=== PATIENT | male | born 1950 | race Caucasian/White ===

== ENCOUNTER 2023-01-07 09:55 | Inpatient (IN) | payer OTHER ==
--- OUTSIDE RECORDS SUMMARY | 2023-01-07 10:26 | XMS REPORT | Continuity of Care Document ---
:1950 Author Organization [facility] t Address [address] [place] [address] [place] [id number] Care Team Providers Name Role Phone JATINDER FARRIS Attending Clinician Unavailable Doctor Unassigned, [place] Attending Clinician Unavailable Only, Adc Test Attending Clinician Unavailable Jatinder Farris MD Attending Clinician Pob, Adc Lab Main Attending Clinician Unavailable JATINDER FARRIS Admitting Clinician Unavailable Payers Payer Name Policy Type Policy Number Effective Date Expiration Date S marcelo MEDICARE PART A [id number] 2002 \\T\\ B 00:00:00 [employer] INDEMNITY [id number] 2013 00:00:00 Problems This patient has no known problems. Allergies, Adverse Reactions, Alerts Allergy Allergy Status Severity Reaction(s) Onset Inactive Treating Comm ents Source Name Type Date Date Clinician Hydromor Drug Active Hallucinatio Patient U nivers phone Allergy ns 05-20 states ity of 00:00: that it [place] 00 makes him Medical "nuts" Branch HYDROMOR DRUG Active Med Anxiety Univers PHONE INGREDI 05-20 ity of 00:00: [place] 00 Medical Branch NO KNOWN Drug Active Univers ALLERGIE Class ity of S [facility] Social History Social Habit Start Date Stop Date Quantity Comments Source Sex Assigned At [facility] Medical Branch Exposure to Not sure [facility] SARS-CoV-2 (event) Medica l Branch Tobacco use and 2020-05-20 2020-05-20 Never used [facility] exposure 00:00:00 00:00:00 Medical [place] Smoking Status Start Date Stop Date Source Unknown if ever smoked [facility] Never smoker [facility] Medications Ordered Filled Start Stop Current Ordering Indication Dosage Frequency Signature Comments Components Source Medication Medication Date Date Medication? Clinician (SIG) Name Name morphine ER 2020-0 Yes 30mg Take 30 mg Univers 30 mg 12 hr 9-21 by mouth ity of tablet 13:48: every 12 [place] 37 (twelve) Medical hours. Branch methocarbam 2020-0 Yes 750mg Take 750 U nivers oL 9-21 mg by ity of (ROBAXIN-75 13:48: mouth 2 Bill as 0) 750 mg 37 (two) Medical tablet times Branch daily. amitriptyli 2020-0 Yes 150mg Take 150 U nivers ne 150 mg 9-21 mg by ity of tablet 13:48: mouth at [place] 37 bedtime. Medical Branch morphine ER 2020-0 Yes 30mg Take 30 mg Univers 30 mg 12 hr 9-18 by mouth ity of tablet 20:52: every 12 [place] 05 (twelve) Medical hours. Branch methocarbam 2020-0 Yes 750mg Take 750 U nivers oL 9-18 mg by ity of (ROBAXIN-75 20:52: mouth 2 Bill as 0) 750 mg 05 (two) Medical tablet times Branch daily. amitriptyli 2020-0 Yes 150mg Take 150 U nivers ne 150 mg 9-18 mg by ity of tablet 20:52: mouth at [place] 05 bedtime. Medical Branch Procedures Procedure Date / Time Performing Clinician Source Performed DAY SURGERY - ADC 2020-05-23 05:01:00 Doctor Unassigned, No [facility] CBC WITH DIFF 2020-05-19 15:02:00 Jatinder Farris [facility] PROTHROMBIN TIME / INR 2020-05-19 15:02:00 [facility] 2020-05-19 15:02:00 Jatinder Farris [facility] THRMPLAS TONY [facility] ADC OR CLC ONLY - 2020-05-19 15:02:00 Jatinder Farris [facility] PLATELET FUNCTION TEST Medical B ranch ASSIGNMENT OF BENEFITS 2020-05-19 14:45:32 Doctor Unassigned, No [facility] Encounters Start End Encounter Admission Attending Care Care Encounter Source Date/Time Date/Time Type Type Clinicians Facility Department ID 2021-06-30 Outpatient R ANA FARRIS ISAEL [id number] Univers 18:21:58 JATINDER ity [facility] 2020-05-23 2020-05-23 Orders Doctor WILMER [id number] Univers 00:00:00 00:00:00 Only Unassigned, BECKY 350.1.13.10 ity of [facility] 4.2.7.2.686 Bill as [id number] [address] 2020-05-20 2020-05-20 Laboratory Only, Adc Test [facility] 1.2.840. 114 [id number] Univers 15:56:50 16:11:50 Only Jatinder Farris 350.1.13.1 0 ity of [place]2.686 [place] [id number] [address] 2020-05-20 2020-05-20 Outpatient R KUNAL [facility] [id number] Univers 12:45:00 12:45:00 JATINDER ity [facility] 2020-05-19 2020-05-19 Irrigation System Operator Sheri, Adc Lab Main [facility] 1.2.8 40.114 [id number] Univers 09:40:22 09:55:22 Visit Wendi Farrist Adriel Kyle 350.1.13.1 0 ity of Telephone 4.2.7.2.686 [facility] [id number] [address] 2020-05-19 2020-05-19 [facility] [id number] Univers 09:30:00 09:30:00 JATINDER ity [facility] 2020-05-19 2020-05-19 Orders Doctor WILMER [id number] Univers 00:00:00 00:00:00 Only Unassigned, BECKY 350.1.13.10 ity of [facility] 4.2.7.2.686 Bill as [id number] [address] Results Test Description Test Time Test Comments Results Result Comments Source aPTT 2020-05-19 17:49:00 Test Item Value Reference Range Interpretation Comme nts APTT Patient (test code = See_Comment [ Automated message] The 3173-2) system which ge nerated this result tra nsmitted reference range : 23 - 38 Seconds. The re ference range was not u sed to interpret this result as normal/abnormal . NILAM (test code = NILAM) The [facility] patient population mean normal value for aPTT is 30 seconds. Lab Interpretation (test Normal code = 45541-6) [facility] [id number] 17:47:00 Test Item Value Reference Range Interpretation Comments PROTIME PATIENT (test See_Comment [Auto mated message] code = 5964-2) The system ich generated this result transmitted ref erence range: 12.0 - 1 4.7 Seconds. The re ference range was not u sed to interpret this result as normal/abnor mal. INR (test code = 6301-6) Nor mal INR <1.1; Warfarin Therap eutic range 2.0 to 3. 0 or 2.5 to 3.5, dep ending upon the indica tions. Lab Interpretation (test Normal code = 19963-2) [facility] - PLATELET FUNCTION TEST 2020-05-19 17:45:00 Test Item Value Reference Range Interpretation Comments COL/ADP ADP test not (test code performed due t o = EPI result with in [id number]) normal range. Tommy Adriel Nhung 05/19/2020 12:42 COL/EPI See_Comment [Automated (test code message] The = system which [id number]) generated this result transmitted reference range : 80 - 184 Second s. The reference range was not used to interpr et this result as normal/abnormal . NILAM (test ? code = NILAM) INTERPRETATION/ASSESSMENT OF PLATELET FUNCTION PFA ? Normal ?ASA(Aspirin) ? vWD, Thrombasthenia or Result ? review platelet count and H&H ? COL/EPI ? Normal ?Abnormal ? Abnormal ? COL/ADP ? Not Done ?Normal ? Abnormal If platelets are below 100,000 and both PFA results are abnormal, this indicatesquantitative and/or qualitative platelet abnormality with potential failure toform primary hemostatic plug. ?Platelet supplements should be considered if clinicallyindicated. If platelets are above 100,000 but hematocrit is below 25 and both PFA results areabnormal, this indicates platelet dysfunction due to a disturbance in normal laminarblood flow with a potential to bleed. ?Consider red cell transfusion prior to consideringplatelet supplements. [facility] WITH [id number] 15:09:00 Test Item Value Reference Range Interpretation Comments WBC (test code = See_Comment [Automated 9690-2) message] The sy stem which generated this result transmitted reference range : 4.20 - 10.70 10*3/?L. The reference range was not used to interpret this result as normal/abnormal . RBC (test code = See_Comment [Automated 499-8) message] The sy stem which generated this result transmitted reference range : 4.26 - 5.52 10*6/?L. The reference range was not used to interpret this result as normal/abnormal . HGB (test code = 15.2 g/dL 12.2-16.4 718-7) HCT (test code = 46.5 % 38.4-49.3 4544-3) MCV (test code = 93.2 fL 81.7-95.6 787-2) MCH (test code = 30.5 pg 26.1-32.7 785-6) MCHC (test code = 32.7 g/dL 31.2-35 786-4) RDW-SD (test code = 45.2 fL 38.5-51.6 70954-6) RDW-CV (test code = 13.2 % 12.1-15.4 788-0) PLT (test code = See_Comment [Automated 777-3) message] The sy stem which generated this result transmitted reference range : 150 - 328 10*3/ ?L. The reference r carina was not used to interpret this result as normal/abnormal . MPV (test code = 9.7 fL 9.8-13 L 31471-9) NRBC/100 WBC (test See_Comment [Automat ed code = [id number]) message] The system which generated this result transmitted reference range : 0.0 - 10.0 /100 WBCs. The refer ence range was not u sed to interpret th is result as normal/abnormal . NRBC x10^3 (test code <0.01 See_Comment [Auto mated = [id number]) message] The s ystem which generated this result transmitted reference range : 10*3/?L. The reference range was not used to interpret this result as normal/abnormal . GRAN MAT (NEUT) % 60.9 % (test code = 770-8) IMM GRAN % (test code 0.30 % = 2303270520) LYMPH % (test code = 29.4 % 736-9) MONO % (test code = 6.0 % 5905-5) EOS % (test code = 2.8 % 713-8) BASO % (test code = 0.6 % 706-2) GRAN MAT x10^3(ANC) 3.85 10*3/uL 1.99-6.95 (test code = 3594568214) IMM GRAN x10^3 (test <0.03 0-0.06 code = 5244056604) LYMPH x10^3 (test code 1.86 10*3/uL 1.09-3.23 = 731-0) MONO x10^3 (test code 0.38 10*3/uL 0.36-1.02 = 742-7) EOS x10^3 (test code = 0.18 10*3/uL 0.06-0.53 711-2) BASO x10^3 (test code 0.04 10*3/uL 0.01-0.09 = 704-7) Lab Interpretation Abnormal (test code = 45117-6) [facility]
[2023-01-07 10:59] LABS: Absolute Lymphocytes (CBC) 0.6 K/uL (0.7-4.9); Hematocrit 22.1 % (39.6-49.0); Lymphocytes % 8.7 % (15.3-44.8); MCV 68.6 fL (80-100); MPV 6.5 fL (7.6-11.3); RBC Red Blood Cell Count 3.23 M/uL (4.33-5.43)
[2023-01-07 11:06] LABS: ALT/SGPT 11 U/L (16-61); AST/SGOT 9 U/L (15-37); Albumin 2.5 g/dL (3.4-5.0); Alkaline Phosphatase 89 U/L (45-117); BUN Blood Urea Nitrogen 12 mg/dL (7-18); Bicarbonate 26 mEq/L (21-32); Bilirubin Total 0.3 mg/dL (0.2-1.0); Glomerular Filtration Rate 82 ml/min (=/>90); Glucose Level 119 mg/dL (74-106); Magnesium 2.1 mg/dL (1.6-2.4); NT PRO-BNP 344 pg/mL (<125); Potassium 4.3 mEq/L (3.5-5.1); Protein, Total 6.1 g/dL (6.4-8.2); Sodium Level 133 mEq/L (136-145); Troponin High Sensitivity 13.6 pg/mL (<58.9)
--- NOTE | 2023-01-07 11:14 | RAD REPORT ---
EXAM DESCRIPTION: RAD - Chest Single View - 01/07/2023 10:41 am CLINICAL HISTORY: Dizzy Chest pain. COMPARISON: Abdomen 1 View (KUB) dated 07/29/2017; Abdomen 1 View (KUB) dated 07/16/2017; Abdomen 1 View (KUB) dated 07/08/2017; Abdomen 1 View (KUB) dated 06/25/2017; Outpt Chest Pa/Lat (2 Views) dated 06/25/2017 FINDINGS: Portable technique limits examination quality. Postoperative changes are noted involving the left lung, unchanged. Diffuse COPD. Left lung volume lo ss is noted. The heart is normal in size. No displaced fractures. IMPRESSION: No acute intrathoracic process suspected.
[2023-01-07 11:29] LABS: Bilirubin Direct < 0.1 mg/dL (0-0.2)
[2023-01-07 12:05] LABS: Anisocytosis 2+; Blood Morphology Comment NOTED (NOT SEEN); Platelet Estimate ADEQ; White Blood Cell Scan OK (OK)
--- NOTE | 2023-01-07 12:35 | ER ---
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 nj1 Positive orthostatic vital signs per office staff. No complaints at this moment. 10:06 Method Of Arrival: EMS: [facility] or1 10:06 Coronavirus screen: Vaccine status: Patient reports being unvaccinated. Ebola Screen: [facility] No symptoms or risks identified at this time. Initial Sepsis Screen: Does the patient meet any 2 criteria? HR > 90 bpm. No. Patient's initial sepsis screen is negative. Does the patient have a suspected source of infection? No. Patient's initial sepsis screen is negative. Risk Assessment: Do you want to hurt yourself or someone else? Patient reports no desire to harm self or others. Onset of symptoms was January 07, 2023. 10:06 Acuity: VANITA 3 nj1 10:30 Care prior to arrival: Medication(s) given: Normal saline infusion, 800ml. [facility] Triage Assessment: 10:26 General: Appears in no apparent distress. comfortable, Behavior is calm, cooperative, nj1 appropriate for age. Pain: Denies pain. Neuro: No deficits noted. Level of Consciousness is awake, alert, obeys commands, Oriented to person, place, time, situation. Cardiovascular: Patient's skin is warm and dry. Respiratory: No deficits noted. Airway is patent Respiratory effort is even, unlabored. Historical: - Allergies: 10:06 No Known Allergies; nj1 - Home Meds: 10:06 MS Contin 30 mg Oral tablet, extended release 1 tab every 12 hours for severe chronic nj1 pain requiring long-term opioid treatment [Active]; methocarbamol 750 mg Oral tablet 1 tab twice a day [Active]; amitriptyline 150 mg Oral tablet 1 tab every day at bedtime [Active]; - PMHx: 10:06 Lymphoma (remission); Chronic back pain; nj1 - PSHx: 10:06 Pain pump; nj1 - Immunization history:: Client reports having NOT received the Covid vaccine. - Social history:: Smoking status: Patient denies any tobacco usage or history of. Screenin:27 [facility] ED Fall Risk Assessment (Adult) History of falling in the last 3 months, njDelio including since admission Yes- single mechanical fall (1 pt) Confusion or Disorientation No (0 pts) Intoxicated or Sedated No (0 pts) Impaired Gait Yes (1 pt) Mobility Assist Device Used Yes (1 pt) Altered Elimination No (0 pt) Score/Fall Risk Level 3 or more points = High Risk Oriented to surroundings, Maintained a safe environment, Assessed \T\ reinforced patient's understanding of fall precautions, Hourly rounding (assess needs \T\ fall precautionary measures) done, Used ambulatory aids as needed (educated on \T\ assisted with), Offered frequent toileting (1:1 observation), Remained with patient while ambulating. Abuse screen: Denies threats or abuse. Denies injuries from another. Nutritional screening: No deficits noted. Tuberculosis screening: No symptoms or risk factors identified. Assessment: 10:30 Reassessment: Patient appears in no apparent distress at this time. Patient and/or nj1 family updated on plan of care and expected duration. Pain level reassessed. Patient is alert, oriented x 3, equal unlabored respirations, skin warm/dry/pink. See triage assessment. 11:44 Reassessment: Patient appears in no apparent distress at this time. Patient and/or nj1 family updated on plan of care and expected duration. Pain level reassessed. Patient is alert, oriented x 3, equal unlabored respirations, skin warm/dry/pink. Patient denies pain at this time. Patient states feeling better. Patient states symptoms have improved. 12:30 Reassessment: Patient appears in no apparent distress at this time. Patient and/or nj1 family updated on plan of care and expected duration. Pain level reassessed. Patient is alert, oriented x 3, equal unlabored respirations, skin warm/dry/pink. Patient state he is cannot stay in the hospital, requesting for someone to take him to information services assistant office where his truck is at. 12:50 Reassessment: Upon entering patients room with discharge paperwork and wheelchair, njDelio patient has voiced willingness to stay in hospital and be admitted as advised by ED physician Dr Carpio. This RN notifies charge nurse and ED provider. 14:00 Reassessment: Patient appears in no apparent distress at this time. Patient and/or nj1 family updated on plan of care and expected duration. Pain level reassessed. Patient is alert, oriented x 3, equal unlabored respirations, skin warm/dry/pink. 15:00 Reassessment: Patient appears in no apparent distress at this time. Patient and/or nj1 family updated on plan of care and expected duration. Pain level reassessed. Patient is alert, oriented x 3, equal unlabored respirations, skin warm/dry/pink. 16:00 Reassessment: Patient appears in no apparent distress at this time. Patient and/or nj1 family updated on plan of care and expected duration. Pain level reassessed. Patient is alert, oriented x 3, equal unlabored respirations, skin warm/dry/pink. Blood consent signed. Patient denies pain at this time. 16:22 Reassessment: Unsuccessful attempt to call report at this time, nurse unavailable. [facility] Vital Signs: 10:06 BP 123 / 81; Pulse 106; Resp 18; Temp 98.9(O); Pulse Ox 97% on R/A; Weight 81.65 kg; or1 Height 6 ft. 3 in. ; 11:44 BP 127 / 81; Pulse 94; Resp 18; Pulse Ox 100% on R/A; nj1 13:00 BP 143 / 89; Pulse 90; Resp 18; Pulse Ox 99% on R/A; nj1 14:00 BP 139 / 77; Pulse 88; Resp 18; Pulse Ox 95% ; or1 15:00 BP 129 / 73; Pulse 88; Resp 18; Pulse Ox 99% on R/A; nj1 16:00 BP 137 / 74; Pulse 89; Resp 19; Pulse Ox 100% on R/A; nj1 10:06 Body Mass Index 22.50 (81.65 kg, 190.5 cm) [facility] ED Course: 10:06 Patient has correct armband on for positive identification. Bed in low position. Call [facility] light in reach. Side rails up X 1. 10:10 Patient arrived in ED. aa5 10:12 Jared Carpio MD is Attending Physician. kdr 10:19 Kiana Reeder, CHAN is Primary Nurse. nj1 10:23 Triage completed. nj1 10:26 Arm band placed on. nj1 10:30 Maintain EMS IV. Dressing intact. Good blood return noted. Site clean \T\ dry. Gauge \T\ nj 1 site: 20 R FA. 10:42 XRAY Chest (1 view) In Process Unspecified. EDMS 10:46 EKG done, by ED staff, reviewed by Jared Carpio MD. em1 12:49 Primary Nurse role handed off by Kiana Reeder, RN nj1 13:15 Gonzalo Ram MD is Hospitalizing Provider. kdr 14:01 Kiana Reeder, RN is Primary Nurse. nj1 16:17 No provider procedures requiring assistance completed. nj1 16:17 Patient admitted, IV remains in place. nj1 Administered Medications: No medications were administered Medication: 16:17 VIS not applicable for this client. nj1 Outcome: 12:34 Discharge ordered by . kdr 13:16 Decision to Hospitalize by Provider. kdr 16:10 Admitted to Tele accompanied by tech, via wheelchair, room 407, Report called to Nurse naya Siria, called by Merlin Goodson RN. 16:10 Condition: stable nj1 16:10 Instructed on the need for admit. 16:20 Patient left the ED. nj1 Signatures: Dispatcher [employer] EDMS annePhilly bd Jared Carpio MD MD [facility] Zach Perales em1 Liz Simon, RN RN aa5 Kiana Reeder, RN RN nj1 Corrections: (The following items were deleted from the chart) 12:49 12:43 Patient left the ED. bd nj1 14:34 14:33 BP 143 / 89; Pulse 90bpm; Resp 18bpm; Pulse Ox 99% RA; nj1 nj1 16:18 16:00 Reassessment: Patient appears in no apparent distress at this time. Patient nj1 and/or family updated on plan of care and expected duration. Pain level reassessed. Patient is alert, oriented x 3, equal unlabored respirations, skin warm/dry/pink. Patient denies pain at this time. nj1
--- NOTE | 2023-01-07 12:35 | EDPHYS ---
Physician Documentation [facility] Name: Carlo Neri Age: 72 yrs Sex: Male : 1950 Arrival Date: 01/07/2023 Time: 09:55 Bed 8 Private MD: ED Physician Jared Carpio HPI: 01/07 13:56 This 72 yrs old Male presents to ER via EMS with complaints of Dizziness - Resolved. 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 The office kdr staff performed orthostatics and noted that he was positive. Patient otherwise has no complaints other than feeling generally weak for the past year.. The patient presents with dizziness, generalized weakness, lightheadedness. Onset: The symptoms/episode began/occurred suddenly, just prior to arrival, today. Context: occurred at an office. Modifying factors: The symptoms are alleviated by nothing, the symptoms are aggravated by standing up, changing position. Associated signs and symptoms: The patient has no apparent associated signs or symptoms. Severity of symptoms: At their worst the symptoms were mild moderate just prior to arrival, in the emergency department the symptoms are unchanged. Historical: - Allergies: 10:06 No Known Allergies; nj1 - Home Meds: 10:06 MS Contin 30 mg Oral tablet, extended release 1 tab every 12 hours for severe chronic nj1 pain requiring long-term opioid treatment [Active]; methocarbamol 750 mg Oral tablet 1 tab twice a day [Active]; amitriptyline 150 mg Oral tablet 1 tab every day at bedtime [Active]; - PMHx: 10:06 Lymphoma (remission); Chronic back pain; nj1 - PSHx: 10:06 Pain pump; nj1 - Immunization history:: Client reports having NOT received the Covid vaccine. - Social history:: Smoking status: Patient denies any tobacco usage or history of. ROS: 14:09 Constitutional: Negative for fever, chills, and weight loss, Eyes: Negative for injury, kdr pain, redness, and discharge, Neck: Negative for injury, pain, and swelling, Cardiovascular: Negative for chest pain, palpitations, and edema, Respiratory: Negative for shortness of breath, cough, wheezing, and pleuritic chest pain, Abdomen/GI: Negative for abdominal pain, nausea, vomiting, diarrhea, and constipation, Back: Negative for injury and pain, : Negative for injury, bleeding, discharge, and swelling, MS/Extremity: Negative for injury and deformity, Skin: Negative for injury, rash, and discoloration, Psych: Negative for depression, anxiety, suicide ideation, homicidal ideation, and hallucinations, Allergy/Immunology: Negative for hives, rash, and allergies, Endocrine: Negative for neck swelling, polydipsia, polyuria, polyphagia, and marked weight changes, Hematologic/Lymphatic: Negative for swollen nodes, abnormal bleeding, and unusual bruising. 14:09 Neuro: Positive for dizziness, weakness. Exam: 14:09 Constitutional: This is a well developed, well nourished patient who is awake, alert, kdr and in no acute distress. Head/Face: Normocephalic, atraumatic. Eyes: Pupils equal round and reactive to light, extra-ocular motions intact. Lids and lashes normal. Conjunctiva and sclera are non-icteric and not injected. Cornea within normal limits. Periorbital areas with no swelling, redness, or edema. Neck: Trachea midline, no thyromegaly or masses palpated, and no cervical lymphadenopathy. Supple, full range of motion without nuchal rigidity, or vertebral point tenderness. No Meningismus. Chest/axilla: Normal chest wall appearance and motion. Nontender with no deformity. No lesions are appreciated. Cardiovascular: Regular rate and rhythm with a normal S1 and S2. No gallops, murmurs, or rubs. Normal PMI, no JVD. No pulse deficits. Respiratory: Lungs have equal breath sounds bilaterally, clear to auscultation and percussion. No rales, rhonchi or wheezes noted. No increased work of breathing, no retractions or nasal flaring. Abdomen/GI: Soft, non-tender, with normal bowel sounds. No distension or tympany. No guarding or rebound. No evidence of tenderness throughout. Back: No spinal tenderness. No costovertebral tenderness. Full range of motion. Skin: Warm, dry with normal turgor. Normal color with no rashes, no lesions, and no evidence of cellulitis. MS/ Extremity: Pulses equal, no cyanosis. Neurovascular intact. Full, normal range of motion. Neuro: Awake and alert, GCS 15, oriented to person, place, time, and situation. Cranial nerves II-XII grossly intact. Motor strength 5/5 in all extremities. Sensory grossly intact. Cerebellar exam normal. Normal gait. Psych: Awake, alert, with orientation to person, place and time. Behavior, mood, and affect are within normal limits. Vital Signs: 10:06 BP 123 / 81; Pulse 106; Resp 18; Temp 98.9(O); Pulse Ox 97% on R/A; Weight 81.65 kg; nj1 Height 6 ft. 3 in. ; 11:44 BP 127 / 81; Pulse 94; Resp 18; Pulse Ox 100% on R/A; nj1 13:00 BP 143 / 89; Pulse 90; Resp 18; Pulse Ox 99% on R/A; [facility] 14:00 BP 139 / 77; Pulse 88; Resp 18; Pulse Ox 95% ; [facility] 15:00 BP 129 / 73; Pulse 88; Resp 18; Pulse Ox 99% on R/A; [facility] 16:00 BP 137 / 74; Pulse 89; Resp 19; Pulse Ox 100% on R/A; [facility] 10:06 Body Mass Index 22.50 (81.65 kg, 190.5 cm) [facility] MDM: 10:22 Patient medically screened. [facility] 14:09 Data reviewed: vital signs, nurses notes, lab test result(s), radiologic studies. [facility] 01/07 10:24 Order name: Basic Metabolic Panel; Complete Time: 12:21 [facility] 01/07 10:24 Order name: CBC with Diff; Complete Time: 12:21 [facility] 01/07 10:24 Order name: LFT's; Complete Time: 12:21 [facility] 01/07 10:24 Order name: Magnesium; Complete Time: 12:21 [facility] 01/07 10:24 Order name: NT PRO-BNP; Complete Time: 12:21 [facility] 01/07 10:24 Order name: Troponin HS; Complete Time: 12:21 [facility] 01/07 11:06 Order name: CBC Smear Scan; Complete Time: 12:21 [facility] 01/07 13:19 Order name: Bb Add On bd 01/07 13:57 Order name: Type And Screen bd 01/07 14:05 Order name: Packed RBC Leukored EDAZ 01/07 10:24 Order name: XRAY Chest (1 view); Complete Time: 12:21 [facility] 01/07 10:24 Order name: EKG; Complete Time: 10:24 [facility] 01/07 10:24 Order name: Cardiac monitoring; Complete Time: 10:37 kdr 01/07 10:24 Order name: EKG - Nurse/Tech; Complete Time: 10:46 kdr 01/07 10:24 Order name: IV Saline Lock; Complete Time: 10:37 kdr 01/07 10:24 Order name: Labs collected and sent; Complete Time: 10:37 kdr 01/07 10:24 Order name: O2 Per Protocol; Complete Time: 10:28 kdr 01/07 10:24 Order name: O2 Sat Monitoring; Complete Time: 10:28 kdr Administered Medications: No medications were administered Disposition Summary: 01/07/23 13:16 Hospitalization Ordered Hospitalization Status: Observation kdr Provider: Gonzalo Ram Location: Telemetry/MedSurg (observation)(01/07/23 13:16) kdr Condition: Fair(01/07/23 13:16) kdr Problem: new(01/07/23 13:16) kdr Symptoms: have improved(01/07/23 13:16) kdr Bed/Room Type: Standard kdr Room Assignment: 407(01/07/23 15:44) dw Diagnosis - Anemia, unspecified(01/07/23 13:16) kdr - Weakness(01/07/23 13:16) kdr - Dizziness kdr Forms: - Medication Reconciliation Form kdr - SBAR form kdr Signatures: Dispatcher [employer] Daphne Reich RN RN dw Abdulkadir Mcgowan MD MD cha Rittger, Kevin, MD MD kdr Jaco, Norma, RN RN nj1 Corrections: (The following items were deleted from the chart) 13:14 12:34 Home kdr kdr 13:14 12:34 new kdr kdr 13:14 12:34 are unchanged kdr kdr 13:14 12:34 Stable kdr kdr 13:14 12:34 Weakness kdr kdr 13:14 12:34 Anemia, unspecified kdr kdr 13:14 12:34 Dizziness kdr kdr 15:44 13:16 kdr dw
[2023-01-07] MEDS ORDERED: HYDROCODONE/APAP 5/325 MG TAB PO PRN (14:39)
[2023-01-07] MEDS ORDERED: ACETAMINOPHEN 325 MG TABLET PO PRN (14:39)
[2023-01-07] MEDS ORDERED: SODIUM CHLORIDE 0.9% 10ML INJ IV PRN (14:45)
[2023-01-07 16:35] VITALS: BMI 22.5
[2023-01-07] MEDS ORDERED: NA CHLORIDE 0.9% 250 ML ONE (17:00)
[2023-01-07] MEDS ORDERED: NALOXONE 0.4 MG/ML VIAL IV PRN (17:29)
[2023-01-07] MEDS ORDERED: [UNRECOGNIZED DRUG - OTHER] IV SCH (17:30)
[2023-01-07] MEDS: PANTOPRAZOLE 40 MG INJ IVP SCH ×2 (18:03→21:00)
[2023-01-07] MEDS: MORPHINE *EXTENDED RELEASE* 15 MG TAB PO SCH (18:56)
[2023-01-07] MEDS: methocarbamoL 750 MG TAB PO SCH (19:00)
[2023-01-07] MEDS: AMITRIPTYLINE 50 MG TAB PO SCH (21:00)
[2023-01-07] MEDS ORDERED: MORPHINE SULFATE 30 MG PO SCH (21:00)
[2023-01-07] MEDS ORDERED: AMITRIPTYLINE HCL 150 MG PO SCH (21:00)
--- NOTE | 2023-01-08 04:38 | P.HP ---
Certification for Inpatient Patient admitted to: Observation With expected LOS: <2 Midnights Patient will require the following post-hospital care: None Practitioner: I am a practitioner with admitting privileges, knowledge of patient current condition, hospital course, and medical plan of care. Services: Services provided to patient in accordance with Admission requirements found in Title 42 Section 412.3 of the Code of Federal Regulations Patient History Date of Service: 01/07/23 Reason for admission: Dizziness and Lightheadedness History of Present Illness: Patient is a 72-year-old male with a past medical history significant for chronic back pain, lymphoma who presents with complaint of dizziness and lightheadedness onset today. 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 Patient reported that his BP was noted to be low. Patient was referred to the ER. Patient reported associated signs and symptoms of bilateral lower extremity edema, fatigue, weakness and shortness of breath with exertion. Patient denies any other signs and symptoms. Symptoms are aggravated or relieved by nothing. Patient decided to present to the hospital as directed. Allergies hydromorphone [From Dilaudid] Adverse Reaction (Verified 07/16/17 09:53) hallucinations Home Medications: Amitriptyline HCl 150 mg PO BEDTIME 06/25/17 Morphine Sulfate [Ms Contin] 30 mg PO BID 06/25/17 Pain Pump 1 appl IV CONT 06/25/17 methocarbamoL [Robaxin] 750 mg PO BID 06/25/17 - Past Medical/Surgical History Has patient received pneumonia vaccine in the past: Yes -: lymphoma -: chronic back pain -: pain pump -: back sx -: skin ca removals -: lens implants bilateral -: appy -: lung sx -: bilateral knee sx -: rectal fistula -: bilateral bunyun removal - Social History Smoking Status: Former smoker Alcohol use: No CD- Drugs: No Caffeine use: Yes Place of Residence: Home Review of Systems General: Weakness, Other (Fatigue) Eyes: Unremarkable ENT: Unremarkable Respiratory: SOB with Excertion Cardiovascular: Light Headedness Gastrointestinal: Unremarkable Genitourinary: Unremarkable Musculoskeletal: Back Pain, Pedal edema Integumentary: Unremarkable Neurological: Other (Dizziness ) Physical Examination - Vital Signs Temperature: 98.3 F Blood Pressure: 119/68 Pulse: 91 Respirations: 16 Pulse Ox (%): 99 - Physical Exam General: Alert, In no apparent distress, Cooperative HEENT: Atraumatic, PERRLA, Mucous membr. moist/pink, EOMI, Sclerae nonicteric Neck: Supple, 2+ carotid pulse no bruit, No LAD, Without JVD or thyroid abnormality Respiratory: Clear to auscultation bilaterally, Normal air movement Cardiovascular: Regular rate/rhythm, Normal S1 S2, Edema Capillary refill: <2 Seconds Gastrointestinal: Normal bowel sounds, No tenderness Musculoskeletal: No clubbing, No tenderness Integumentary: No rashes Neurological: Normal gait, Normal speech, Normal strength at 5/5 x4 extr, Normal tone, Normal affect Lymphatics: No axilla or inguinal lymphadenopathy - Studies Laboratory Data (last 24 hrs) 01/07/23 10:34: WBC 6.80, Hgb 6.9 L, Hct 22.1 L, Plt Count 401 01/07/23 10:34: Sodium 133 L, Potassium 4.3, BUN 12, Creatinine 0.98, Glucose 119 H, Magnesium 2.1, Total Bilirubin 0.3, AST 9 L, ALT 11 L, Alkaline Phosphatase 89 Assessment and Plan - Plan ---Symptomatic anemia. Patient denies any GI bleed. Pending PRBC transfusion. Gastroenterology consulted. Patient placed on Protonix. Will await further recommendations. --Chronic back pain. We will manage pain with current pain medication regimen. --History of lymphoma. Status post chemotherapy. Patient reported remission. --CKD 2. Stable. We will continue to monitor renal function. --BLE edema. BNP elevated. Echo pending to assess cardiac structures and functions. Continue supportive care -- DVT prophylaxis with SCDs. Discharge Plan: Home Plan to discharge in: 48 Hours - Advance Directives Does patient have a Living Will: No Does patient have a Durable POA for Healthcare: No - Code Status/Comfort Care Code Status Assessed: Yes Physician Review: Patient Assessed, Agree with Above Assessment and Plan Critical Care: No
[2023-01-08] MEDS ORDERED: ONDANSETRON 4 MG/2 ML VIAL IV PRN (04:43)
[2023-01-08 06:43] LABS: Absolute Lymphocytes (CBC) 1.1 K/uL (0.7-4.9); Lymphocytes % 15.5 % (15.3-44.8); MPV 6.6 fL (7.6-11.3)
[2023-01-08 06:54] LABS: AST/SGOT 10 U/L (15-37); Albumin 2.3 g/dL (3.4-5.0); Alkaline Phosphatase 91 U/L (45-117); BUN Blood Urea Nitrogen 10 mg/dL (7-18); Bicarbonate 28 mEq/L (21-32); Bilirubin Total 0.7 mg/dL (0.2-1.0); Glomerular Filtration Rate 92 ml/min (=/>90); Glucose Level 92 mg/dL (74-106); Phosphorus 2.8 mg/dL (2.5-4.9); Potassium 4.4 mEq/L (3.5-5.1); Protein, Total 6.6 g/dL (6.4-8.2); Sodium Level 135 mEq/L (136-145)
[2023-01-08] MEDS: methocarbamoL 750 MG TAB PO SCH ×2 (06:54→18:47)
[2023-01-08] MEDS: MORPHINE *EXTENDED RELEASE* 15 MG TAB PO SCH ×2 (06:54→18:47)
[2023-01-08 06:55] LABS: Magnesium 2.2 mg/dL (1.6-2.4)
[2023-01-08 06:59] LABS: ALT/SGPT < 10 U/L (16-61)
--- NOTE | 2023-01-08 07:53 | EKG ---
Test Date: 2023-01-07 Test Time: 10:41:57 Hotel Houseman: HIMANSHU MEASUREMENT RESULTS: Intervals: Rate: 103 CT: 154 QRSD: 108 QT: 360 QTc: 471 Liberal: P: 77 CT: 154 QRS: 68 T: 76 INTERPRETIVE STATEMENTS: Sinus tachycardia Otherwise normal ECG Compared to ECG 06/25/2017 11:19:40 Sinus rhythm no longer present Electronically Signed On 01-08-23 07:52:29 CDT by Abraham Smith
[2023-01-08] MEDS ORDERED: ASPIRIN 81 MG CHEWABLE TABLET PO SCH (09:00)
[2023-01-08] MEDS: PANTOPRAZOLE 40 MG INJ IVP SCH ×2 (09:36→21:02)
--- NOTE | 2023-01-08 16:16 | P.PN ---
Subjective Date of Service: 01/08/23 Chief Complaint: Dizziness and Lightheadedness No acute events overnight. He has received 1 unit pRBCs, without any issues. He denies any bleeding, particularly any hematemesis, hematochezia, melena, hemoptysis, or hematuria. He denies any chest pain, palpitations, or shortness of breath. Review of Systems 10-point ROS is otherwise unremarkable General: Weakness (generalized) Physical Examination - Vital Signs Temperature: 98.3 F Blood Pressure: 118/71 Pulse: 86 Respirations: 18 Pulse Ox (%): 97 - Physical Exam General: Alert, In no apparent distress, Oriented x3 HEENT: Atraumatic, Mucous membr. moist/pink, Sclerae nonicteric Neck: JVD not distended Respiratory: Clear to auscultation bilaterally, Normal air movement Cardiovascular: Regular rate/rhythm, Normal S1 S2, No gallops, No rubs, No murmurs, Edema (trace BLE) Gastrointestinal: Normal bowel sounds, Soft and benign, Non-distended, No tenderness, No rebound, No guarding Musculoskeletal: No clubbing Integumentary: No rashes Neurological: Normal speech, Normal affect Assessment And Plan - Plan # Symptomatic Anemia - Consulted Gastroenterology - recommendations appreciated - Serial H&H - Hgb: 6.9 -> 8.7 (was 14.0 in June 2017) - S/P 1 unit pRBCs this admission - Transfuse for Hgb < 7.0 - 2 large bore IVs - Pantoprazole 40 mg IV BID - NPO pending GI recs # Chronic Back Pain s/p Pain Pump # History of Lymphoma Continue home pain pump, acetaminophen, amitriptyline, methocarbamol, and morphine Gonzalo Ram M.D.
[2023-01-08 18:36] LABS: Hematocrit 29.5 % (39.6-49.0)
[2023-01-08] MEDS: AMITRIPTYLINE 50 MG TAB PO SCH (21:00)
[2023-01-09 06:44] LABS: Absolute Lymphocytes (CBC) 1.4 K/uL (0.7-4.9); Hematocrit 30.8 % (39.6-49.0); Lymphocytes % 21.1 % (15.3-44.8); MCV 72.9 fL (80-100); MPV 6.6 fL (7.6-11.3); RBC Red Blood Cell Count 4.23 M/uL (4.33-5.43)
[2023-01-09] MEDS: methocarbamoL 750 MG TAB PO SCH ×2 (06:48→18:22)
[2023-01-09] MEDS: MORPHINE *EXTENDED RELEASE* 15 MG TAB PO SCH ×2 (06:48→18:23)
[2023-01-09 06:57] LABS: Potassium 3.7 mEq/L (3.5-5.1)
[2023-01-09] MEDS: PANTOPRAZOLE 40 MG INJ IVP SCH ×2 (07:50→20:43)
[2023-01-09] MEDS ORDERED: POTASSIUM 25 MEQ EFFERV TAB PO ONE (09:00)
--- NOTE | 2023-01-09 10:26 | ECHO ---
HEIGHT: 6 ft 3 in WEIGHT: 180 lb 0 oz DATE OF STUDY: 01/08/[address]: Peter Feldman 2-DIMENSIONAL: YES M.MODE: YES DOPPLER: YES COLOR FLOW: YES TDS: NO PORTABLE: YES DEFINITY: NO BUBBLE STUDY: NO DIAGNOSIS: BILATERAL LOWER EXTREMITY EDEMA, ELEVATED BNP CARDIAC HISTORY: CATHERIZATION: SURGERY: PROSTHETIC VALVE: PACEMAKER: MEASUREMENTS (cm) DIASTOLIC (NORMALS) SYSTOLIC (NORMALS) IVSd 1.0 (0.6-1.2) LA Diam 3.4 (1.9-4.0) LVEF 58% LVIDd 5.0 (3.5-5.7) LVIDs 3.5 (2.0-3.5) %FS 30% LVPWd 1.0 (0.6-1.2) Ao Diam 3.0 (2.0-3.7) 2 DIMENSIONAL ASSESSMENT: RIGHT ATRIUM: NORMAL LEFT ATRIUM: NORMAL RIGHT VENTRICLE: NORMAL LEFT VENTRICLE: NORMAL TRICUSPID VALVE: NORMAL MITRAL VALVE: MITRAL ANNULAR CALCIFICATION PULMONIC VALVE: NORMAL AORTIC VALVE: SCLEROSIS PERICARDIAL EFFUSION: NONE AORTIC ROOT: NORMAL LEFT VENTRICULAR WALL MOTION: DECREASED LEFT VENTRICULAR COMPLIANCE. DOPPLER/COLOR FLOW: MILD TRICUSPID AND MITRAL REGURGITATION. NORMAL RIGHT VENTRICULAR SYSTOLIC PRESSURE. COMMENTS: 1. GRADE I DIASTOLIC DYSFUNCTION. 2. MILD TRICUSPID AND MITRAL REGURGITATION. 3. MITRAL ANNULAR CALCIFICATION. 4. AORTIC SCLEROSIS. TECHNOLOGIST: Marie WADDELL
[2023-01-09] MEDS ORDERED: Ringers Lactate 1,000 ML IV ONE (11:17)
[2023-01-09] MEDS ORDERED: BISACODYL E.C. 5 MG TAB PO ONE (12:43)
[2023-01-09] MEDS ORDERED: MAGNESIUM CITRATE 300 ML BOT PO ONE (13:00)
[2023-01-09] MEDS ORDERED: LIDOCAINE 1% MPF 5 ML VIAL ONE (13:07)
[2023-01-09] MEDS ORDERED: propofoL 200 MG/20 ML VIAL IV ONE ×2 (13:07)
[2023-01-09] MEDS ORDERED: GOLYTELY 4000 ML PO ONE (14:00)
[2023-01-09] MEDS: METOCLOPRAMIDE 10 MG/2mL INJ IV SCH ×2 (14:17→18:24)
--- NOTE | 2023-01-09 17:09 | P.PN ---
Subjective Date of Service: 01/09/23 Chief Complaint: Dizziness and Lightheadedness No acute events overnight. His hemoglobin has stabilized. He reports no evidence of bleeding. Per Dr. Lloyd, plan for EGD today. He denies any chest pain, palpitations, or shortness of breath. Review of Systems 10-point ROS is otherwise unremarkable Physical Examination - Vital Signs Temperature: 97.6 F Blood Pressure: 124/69 Pulse: 95 Respirations: 16 Pulse Ox (%): 98 Assessment And Plan - Plan - Physical Exam General: Alert, In no apparent distress, Oriented x3 HEENT: Atraumatic, Mucous membr. moist/pink, Sclerae nonicteric Neck: JVD not distended Respiratory: Clear to auscultation bilaterally, Normal air movement Cardiovascular: Regular rate/rhythm, No murmurs, No edema Gastrointestinal: Normal bowel sounds, Soft, Non-distended, No tenderness Musculoskeletal: No clubbing Integumentary: No rashes Neurological: Normal speech, Normal affect # Symptomatic Anemia - Consulted Gastroenterology and spoke with Dr. Del Rosario- recommendations appr eciated - Plan for EGD today - Serial H&H - Hgb: 6.9 -> 8.7 -> 9.6 (was 14.0 in June 2017) - S/P 1 unit pRBCs this admission - Transfuse for Hgb < 7.0 - 2 large bore IVs - Pantoprazole 40 mg IV BID - NPO pending GI recs # Chronic Back Pain s/p Pain Pump # History of Lymphoma Continue home pain pump, acetaminophen, amitriptyline, methocarbamol, and morphine Gonzalo Ram M.D.
[2023-01-09] MEDS: AMITRIPTYLINE 50 MG TAB PO SCH (20:43)
[2023-01-10] MEDS: METOCLOPRAMIDE 10 MG/2mL INJ IV SCH (00:53)
[2023-01-10] MEDS: methocarbamoL 750 MG TAB PO SCH ×2 (06:30→18:26)
[2023-01-10] MEDS: MORPHINE *EXTENDED RELEASE* 15 MG TAB PO SCH ×2 (06:30→18:26)
[2023-01-10 06:48] LABS: Hematocrit 29.9 % (39.6-49.0)
[2023-01-10 07:04] LABS: Potassium 4.1 mEq/L (3.5-5.1)
[2023-01-10] MEDS: PANTOPRAZOLE 40 MG INJ IVP SCH (07:51)
[2023-01-10] MEDS ORDERED: Ringers Lactate 1,000 ML IV ONE (14:07)
--- NOTE | 2023-01-10 14:08 | P.PN ---
Subjective Date of Service: 01/10/23 Chief Complaint: Dizziness and Lightheadedness No acute events overnight. EGD yesterday revealed gastritis and duodenitis. Pathology report returned positive for Helicobacter Pylori. He reports that he feels that his symptoms have improved significantly since admission. He denies any abdominal pain, nausea, vomiting, diarrhea, or evidence of bleeding. Per Dr. Del Rosario, plan is for colonoscopy for today. Review of Systems 10-point ROS is otherwise unremarkable Physical Examination - Vital Signs Temperature: 97.7 F Blood Pressure: 121/61 Pulse: 103 Respirations: 16 Pulse Ox (%): 92 Assessment And Plan - Plan - Physical Exam General: Alert, In no apparent distress, Oriented x3 HEENT: Atraumatic, Mucous membr. moist/pink, Sclerae nonicteric Neck: JVD not distended Respiratory: Clear to auscultation bilaterally, Normal air movement Cardiovascular: Regular rate/rhythm, No murmurs, No edema Gastrointestinal: Normal bowel sounds, Soft, Non-distended, No tenderness Musculoskeletal: No clubbing Integumentary: No rashes Neurological: Normal speech, Normal affect # Symptomatic Anemia likely secondary to Helicobacter Pylori Gastritis/Duodenitis - Consulted Gastroenterology and spoke with Dr. Del Rosario- recommendations appreciated - EGD (01/09) = "A Small bowel, biopsy: - Duodenal mucosa with features consistent with peptic duodenitis B Stomach, biopsy: - Antral and oxyntic mucosa with focally active, chronic gastritis, Helicobacter related - Rare helicobacter organisms are identified on Diff Quick special stain - Negative for intestinal metaplasia and dysplasia" - Plan for colonoscopy today - Serial H&H - Hgb: 6.9 -> 8.7 -> 9.6 -> 9.5 (was 14.0 in June 2017) - S/P 1 unit pRBCs this admission - Transfuse for Hgb < 7.0 - 2 large bore IVs - Pantoprazole 40 mg IV BID - NPO pending GI recs # Chronic Back Pain s/p Pain Pump # History of Lymphoma Continue home pain pump, acetaminophen, amitriptyline, methocarbamol, and morphine Gonzalo Ram M.D.
[2023-01-10] MEDS ORDERED: propofoL 200 MG/20 ML VIAL IV ONE (14:54)
[2023-01-10] MEDS: AMOX/K CLAV 875 MG TAB PO SCH ×2 (16:59→20:58)
[2023-01-10] MEDS: PANTOPRAZOLE 40MG TABLET PO SCH (16:59)
--- NOTE | 2023-01-10 17:14 | RAD REPORT ---
EXAM DESCRIPTION: CTChest Abdomen Pelvis W Cont - 01/10/2023 4:36 pm CLINICAL HISTORY: Anal / rectal mass COMPARISON: No comparisons TECHNIQUE: CT of the chest, abdomen, and pelvis was performed. All CT scans are performed using dose optimization technique as appropriate and may include automated exposure control or mA/KV adjustment according to patient size. FINDINGS: Thorax: Chest Wall: No abnormal mass Lungs: Round atelectasis at the left lung base . Pleura: Chronic appearing small left pleural effusion. Cher/Mediastinum: No lymphadenopathy. Small hiatal hernia. Circumferentially thickened distal esophag us. Aorta/Pulmonary Arteries: Incidentally noted pulmonary emboli in the right lung with overall small cl ot burden. The emboli are segmental. Heart: Normal size. Abdomen/Pelvis: Liver: No acute abnormality or suspicious lesions. Biliary: Distended gallbladder. Nonspecific mild extrahepatic biliary duct dilatation. Stomach: No significant focal abnormality. Duodenum: No significant focal abnormality. Pancreas: Atrophic pancreas. There is some calcifications in the region of the pancreatic head. This could be from sequela of chronic pancreatitis. Spleen: No significant abnormality. Adrenal: No suspicious lesions. Kidney/ureter: No hydronephrosis. Right lower pole renal cyst. Other too small to characterize renal lesions are likely benign. Retroperitoneum: No retroperitoneal adenopathy. Vascular: No aneurysm. Bowel: Locally aggressive rectal adenocarcinoma with at least partial obstruction resulting in a dist al bowel obstruction. The mass extends into the sacrum and coccyx. It measures approximately 9.1 x 8. 1 cm.. Markedly dilated colon with a large volume of both formed and liquid stool. Peritoneum: Single enlarged perirectal lymph node measuring 6 millimeters . Mild inguinal lymphadenop athy . Bladder: Grossly unremarkable. Reproductive: No adnexal masses. Bones: No acute fracture. The right L2 compression fracture . Other: n/a IMPRESSION: 1. Locally aggressive rectal neoplasm with at least partial distal colonic obstruction a nd osseous invasion of the lower sacrum/coccyx. Single prominent perirectal lymph node . No evidence of distant metastatic disease. 2. Incidentally noted right-sided pulmonary emboli with small clot burden. Discussed with Dr. Ram by Dr. Lopez at 1705 on 01/10/23
[2023-01-10] MEDS: CLARITHROMYCIN 500 MG TABLET PO SCH ×2 (17:24→20:58)
[2023-01-10] MEDS: ENOXAPARIN 80 MG/0.8 ML SQ SCH (20:59)
[2023-01-10] MEDS: AMITRIPTYLINE 50 MG TAB PO SCH (21:00)
[2023-01-11 05:14] LABS: Absolute Lymphocytes (CBC) 1.6 K/uL (0.7-4.9); Hematocrit 26.4 % (39.6-49.0); Lymphocytes % 20.5 % (15.3-44.8); MCV 71.9 fL (80-100); MPV 6.7 fL (7.6-11.3); RBC Red Blood Cell Count 3.68 M/uL (4.33-5.43)
[2023-01-11 05:37] LABS: AST/SGOT 8 U/L (15-37); Albumin 2.2 g/dL (3.4-5.0); Alkaline Phosphatase 86 U/L (45-117); BUN Blood Urea Nitrogen 11 mg/dL (7-18); Bicarbonate 33 mEq/L (21-32); Bilirubin Total 0.4 mg/dL (0.2-1.0); Carcinoembryonic Antigen 109.2 ng/mL (0-5.0); Glomerular Filtration Rate 93 ml/min (=/>90); Glucose Level 85 mg/dL (74-106); Potassium 4.3 mEq/L (3.5-5.1); Protein, Total 5.4 g/dL (6.4-8.2); Sodium Level 137 mEq/L (136-145)
[2023-01-11 05:43] LABS: ALT/SGPT < 10 U/L (16-61)
[2023-01-11] MEDS: MORPHINE *EXTENDED RELEASE* 15 MG TAB PO SCH (06:44)
[2023-01-11] MEDS: methocarbamoL 750 MG TAB PO SCH (06:45)
[2023-01-11] MEDS: PANTOPRAZOLE 40MG TABLET PO SCH (07:44)
[2023-01-11] MEDS: AMOX/K CLAV 875 MG TAB PO SCH (07:44)
[2023-01-11] MEDS: CLARITHROMYCIN 500 MG TABLET PO SCH (07:45)
[2023-01-11] MEDS: ENOXAPARIN 80 MG/0.8 ML SQ SCH (07:45)
[2023-01-11 11:57] VITALS: O2SAT 94
[2023-01-11 12:13] VITALS: BP 116/56; TEMP 98
[2023-01-11 13:44] LABS: Hematocrit 25.9 % (39.6-49.0)
--- NOTE | 2023-01-11 13:57 | P.DS ---
Admission Date: 01/07/23 Discharge Date: 01/11/23 Disposition: TRANSFER TO [facility] Comment: [facility] Discharge Condition: GOOD Reason for Admission: Dizziness and Lightheadedness Consultations: 1. Gastroenterology Procedures: - 01/09/2023 - Esophagogastroduodenoscopy - 01/10/2023 - Colonoscopy Hospital Course: DIAGNOSES: # Partial Distal Bowel Obstruction secondary to Rectal Mass # Chronic Blood Loss Anemia suspect secondary to Rectal Cancer # Right-Sided Segmental Pulmonary Embolism with Small Clot [place] # Helicobacter Pylori Gastritis/Duodenitis # Chronic Back Pain s/p Pain Pump # History of Lymphoma HOSPITAL COURSE: Mr. Carlo Neri is a pleasant 72-year-old male with a past medical history significant for chronic back pain s/p pain pump, and history of lymphoma in remission who was admitted to the [facility] on 01/07/2023 for lightheadedness and dizziness. He was admitted to the Medicine service. Upon further evaluation, he was found to have a hemoglobin of 6.9. He was given 1 unit of PRBCs and gastroenterology was consulted. He was evaluated by Dr. Del Rosario, and underwent an esophagogastroduodenoscopy on 01/09/2023. This study revealed, "a Small bowel, biopsy: - Duodenal mucosa with features consistent with peptic duodenitis B Stomach, biopsy: - Antral and oxyntic mucosa with focally active, chronic gastritis, Helicobacter related - Rare helicobacter organisms are identified on Diff Quick special stain - Negative for intestinal metaplasia and dysplasia." A colonoscopy was attempted yesterday, and upon insertion of the colonoscope, a large rectal mass was observed. A CT chest/abdomen/pelvis was obtained which revealed, "1. Locally aggressive rectal neoplasm with at least partial distal colonic obstruction and osseous invasion of the lower sacrum/coccyx. Single prominent perirectal lymph node. No evidence of distant metastatic disease. 2. Incidentally noted right-sided pulmonary emboli with small clot burden." He was started on triple therapy for the Helicobacter Pylori and on enoxaparin for the incidentally noted pulmonary embolism. It was recommended that he be transferred to the [facility] for colorectal surgery evaluation. A doc-to-doc was completed with Dr. Shepherd ([facility] Colorectal Surgery), who has generously accepted to consult on his case. A doc-to-doc was completed with Dr. Evans ([facility] Hospitalist), who has generously accepted him for transfer. On 01/11/2023, he was seen on rounds and deemed medically stable for transfer. He was given the opportunity to ask questions and reported no further questions. Furthermore, all questions were answered to the best of my ability. A copy of this discharge summary will be sent to the above providers to facilitate continuity of care. Today, I personally spent 35 minutes on his case, of which greater than 50% of the time was spent in patient education, counseling, and coordination of care as described above. - Physical Exam General: Alert, In no apparent distress, Oriented x3 HEENT: Atraumatic, Mucous membr. moist/pink, Sclerae nonicteric Neck: JVD not distended Respiratory: Clear to auscultation bilaterally, Normal air movement Cardiovascular: Regular rate/rhythm, No murmurs, No edema Gastrointestinal: Normal bowel sounds, Soft, Non-distended, No tenderness Musculoskeletal: No clubbing Integumentary: No rashes Neurological: Normal speech, Normal affect Vital Signs/Physical Exam: Temp Pulse Resp BP Pulse Ox 98.0 F 86 16 116/56 L 93 01/11/23 12:00 01/11/23 12:00 01/11/23 12:00 01/11/23 12:00 01/11/23 12:00 Laboratory Data at Discharge: WBC 8.00 thou/uL (4.3-10.9) 01/11/23 04:03 Hgb 8.4 g/dL (13.6-17.9) L D 01/11/23 04:03 Hct 26.4 % (39.6-49.0) L 01/11/23 04:03 Plt Count 348 thou/uL (152-406) 01/11/23 04:03 Sodium 137 mEq/L (136-145) 01/11/23 04:03 Potassium 4.3 mEq/L (3.5-5.1) 01/11/23 04:03 BUN 11 mg/dL (7-18) 01/11/23 04:03 Creatinine 0.86 mg/dL (0.70-1.30) 01/11/23 04:03 Glucose 85 mg/dL (74-106) 01/11/23 04:03 Phosphorus 2.8 mg/dL (2.5-4.9) 01/08/23 05:59 Magnesium 2.2 mg/dL (1.6-2.4) 01/08/23 05:59 Total Bilirubin 0.4 mg/dL (0.2-1.0) 01/11/23 04:03 AST 8 U/L (15-37) L 01/11/23 04:03 ALT < 10 U/L (16-61) L 01/11/23 04:03 Alkaline Phosphatase 86 U/L (45-117) 01/11/23 04:03 Home Medications: Amitriptyline HCl 150 mg PO BEDTIME 06/25/17 Morphine Sulfate [Ms Contin] 30 mg PO BID 06/25/17 Pain Pump 1 appl IV CONT 06/25/17 methocarbamoL [Robaxin*] 750 mg PO BID 06/25/17 Amox/Clavulanate [Augmentin 875-125 Tab*] 875 mg PO BID tab 01/11/23 Clarithromycin [Biaxin] 500 mg PO BID 01/11/23 Enoxaparin Sodium [Lovenox 80 MG INJ*] 80 mg SQ Q12HR syr 01/11/23 Ondansetron [Zofran*] 4 mg IV Q6HP PRN vial 01/11/23 Pantoprazole [Protonix Tab*] 40 mg PO BIDAC tab 01/11/23 Physician Discharge Instructions: - Continue care at [facility] Diet: NPO Activity: Fall precautions Followup: Alberto Del Rosario MD [ASSOCIATE-ACTIVE - CAN ADMIT] - GINA ROSENBERG [OUTSIDE PHYSICIAN] - Time spent managing pt's care (in minutes): 35
== END 2023-01-11 15:25 | disposition short-term general hospital (02) | DRG 374 ==
LOC: ER 09:55 → ERHOLD 14:39 → 4TH 16:14
PROVIDERS: ADMIT Internal Medicine; ATTEND Internal Medicine
PROC: 30233N1 Transfusion of Nonautologous Red Blood Cells into Peripheral Vein, Percutaneous Approach (ICD-10-PCS; 2023-01-08)
PROC: 0DB68ZX Excision of Stomach, Via Natural or Artificial Opening Endoscopic, Diagnostic (ICD-10-PCS; 2023-01-10)
PROC: 0DB78ZX Excision of Stomach, Pylorus, Via Natural or Artificial Opening Endoscopic, Diagnostic (ICD-10-PCS; 2023-01-10)
PROC: 0DBQ8ZX Excision of Anus, Via Natural or Artificial Opening Endoscopic, Diagnostic (ICD-10-PCS; principal; 2023-01-10 13:45)
DX: C20 Malignant neoplasm of rectum (principal); I26.99 Other pulmonary embolism without acute cor pulmonale; K40.30 Unilateral inguinal hernia, with obstruction, without gangrene, not specified as recurrent; G89.29 Other chronic pain; M54.9 Dorsalgia, unspecified; N18.2 Chronic kidney disease, stage 2 (mild); D63.1 Anemia in chronic kidney disease; K29.40 Chronic atrophic gastritis without bleeding; K29.80 Duodenitis without bleeding; B96.81 Helicobacter pylori [H. pylori] as the cause of diseases classified elsewhere; R60.9 Edema, unspecified; Z96.1 Presence of intraocular lens; Z88.5 Allergy status to narcotic agent; Z90.49 Acquired absence of other specified parts of digestive tract; Z85.72 Personal history of non-Hodgkin lymphomas; Z28.310 Unvaccinated for COVID-19; Z79.899 Other long term (current) drug therapy; Z87.891 Personal history of nicotine dependence
CPT/HCPCS: 36415; 71045; 71260; 74177; 80048; 80053; 80076; 82378; 83735; 83880; 84100; 84484; 85014; 85018; 85025; 86850; 86900; 86901; 86920; 88305; 88312; 93005; 93306; 99285; C9113; J2001; J2704; J2765; J7050; J7120; P9016; Q9967

== ENCOUNTER 2023-02-26 11:00 | Inpatient (IN) | payer OTHER ==
--- OUTSIDE RECORDS SUMMARY | 2023-02-26 11:14 | XMS REPORT | Continuity of Care Document ---
:1950 Author Organization [facility] t Address [address] [place] [address] [place] [id number] Care Team Providers Name Role Phone JATINDER SYED Attending Clinician Unavailable ABRAHAM CONDE Attending Clinician Unavailable VLADIMIR TOLENTINO Attending Clinician Unavailable Victor Manuel PEREA, Ehsan Attending Clinician Abraham Conde MD Attending Clinician [phone] Daphne Florentino CRNA Attending Clinician Doctor Unassigned, [place] Attending Clinician Unavailable Only, Adc Test Attending Clinician Unavailable Jatinder Syed MD Attending Clinician Pob, Adc Lab Main Attending Clinician Unavailable JATINDER SYED Admitting Clinician Unavailable HAWA RUGGIERO Admitting Clinician Unavailable Payers Payer Name Policy Type Policy Number Effective Date Expiration Date Adriel robertson MEDICARE PART A [id number] 2002 \\T\\ B 00:00:00 [employer] INDEMNITY [id number] 2013 00:00:00 MEDICARE PLAN HMO [id number] 2022 2023 OPEN ACCESS - 00:00:00 00:00:00 [employer] Problems Condition Condition Condition Status Onset Resolution Last Treating Co mments Source Name Details Category Date Date Treatment Clinician Date Rectal Rectal Disease [facility] Allergies, Adverse Reactions, Alerts Allergy Allergy Status Severity Reaction(s) Onset Inactive Treating Comm ents Source Name Type Date Date Clinician HYDROMOR Allergy Active Other [facility] Hydromor Propensi Active Other (See psychosis [facility] phone ty to Comments) 01-11 [facility] adverse 00:00: Medical reaction 00 [facility] Hydromor Drug Active Hallucinatio Patient U nivers phone Allergy ns 05-20 states ity of 00:00: that it 00 makes him Medical "nuts" Branch HYDROMOR DRUG Active Med Anxiety Univers PHONE INGREDI 05-20 ity of 00:00: [place] 00 Medical Branch NO KNOWN Allergy Active [facility] ALLERGIE S NO KNOWN Drug Active Univers ALLERGIE Class ity of S [facility] Family History Family Member Diagnosis Comments Start Date Stop Date Source Natural mother Dementia [facility] Social History Social Habit Start Date Stop Date Quantity Comments Source History of tobacco Cigarette Smoker [facility] use [facility] Exposure to 2023-01-06 2023-01-[address] [facility] SARS-CoV-2 (event) 00:00:00 10:33:00 [facility] Alcohol intake 2023-01-16 2023-01-16 Ex-drinker [facility] 00:00:00 00:00:00 (finding) [facility] Cigarettes smoked 2023-01-11 2023-01-[address] [facility] current (pack per 00:00:00 00:00:00 Medical Center day) - Reported Cigarette 2023-01-11 2023-01-[address] [facility] pack-years 00:00:00 00:00:00 [facility] Tobacco use and 2023-01-11 2023-01-11 [address]ok[address] [facility] exposure 00:00:00 00:00:00 non-user [facility] Alcohol Comment 2023-01-11 2023-01-11 has a sip of [facility] 00:00:00 00:00:[address] month Sex Assigned At [address] [facility] 00:00:00 00:00:00 [facility] Center Smoking Status Start Date Stop Date Source Unknown if ever smoked [facility] Ex-smoker 2023-01-11 00:00:00 2023-01-11 00:00:00 [facility] Never smoker [facility] Medications Ordered Filled Start Stop Current Ordering Indication Dosage Frequency Signature Comments Components Source Medication Medication Date Date Medication? Clinician (SIG) Name Name morphine 0 Yes 30mg Q.5D Take [address] (MS CONTIN) 4-14 tablet (30 Corrina kes 30 MG 12 hr 00:00: mg total) M edical tablet 00 by mouth Center in the morning and 1 tablet (30 mg total) before bedtime. Max Daily Amount: 60 mg. amitriptyli 2022-0 Yes 150mg QD Take [address] (ELAVIL) 3-27 tablet [facility] 150 MG 00:00: (150 mg Medical tablet 00 total) by Center mouth nightly. methocarbam 2022-0 Yes 750mg Q.5D Take [address] oL 3-27 tablet [facility] (ROBAXIN) 00:00: (750 mg Medic al 750 MG 00 total) by Center tablet mouth in the morning and 1 tablet (750 mg total) before bedtime. morphine ER 2019-0 Yes 30mg Take 30 mg Univers 30 mg 12 hr 9-21 by mouth ity of tablet 13:48: every 12 [place] 37 (twelve) Medical hours. Branch methocarbam 2020-0 Yes 750mg Take 750 U nivers oL 9-21 mg by ity of (ROBAXIN-75 13:48: mouth 2 Bill as 0) 750 mg 37 (two) Medical tablet times [place] daily. amitriptyli 2020-0 Yes 150mg Take 150 U nivers ne 150 mg 9-21 mg by ity of tablet 13:48: mouth at [place] 37 bedtime. Medical Branch morphine ER 2020-0 Yes 30mg Take 30 mg Univers 30 mg 12 hr 9-18 by mouth ity of tablet 20:52: every 12 [place] 05 (twelve) Medical hours. Branch methocarbam 2020-0 Yes 750mg Take 750 U nivers oL 9-18 mg by ity of (ROBAXIN-75 20:52: mouth 2 Bill as 0) 750 mg 05 (two) Medical tablet times [place] daily. amitriptyli 2020-0 Yes 150mg Take 150 U nivers ne 150 mg 9-18 mg by ity of tablet 20:52: mouth at [place] 05 bedtime. Medical Branch Vital Signs Vital Name Observation Time Observation Value Comments Source HEIGHT 2023-01-11 19:10:00 190.5 cm WEIGHT 2023-01-11 19:10:00 76.204 kg HEIGHT 2023-01-11 19:10:00 190.5 cm WEIGHT 2023-01-11 19:10:00 76.204 kg Systolic blood 2023-01-17 07:50:00 136 mm[Hg] [facility] Diastolic blood 2023-01-17 07:50:00 59 mm[Hg] [facility] Body temperature 2023-01-17 07:50:00 37 Marlena [facility] Heart rate 2023-01-17 07:41:00 92 /min [facility] Respiratory rate 2023-01-17 07:41:00 21 /min [facility] Oxygen saturation in 2023-01-17 07:41:00 95 /min [facility] Arterial blood by Medical Ce nter Pulse oximetry Body height 2023-01-11 19:10:00 190.5 cm [facility] Body weight 2023-01-11 19:10:00 76.204 kg [facility] BMI 2023-01-11 19:10:00 21.00 kg/m2 [facility] Procedures Procedure Date / Time Performing Clinician Source Performed PREPARE LEUKO-REDUCED RBC 2023-01-17 06:46:00 Elmer López CH, I [facility] CBC (HEMOGRAM ONLY) 2023-01-17 05:37:00 Elmer López [facility] PROTHROMBIN TIME/INR 2023-01-17 05:37:00 Elmer López [facility] FIBRINOGEN 2023-01-17 05:37:00 Elmer López [facility] APTT 2023-01-17 05:37:00 Ravi Silva [facility] CBC (HEMOGRAM ONLY) 2023-01-17 03:50:00 [facility] BASIC METABOLIC PANEL 2023-01-17 03:50:00 [facility] HEPATIC FUNCTION PANEL 2023-01-17 03:50:00 [facility] MAGNESIUM 2023-01-17 03:50:00 [facility] APTT 2023-01-16 23:34:00 Ravi Sliva [facility] LACTIC ACID, VENOUS 2023-01-16 21:39:00 [facility] CALCIUM, IONIZED 2023-01-16 21:39:00 [facility] SARS-COV2/RT-PCR (HS & 2023-01-16 21:39:00 Patsy Hurtado [facility] CHEST FOR PULMONARY 2023-01-16 19:00:00 Ravi Silva [facility] EMBOLUS [facility] B-TYPE NATRIURETIC FACTOR 2023-01-16 18:05:00 Betito Zepeda [facility] (BNP) [facility] HIGH SENSITIVITY TROPONIN 2023-01-16 18:05:00 Betito Zepeda [facility] XR CHEST 1 VIEW PORTABLE / 2023-01-16 17:31:00 Ravi Silva [facility] BEDSIDE [facility] BLOOD GAS, ARTERIAL 2023-01-16 17:08:00 Ravi Silva [facility] APTT 2023-01-16 16:54:00 Ravi Silva [facility] REPORT OF PROCEDURE - 2023-01-16 12:10:02 Abraham Conde [facility] ENDOSCOPY URL [facility] COLONOSCOPY, WITH 2023-01-16 11:17:00 [facility] COLONOSCOPY, WITH BIOPSY 2023-01-16 11:17:00 [facility] BASIC METABOLIC PANEL 2023-01-16 03:23:00 [facility] HEPATIC FUNCTION PANEL 2023-01-16 03:23:00 [facility] MAGNESIUM 2023-01-16 03:23:00 [facility] CBC (HEMOGRAM ONLY) 2023-01-16 03:22:00 [facility] TYPE AND SCREEN, AUTOMATED 2023-01-16 03:22:00 [facility] XR ABDOMEN/KUB 1 VIEW 2023-01-15 22:13:00 [facility] XR ABDOMEN/KUB 1 VIEW 2023-01-15 20:56:00 [facility] XR ABDOMEN/KUB 1 VIEW 2023-01-15 14:26:00 [facility] CBC (HEMOGRAM ONLY) 2023-01-15 04:43:00 [facility] BASIC METABOLIC PANEL 2023-01-15 04:43:00 [facility] HEPATIC FUNCTION PANEL 2023-01-15 04:43:00 [facility] MAGNESIUM 2023-01-15 04:43:00 [facility] PHOSPHORUS 2023-01-15 04:43:00 [facility] PT/APTT 2023-01-15 04:43:00 [facility] CBC (HEMOGRAM ONLY) 2023-01-14 05:11:00 [facility] BASIC METABOLIC PANEL 2023-01-14 05:11:00 [facility] CBC (HEMOGRAM ONLY) 2023-01-13 04:11:00 [facility] BASIC METABOLIC PANEL 2023-01-13 04:11:00 [facility] IRON, TIBC, % SAT. 2023-01-12 06:01:[address] [facility] (WITHOUT FERRITIN) [facility] CARCINOEMBRYONIC ANTIGEN 2023-01-12 06:01:00 Marcela [facility] (CEA) [facility] PREALBUMIN 2023-01-12 06:01:00 Nhung Marcela [facility] BASIC METABOLIC PANEL 2023-01-12 06:01:00 [facility] S t [facility] MAGNESIUM 2023-01-12 06:01:00 [facility] CBC (HEMOGRAM ONLY) 2023-01-12 06:01:00 [facility] FERRITIN 2023-01-12 06:01:00 [facility] CHEST 1 VIEW PORTABLE / 2023-01-11 20:36:00 Matthew Antonio [facility] CBC W/PLT COUNT & AUTO 2023-01-11 17:21:00 [facility] DIFFERENTIAL [facility] CBC W/PLT COUNT & AUTO 2023-01-11 17:21:00 [facility] DIFFERENTIAL [facility] COMPREHENSIVE METABOLIC 2023-01-11 17:21:00 [facility] PANEL [facility] MAGNESIUM 2023-01-11 17:21:00 [facility] PROTHROMBIN TIME/INR 2023-01-11 17:21:00 [facility] DAY SURGERY - ADC 2020-05-23 05:01:00 Doctor Unassigned, No Univ [facility] CBC WITH DIFF 2020-05-19 15:02:00 Jatinder Syed [facility] PROTHROMBIN TIME / INR 2020-05-19 15:02:00 [facility]RMPL[facility] 2020-05-19 15:02:00 Jatinder Syed [facility] [place] [facility] ADC OR CLC ONLY - PLATELET 2020-05-19 15:02:00 Jatinder Seyd [facility] FUNCTION TEST Medical Branch ASSIGNMENT OF BENEFITS 2020-05-19 14:45:32 Doctor Unassigned, No [facility] Name [facility] Plan of Care Planned Activity Planned Date Details Comments Source Future Scheduled 2033-01-16 Screening for malignant [facility] Test 00:00:00 neoplasm of colon Medical Ce nter (procedure) [code = 011911200] Future Scheduled 2033-01-16 Screening for malignant [facility] Test 00:00:00 neoplasm of colon Medical Ce nter (procedure) [code = 901731890] Future Scheduled 2024-01-[address] [facility] Test 00:00:00 Counseling and Medical Cente r Screening (12+) [code = Tobacco Cessation Counseling and Screening (12+)] Future Scheduled 2023-05-[address] [facility] Test 00:00:00 (Season Ended) [code = Medic al Center INFLUENZA VACCINE (Season Ended)] Future Scheduled 2022-09-[address] [facility] Test 00:00:00 (12+) [code = Medical Center DEPRESSION SCREENING (12+)] Future Scheduled 2022-09-02 FALLS RISK SCREENING [facility] Test 00:00:00 [code = FALLS RISK Medical C enter SCREENING] Future Scheduled 2022-09-02 Medicare IPPE (WELCOME [facility] 00:00:00 TO MEDICARE) [code = Medical Center Medicare IPPE (WELCOME TO MEDICARE)] Future Scheduled 2016-02-[address] [facility] Test 00:00:00 aneurysm screening Medical C enter (procedure) [code = 005198967] Future Scheduled 2016-02-18 PNEUMOCOCCAL 65+ YRS ([address] [facility] Test 00:00:00 - PCV) [code = Medical Cente r PNEUMOCOCCAL 65+ YRS (1 - PCV)] Future Scheduled 2001 SHINGLES VACCINES ([address] [facility] Test 00:00:00 2) [code = SHINGLES Medical Center VACCINES (1 of 2)] Future Scheduled 1970 DTAP/TDAP/TD VACCINES [facility] Test 00:00:00 (1 - Tdap) [code = Medical C enter DTAP/TDAP/TD VACCINES (1 - Tdap)] Future Scheduled 1969 HEPATITIS C SCREENING [facility] Test 00:00:00 [code = HEPATITIS C Medical Center SCREENING] Future Scheduled 1950 COVID-19 VACCINE (#1) [facility] Test 00:00:00 [code = COVID-[address] VACCINE (#1)] Future Scheduled 1950 CT Colonography (combo) [facility] Test 00:00:00 [code = CT Colonography [facility] (combo)] Future Scheduled 1950 Screening for malignant [facility] Test 00:00:00 neoplasm of colon Medical Ce nter (procedure) [code = 895093727] Future Scheduled 1950 Screening for malignant [facility] Test 00:00:00 neoplasm of colon Medical Ce nter (procedure) [code = 806340146] Future Scheduled 1950 Sigmoidoscopy [code = [facility] Test 00:00:00 Sigmoidoscopy] Medical Luh saleem Encounters Start End Encounter Admission Attending Care Care Encounter Source Date/Time Date/Time Type Type Clinicians Facility Department ID 2021-06-30 Outpatient R KUNAL WAJEREMIAS KIRKLAND [id number] Univers 18:21:58 [facility] 2023-01-16 2023-01-23 Outpatient [facility] [id number] [facility] 07:54:36 09:48:08 ABRAHAM [place] of Medicin e 2023-01-11 2023-01-22 Inpatient UR RANDA VLADIMIR [facility] Surgery [id number] [facility] 16:19:00 18:31:00 2023-01-16 2023-01-16 Anesthesia Pathikonda [facility] [id number] [facility] 11:17:00 12:28:[address] [facility] 2023-01-16 2023-01-16 Surgery Elton [facility] [id number] 10:00:00 11:00:00 Abraham [facility] 2023-01-16 2023-01-16 Travel [facility] [id number] [facility]00 00[facility]00 [facility] 2023-01-15 2023-01-15 Anesthesia Daphne Florentino [facility] [id number] [facility] 12:27:39 12:27:39 Event [facility] 2020-05-23 2020-05-23 Orders Doctor GUILLEN [id number] Univers 00:00:00 00:00:00 Only Unassigned, BECKY [id number] ity of [place] [facility] 4.2.7.2.686 Bill as [id number] [address] 2020-05-20 2020-05-20 Laboratory Only, Adc Test [facility] 1.2.840. 114 [id number] Univers 15:56:50 16:11:50 Only Wendi Syedt Adriel Kyle 350.1.13.1 0 [place] 4[place]7.2.[place] [id number] [address] 2020-05-20 2020-05-20 Outpatient Anai SYED [facility] [id number] Univers 12:45:00 12:45:00 JATINDER ity [facility] 2020-05-19 2020-05-19 [employer] Sheri, Adc Lab Main [facility] 1.2.8 40.114 [id number] Univers 09:40:22 09:55:22 Visit Kunal, Jatinder Adriel Kyle [id number] 0 [place] 4[place]2.7.2.[place] [facility] [id number] [address] 2020-05-19 2020-05-19 Outpatient Anai SYED [facility] [id number] Univers 09:30:00 09:30:00 JATINDER ity [facility] 2020-05-19 2020-05-19 Orders Doctor GUILLEN [id number] Univers 00:00:00 00:00:00 Only Unassigned, BECKY 350.1.13.10 ity of [place] [facility] 4.2.7.2.686 Bill as [phone] [address] Results Test Description Test Time Test Comments Results Result Comments Source MISCELLANEOUS LAB ORDER 2023-02-05 14:44:33 Test Item Value Reference Range Interpretation Comme nts SCAN RESULT (test code = 8220488) See attachment BLOOD [id number] 01:00:55 Test Item Value Reference Range Interpretation Comments CULTURE (BEAKER) (test No growth in 5 days code = 1095) BLOOD [id number] 01:00:54 Test Item Value Reference Range Interpretation Comments CULTURE (BEAKER) (test No growth in 5 days code = 1095) BASIC METABOLIC [id number] 06:10:55 Test Item Value Reference Range Interpretation Comments SODIUM (BEAKER) 134 meq/L 136-145 L (test code = 381) POTASSIUM 4.1 meq/L 3.5-5.1 (BEAKER) (test code = 379) CHLORIDE (BEAKER) 102 meq/L 98-107 (test code = 382) CO2 (BEAKER) 24 meq/L 22-29 (test code = 355) BLOOD UREA 8 mg/dL 7-21 NITROGEN (BEAKER) (test code = 354) CREATININE 0.77 mg/dL 0.57-1.25 (BEAKER) (test code = 358) GLUCOSE RANDOM 92 mg/dL 70-105 (BEAKER) (test code = 652) CALCIUM (BEAKER) 8.0 mg/dL 8.4-10.2 L (test code = 697) EGFR (BEAKER) 96 Interpretatio n of eGFR (test code = mL/min/1.73 values Stage De scription 1092) sq m Result G1 Kiana l or high >=90 G2 Mildly decreased 60-89 G3a Mildl y to moderately 45-5 9 G3b Moderately to s everely 30-44 G4 Severl y decreased 15-29 G5 Kidney failure <15Reported eGF R is based on the CKD-EPI 2021 equation that d oes not use a race coefficientEsti mated GFR is not as accur ate as Creatinine Rosa rain in predicting glom erular filtration rate . Estimated GFR is not appl icable for dialysis patien ts Director Of Ancillary Services ID - [id number] 06:10:55 Test Item Value Reference Range Interpretation Comments MAGNESIUM (BEAKER) (test code = 1.8 mg/dL 1.6-2.6 627) Director Of Ancillary Services ID - ADMINHEPATIC FUNCTION [id number] 06:10:55 Test Item Value Reference Range Interpretation Comments TOTAL PROTEIN (BEAKER) (test code = 5.3 gm/dL 6.0-8.3 L 770) ALBUMIN (BEAKER) (test code = 1145) 2.3 g/dL 3.5-5.0 L BILIRUBIN TOTAL (BEAKER) (test code 0.4 mg/dL 0.2-1.2 = 377) BILIRUBIN DIRECT (BEAKER) (test 0.2 mg/dL 0.1-0.5 code = 706) ALKALINE PHOSPHATASE (BEAKER) (test 86 U/L 40-150 code = 346) AST (SGOT) (BEAKER) (test code = 20 U/L 5-34 353) ALT (SGPT) (BEAKER) (test code = 15 U/L 6-55 347) Director Of Ancillary Services ID - [id number] (HEMOGRAM ONLY)2023-01-22 05:34:34 Test Item Value Reference Range Interpretation Comments WHITE BLOOD CELL COUNT (BEAKER) 6.9 K/ L 3.5-10.5 (test code = 775) RED BLOOD CELL COUNT (BEAKER) 3.25 M/ L 4.63-6.08 L (test code = 761) HEMOGLOBIN (BEAKER) (test code = 7.7 GM/DL 13.7-17.5 L 410) HEMATOCRIT (BEAKER) (test code = 24.9 % 40.1-51.0 L 411) MEAN CORPUSCULAR VOLUME (BEAKER) 77 fL 79-92 L (test code = 753) MEAN CORPUSCULAR HEMOGLOBIN 23.7 pg 25.7-32.2 L (BEAKER) (test code = 751) MEAN CORPUSCULAR HEMOGLOBIN CONC 30.9 GM/DL 32.3-36.5 L (BEAKER) (test code = 752) RED CELL DISTRIBUTION WIDTH 21.2 % 11.6-14.4 H (BEAKER) (test code = 412) PLATELET COUNT (BEAKER) (test 309 K/CU MM 150-450 code = 756) MEAN PLATELET VOLUME (BEAKER) 8.7 fL 9.4-12.4 L (test code = 754) NUCLEATED RED BLOOD CELLS 0 /100 WBC 0-0 (BEAKER) (test code = 413) RAD, ABDOMEN/KUB, 1 VIEW [id number] 17:17:00Reason for exam:->r/o bowel obstructionShould this be performed at the bedside?->Yes [facility] 1950 Sex: MFINAL REPORT RAD, ABDOMEN/KUB, 1 VIEW AP TECHNIQUE: Supine radiograph(s) of the abdomen and pelvis. HISTORY: r/o bowel obstruction COMPARISON: 01/15/2023 abdominal radiograph IMPRESSION:Lines and tubes: None Bowel gas pattern: Gas- filled mildly dilated loops of large and small bowel, grossly similar to 01/15/2023, ileus versus distal large bowel obstruction. There is a moderate amount of stool in the right half the colon Other: Pain pump implanted in the right lower flank. Signed: Everett Darden [facility] Verified Date/Time: 01/21/2023 17:17:25 UE [id number] 14:36:56Surgical Pathology Report Case: [id number] Authorizing Provider: Abraham Conde MD Collected: 01/16/2023 11:43 AM Ordering Location: [address] Received: 01/16/2023 01:43 PM Service Pathologist: Mario Curtis MD Specimens: A) - Polyp, Colon - Cecum, via cold snare B) - Rectal, rectal mass biopsy Part B: Immunohistochemistry (IHC) Testing for Mismatch Repair (MMR) Proteins MLH1: Punctate nuclear expression (interpreted as loss of nuclear expression)PMS2: Loss of nuclear expressionMSH2: Intact nuclear expressionMSH6: Intact nuclear expression Background nonneoplastic tissue/internal control with intact nuclear expression IHC Interpretation: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 Reference: Punctate MLH1 mismatch repair immunostaining in colorectal cancer. Histopathology 2019, 74, [phone] Dr. Carrillo concurs with the above diagnosis.Addendum electronically signed by Mario Curtis MD on 01/21/2023 at 2:36 PMA. CECUM, POLYP, COLD SNARE - TUBULAR ADENOMA.B. RECTUM, MASS, BIOPSY - INVASIVE MODERATELY DIFFERENTIATED ADENOCARCINOMA. Signing Pathologist Direct Phone Line: [phone] signed by Mario Curtis MD on 01/17/2023 at 9:39 AMMismatch repair protein status will be reported in an addendum.Results communicated toDr. Conde via secure text message on 01/17/2023 at 9:37 AM.[id number] x 2, 74900, [phone] x 3AnemiaA. Polyp, Colon - CecumReceived in formalin labeled with the patient's name, medical record number and "cecum polyp" are multiple webb-yellow to webb-brown polypoid fragments ranging in size from 0.1-0 1.3 cm, wh ich are submitted in toto in A1.B. RectalReceived in formalin labeled with the patient's name, medical record number and "rectal" are multiple webb-white to webb-red soft tissue fragments ranging in sizefrom 0.1-0.5 cm, which are submitted in toto in B1.Alyx HernadezPerformed.The interpretation of this case included the use of immunohistochemistry or special stains.Control Slides Examined: In-house known positive controls were evaluated along with the test tissue. These control slides run alongside ofthe patients sample show appropriate staining. Internal positive and negative controls when available are evaluated Immunohistochemistry technical testing was performed at [facility] where it was developed and its performance characteristics were determined.It has not been cleared or approved by the U.S. Food and Drug Administration. The FDA has determinedthat such clearance or approval is not necessary. The test is used for clinical purposes. It should not be regarded as investigational or for research. This laboratory is certified under the Clinical Laboratory Improvement Amendments of 1988 (CLIA-88) as qualified to perform high complexity clinical laboratory testing.BASIC METABOLIC [id number] 06:51:26 Test Item Value Reference Range Interpretation Comments SODIUM (BEAKER) 135 meq/L 136-145 L (test code = 381) POTASSIUM 3.8 meq/L 3.5-5.1 (BEAKER) (test code = 379) CHLORIDE (BEAKER) 103 meq/L 98-107 (test code = 382) CO2 (BEAKER) 23 meq/L 22-29 (test code = 355) BLOOD UREA 7 mg/dL 7-21 NITROGEN (BEAKER) (test code = 354) CREATININE 0.73 mg/dL 0.57-1.25 (BEAKER) (test code = 358) GLUCOSE RANDOM 96 mg/dL 70-105 (BEAKER) (test code = 652) CALCIUM (BEAKER) 7.9 mg/dL 8.4-10.2 L (test code = 697) EGFR (BEAKER) 97 Interpretatio n of eGFR (test code = mL/min/1.73 values Stage De scription 1092) sq m Result G1 Kiana l or high >=90 G2 Mildly decreased 60-89 G3a Mildl y to moderately 45-5 9 G3b Moderately to s everely 30-44 G4 Sever ly decreased 15-29 G5 Kidney failure <15Repo rted eGFR is based on the CKD-EPI 2021 equation t hat does not use a race coefficientEsti mated GFR is not as accur ate as Creatinine Rosa rain in predicting glom erular filtration rate . Estimated GFR is not appl icable for dialysis patien ts Director Of Ancillary Services ID - [id number] 06:41:53 Test Item Value Reference Range Interpretation Comments MAGNESIUM (BEAKER) (test code = 1.8 mg/dL 1.6-2.6 627) Director Of Ancillary Services ID - MMHEPATIC FUNCTION [id number] 06:41:53 Test Item Value Reference Range Interpretation Comments TOTAL PROTEIN (BEAKER) (test code = 4.8 gm/dL 6.0-8.3 L 770) ALBUMIN (BEAKER) (test code = 1145) 2.2 g/dL 3.5-5.0 L BILIRUBIN TOTAL (BEAKER) (test code 0.3 mg/dL 0.2-1.2 = 377) BILIRUBIN DIRECT (BEAKER) (test 0.2 mg/dL 0.1-0.5 code = 706) ALKALINE PHOSPHATASE (BEAKER) (test 90 U/L 40-150 code = 346) AST (SGOT) (BEAKER) (test code = 33 U/L 5-34 353) ALT (SGPT) (BEAKER) (test code = 16 U/L 6-55 347) Director Of Ancillary Services ID - [id number] 05:49:09 Test Item Value Reference Range Interpretation Comments PARTIAL THROMBOPLASTIN TIME 78.4 seconds 22.5-36.0 H (BEAKER) (test code = 760) CBC (HEMOGRAM ONLY)2023-01-21 04:49:08 Test Item Value Reference Range Interpretation Comments WHITE BLOOD CELL COUNT (BEAKER) 7.1 K/ L 3.5-10.5 (test code = 775) RED BLOOD CELL COUNT (BEAKER) 3.09 M/ L 4.63-6.08 L (test code = 761) HEMOGLOBIN (BEAKER) (test code = 7.4 GM/DL 13.7-17.5 L 410) HEMATOCRIT (BEAKER) (test code = 24.0 % 40.1-51.0 L 411) MEAN CORPUSCULAR VOLUME (BEAKER) 78 fL 79-92 L (test code = 753) MEAN CORPUSCULAR HEMOGLOBIN 23.9 pg 25.7-32.2 L (BEAKER) (test code = 751) MEAN CORPUSCULAR HEMOGLOBIN CONC 30.8 GM/DL 32.3-36.5 L (BEAKER) (test code = 752) RED CELL DISTRIBUTION WIDTH 21.2 % 11.6-14.4 H (BEAKER) (test code = 412) PLATELET COUNT (BEAKER) (test 283 K/CU MM 150-450 code = 756) MEAN PLATELET VOLUME (BEAKER) 8.9 fL 9.4-12.4 L (test code = 754) NUCLEATED RED BLOOD CELLS 0 /100 WBC 0-0 (BEAKER) (test code = 413) BASIC METABOLIC [id number] 06:02:45 Test Item Value Reference Range Interpretation Comments SODIUM (BEAKER) 134 meq/L 136-145 L (test code = 381) POTASSIUM 3.6 meq/L 3.5-5.1 (BEAKER) (test code = 379) CHLORIDE (BEAKER) 102 meq/L 98-107 (test code = 382) CO2 (BEAKER) 25 meq/L 22-29 (test code = 355) BLOOD UREA 7 mg/dL 7-21 NITROGEN (BEAKER) (test code = 354) CREATININE 0.76 mg/dL 0.57-1.25 (BEAKER) (test code = 358) GLUCOSE RANDOM 89 mg/dL 70-105 (BEAKER) (test code = 652) CALCIUM (BEAKER) 7.5 mg/dL 8.4-10.2 L (test code = 697) EGFR (BEAKER) 96 Interpretatio n of eGFR (test code = mL/min/1.73 values Stage De scription 1092) sq m Result G1 Kiana l or high >=90 G2 Mildly decreased 60-89 G3a Mildl y to moderately 45-5 9 G3b Moderately to s everely 30-44 G4 Severl y decreased 15-29 G5 Kidney failure <15Reported eGF R is based on the CKD-EPI 2020 equation that d oes not use a race coefficientEsti mated GFR is not as accur ate as Creatinine Rosa briseyda in predicting glom erular filtration rate . Estimated GFR is not appl icable for dialysis patien ts Director Of Ancillary Services ID - ADMINHEPATIC FUNCTION [id number] 06:02:09 Test Item Value Reference Range Interpretation Comments TOTAL PROTEIN (BEAKER) (test code = 4.5 gm/dL 6.0-8.3 L 770) ALBUMIN (BEAKER) (test code = 1145) 2.1 g/dL 3.5-5.0 L BILIRUBIN TOTAL (BEAKER) (test code 0.4 mg/dL 0.2-1.2 = 377) BILIRUBIN DIRECT (BEAKER) (test 0.2 mg/dL 0.1-0.5 code = 706) ALKALINE PHOSPHATASE (BEAKER) (test 87 U/L 40-150 code = 346) AST (SGOT) (BEAKER) (test code = 12 U/L 5-34 353) ALT (SGPT) (BEAKER) (test code = 6 U/L 6-55 347) Director Of Ancillary Services ID - [id number] 06:02:08 Test Item Value Reference Range Interpretation Comments MAGNESIUM (BEAKER) (test code = 1.9 mg/dL 1.6-2.6 627) Director Of Ancillary Services ID - [id number] 05:51:20 Test Item Value Reference Range Interpretation Comments PARTIAL THROMBOPLASTIN TIME 86.1 seconds 22.5-36.0 H (BEAKER) (test code = 760) CBC (HEMOGRAM ONLY)2023-01-20 05:37:59 Test Item Value Reference Range Interpretation Comments WHITE BLOOD CELL COUNT (BEAKER) 9.2 K/ L 3.5-10.5 (test code = 775) RED BLOOD CELL COUNT (BEAKER) 3.08 M/ L 4.63-6.08 L (test code = 761) HEMOGLOBIN (BEAKER) (test code = 7.4 GM/DL 13.7-17.5 L 410) HEMATOCRIT (BEAKER) (test code = 23.8 % 40.1-51.0 L 411) MEAN CORPUSCULAR VOLUME (BEAKER) 77 fL 79-92 L (test code = 753) MEAN CORPUSCULAR HEMOGLOBIN 24.0 pg 25.7-32.2 L (BEAKER) (test code = 751) MEAN CORPUSCULAR HEMOGLOBIN CONC 31.1 GM/DL 32.3-36.5 L (BEAKER) (test code = 752) RED CELL DISTRIBUTION WIDTH 21.0 % 11.6-14.4 H (BEAKER) (test code = 412) PLATELET COUNT (BEAKER) (test 274 K/CU MM 150-450 code = 756) MEAN PLATELET VOLUME (BEAKER) 9.0 fL 9.4-12.4 L (test code = 754) NUCLEATED RED BLOOD CELLS 0 /100 WBC 0-0 (BEAKER) (test code = 413) [id number] 20:14:09 Test Item Value Reference Range Interpretation Comments PARTIAL THROMBOPLASTIN TIME 88.9 seconds 22.5-36.0 H (BEAKER) (test code = 760) [id number] 13:36:38 Test Item Value Reference Range Interpretation Comments PARTIAL THROMBOPLASTIN TIME 89.6 seconds 22.5-36.0 H (BEAKER) (test code = 760) BASIC METABOLIC [id number] 06:43:58 Test Item Value Reference Range Interpretation Comments SODIUM (BEAKER) 135 meq/L 136-145 L (test code = 381) POTASSIUM 3.7 meq/L 3.5-5.1 (BEAKER) (test code = 379) CHLORIDE (BEAKER) 104 meq/L 98-107 (test code = 382) CO2 (BEAKER) 26 meq/L 22-29 (test code = 355) BLOOD UREA 8 mg/dL 7-21 NITROGEN (BEAKER) (test code = 354) CREATININE 0.75 mg/dL 0.57-1.25 (BEAKER) (test code = 358) GLUCOSE RANDOM 92 mg/dL 70-105 (BEAKER) (test code = 652) CALCIUM (BEAKER) 7.5 mg/dL 8.4-10.2 L (test code = 697) EGFR (BEAKER) 97 Interpretatio n of eGFR (test code = mL/min/1.73 values Stage De scription 1092) sq m Result G1 Kiana l or high >=90 G2 Mildly decreased 60-89 G3a Mildl y to moderately 45-5 9 G3b Moderately to s everely 30-44 G4 Severl y decreased 15-29 G5 Kidney failure <15Reported eGF R is based on the CKD-EPI 2020 equation that d oes not use a race coefficientEsti mated GFR is not as accur ate as Creatinine Rosa rain in predicting glom erular filtration rate . Estimated GFR is not appl icable for dialysis patien ts Director Of Ancillary Services ID - [id number] 06:42:15 Test Item Value Reference Range Interpretation Comments MAGNESIUM (BEAKER) (test code = 1.7 mg/dL 1.6-2.6 627) Director Of Ancillary Services ID - MARCOHEPATIC FUNCTION [id number] 06:42:15 Test Item Value Reference Range Interpretation Comments TOTAL PROTEIN (BEAKER) (test code = 4.5 gm/dL 6.0-8.3 L 770) ALBUMIN (BEAKER) (test code = 1145) 2.2 g/dL 3.5-5.0 L BILIRUBIN TOTAL (BEAKER) (test code 0.3 mg/dL 0.2-1.2 = 377) BILIRUBIN DIRECT (BEAKER) (test 0.2 mg/dL 0.1-0.5 code = 706) ALKALINE PHOSPHATASE (BEAKER) (test 87 U/L 40-150 code = 346) AST (SGOT) (BEAKER) (test code = 10 U/L 5-34 353) ALT (SGPT) (BEAKER) (test code = 6 U/L 6-55 347) Director Of Ancillary Services ID - [id number] 06:35:25 Test Item Value Reference Range Interpretation Comments PARTIAL THROMBOPLASTIN TIME 55.7 seconds 22.5-36.0 H (BEAKER) (test code = 760) CBC (HEMOGRAM ONLY)2023-01-19 06:27:12 Test Item Value Reference Range Interpretation Comments WHITE BLOOD CELL COUNT (BEAKER) 12.5 K/ L 3.5-10.5 H (test code = 775) RED BLOOD CELL COUNT (BEAKER) 3.34 M/ L 4.63-6.08 L (test code = 761) HEMOGLOBIN (BEAKER) (test code = 7.8 GM/DL 13.7-17.5 L 410) HEMATOCRIT (BEAKER) (test code = 25.6 % 40.1-51.0 L 411) MEAN CORPUSCULAR VOLUME (BEAKER) 77 fL 79-92 L (test code = 753) MEAN CORPUSCULAR HEMOGLOBIN 23.4 pg 25.7-32.2 L (BEAKER) (test code = 751) MEAN CORPUSCULAR HEMOGLOBIN CONC 30.5 GM/DL 32.3-36.5 L (BEAKER) (test code = 752) RED CELL DISTRIBUTION WIDTH 20.7 % 11.6-14.4 H (BEAKER) (test code = 412) PLATELET COUNT (BEAKER) (test 264 K/CU MM 150-450 code = 756) MEAN PLATELET VOLUME (BEAKER) 8.7 fL 9.4-12.4 L (test code = 754) NUCLEATED RED BLOOD CELLS 0 /100 WBC 0-0 (BEAKER) (test code = 413) [id number] 23:57:50 Test Item Value Reference Range Interpretation Comments PARTIAL THROMBOPLASTIN TIME 65.8 seconds 22.5-36.0 H (BEAKER) (test code = 760) [id number] 17:16:13 Test Item Value Reference Range Interpretation Comments PARTIAL THROMBOPLASTIN TIME 56.9 seconds 22.5-36.0 H (BEAKER) (test code = 760) [id number] 11:08:55 Test Item Value Reference Range Interpretation Comments PARTIAL THROMBOPLASTIN TIME 43.9 seconds 22.5-36.0 H (BEAKER) (test code = 760) HEPATIC FUNCTION [id number] 04:43:44 Test Item Value Reference Range Interpretation Comments TOTAL PROTEIN (BEAKER) (test code = 4.8 gm/dL 6.0-8.3 L 770) ALBUMIN (BEAKER) (test code = 1145) 2.4 g/dL 3.5-5.0 L BILIRUBIN TOTAL (BEAKER) (test code 0.6 mg/dL 0.2-1.2 = 377) BILIRUBIN DIRECT (BEAKER) (test 0.3 mg/dL 0.1-0.5 code = 706) ALKALINE PHOSPHATASE (BEAKER) (test 86 U/L 40-150 code = 346) AST (SGOT) (BEAKER) (test code = 11 U/L 5-34 353) ALT (SGPT) (BEAKER) (test code = < U/L 6-55 L 347) Director Of Ancillary Services ID - MMBASIC METABOLIC [id number] 04:43:41 Test Item Value Reference Range Interpretation Comments SODIUM (BEAKER) 135 meq/L 136-145 L (test code = 381) POTASSIUM 4.0 meq/L 3.5-5.1 (BEAKER) (test code = 379) CHLORIDE (BEAKER) 103 meq/L 98-107 (test code = 382) CO2 (BEAKER) 26 meq/L 22-29 (test code = 355) BLOOD UREA 7 mg/dL 7-21 NITROGEN (BEAKER) (test code = 354) CREATININE 0.79 mg/dL 0.57-1.25 (BEAKER) (test code = 358) GLUCOSE RANDOM 87 mg/dL 70-105 (BEAKER) (test code = 652) CALCIUM (BEAKER) 7.8 mg/dL 8.4-10.2 L (test code = 697) EGFR (BEAKER) 95 Interpretatio n of eGFR (test code = mL/min/1.73 values Stage De scription 1092) sq m Result G1 Kiana l or high >=90 G2 Mildly decreased 60-89 G3a Mildl y to moderately 45- 59 G3b Moderately to s everely 30-44 G4 Severl y decreased 15-29 G5 Kidney failure <15Reported eGF R is based on the CKD-EPI 2020 equation that d oes not use a race coefficientEsti mated GFR is not as accur ate as Creatinine Rosa briseyda in predicting glom erular filtration rate . Estimated GFR is not appl icable for dialysis patien ts Director Of Ancillary Services ID - [id number] 04:38:48 Test Item Value Reference Range Interpretation Comments MAGNESIUM (BEAKER) (test code = 1.9 mg/dL 1.6-2.6 627) Director Of Ancillary Services ID - MMCBC (HEMOGRAM ONLY)2023-01-18 04:15:26 Test Item Value Reference Range Interpretation Comments WHITE BLOOD CELL COUNT (BEAKER) 13.7 K/ L 3.5-10.5 H (test code = 775) RED BLOOD CELL COUNT (BEAKER) 3.39 M/ L 4.63-6.08 L (test code = 761) HEMOGLOBIN (BEAKER) (test code = 8.1 GM/DL 13.7-17.5 L 410) HEMATOCRIT (BEAKER) (test code = 26.2 % 40.1-51.0 L 411) MEAN CORPUSCULAR VOLUME (BEAKER) 77 fL 79-92 L (test code = 753) MEAN CORPUSCULAR HEMOGLOBIN 23.9 pg 25.7-32.2 L (BEAKER) (test code = 751) MEAN CORPUSCULAR HEMOGLOBIN CONC 30.9 GM/DL 32.3-36.5 L (BEAKER) (test code = 752) RED CELL DISTRIBUTION WIDTH 20.2 % 11.6-14.4 H (BEAKER) (test code = 412) PLATELET COUNT (BEAKER) (test 272 K/CU MM 150-450 code = 756) MEAN PLATELET VOLUME (BEAKER) 8.8 fL 9.4-12.4 L (test code = 754) NUCLEATED RED BLOOD CELLS 0 /100 WBC 0-0 (BEAKER) (test code = 413) RAD, CHEST, 1 VIEW, NON [id number] 00:31:00Reason for exam:->feverShould this be performed at the bedside?->Yes [facility] : 1950 Sex: MFINAL REPORT RAD, CHEST, 1 VIEW, NON DEPT INDICATION: fever COMPARISON: Prior day's exam FINDINGS: Portable frontal view of the chest. IMPRESSION: Support Lines: None Lungs and pleura: No significant change in patchy parenchymal opacities left lung and moderate left pleural effusion. No new airspace consolidation. No pneumothorax. Heart and mediastinum: Stable contours. Additional findings: None. Signed: Valente Morrison [facility] Verified Date/Time: 01/18/2023 00:31:01 URINALYSIS W/ REFLEX URINE [id number] 00:05:30 Test Item Value Reference Range Interpretation Comments COLOR (BEAKER) (test code = 470) Light Yellow CLARITY (BEAKER) (test code = Clear 469) SPECIFIC GRAVITY UA (BEAKER) 1.028 1.001-1.035 (test code = 468) PH UA (BEAKER) (test code = 467) 6.0 5.0-8.0 PROTEIN UA (BEAKER) (test code = 10 mg/dL Negative A 464) GLUCOSE UA (BEAKER) (test code = Negative Negative 365) KETONES UA (BEAKER) (test code = Negative Negative 371) BILIRUBIN UA (BEAKER) (test code Negative Negative = 462) BLOOD UA (BEAKER) (test code = Negative Negative 461) NITRITE UA (BEAKER) (test code = Negative Negative 465) LEUKOCYTE ESTERASE UA (BEAKER) Negative Negative (test code = 466) UROBILINOGEN UA (BEAKER) (test 0.2 0.2-1.0 code = 463) RBC UA (BEAKER) (test code = 1 /HPF 519) WBC UA (BEAKER) (test code = 2 /HPF 520) MUCUS (BEAKER) (test code = Rare 1574) SOURCE(BEAKER) (test code = 2795) Director Of Ancillary Services ID - [auto]Director Of Ancillary Services ID - techCBC (HEMOGRAM ONLY)2023-01-17 23:58:22 Test Item Value Reference Range Interpretation Comments WHITE BLOOD CELL COUNT (BEAKER) 15.4 K/ L 3.5-10.5 H (test code = 775) RED BLOOD CELL COUNT (BEAKER) 3.34 M/ L 4.63-6.08 L (test code = 761) HEMOGLOBIN (BEAKER) (test code = 8.0 GM/DL 13.7-17.5 L 410) HEMATOCRIT (BEAKER) (test code = 25.9 % 40.1-51.0 L 411) MEAN CORPUSCULAR VOLUME (BEAKER) 78 fL 79-92 L (test code = 753) MEAN CORPUSCULAR HEMOGLOBIN 24.0 pg 25.7-32.2 L (BEAKER) (test code = 751) MEAN CORPUSCULAR HEMOGLOBIN CONC 30.9 GM/DL 32.3-36.5 L (BEAKER) (test code = 752) RED CELL DISTRIBUTION WIDTH 20.0 % 11.6-14.4 H (BEAKER) (test code = 412) PLATELET COUNT (BEAKER) (test 266 K/CU MM 150-450 code = 756) MEAN PLATELET VOLUME (BEAKER) 8.9 fL 9.4-12.4 L (test code = 754) NUCLEATED RED BLOOD CELLS 0 /100 WBC 0-0 (BEAKER) (test code = 413) CBC (HEMOGRAM ONLY)2023-01-17 18:47:57 Test Item Value Reference Range Interpretation Comments WHITE BLOOD CELL COUNT (BEAKER) 16.4 K/ L 3.5-10.5 H (test code = 775) RED BLOOD CELL COUNT (BEAKER) 3.74 M/ L 4.63-6.08 L (test code = 761) HEMOGLOBIN (BEAKER) (test code = 8.7 GM/DL 13.7-17.5 L 410) HEMATOCRIT (BEAKER) (test code = 28.9 % 40.1-51.0 L 411) MEAN CORPUSCULAR VOLUME (BEAKER) 77 fL 79-92 L (test code = 753) MEAN CORPUSCULAR HEMOGLOBIN 23.3 pg 25.7-32.2 L (BEAKER) (test code = 751) MEAN CORPUSCULAR HEMOGLOBIN CONC 30.1 GM/DL 32.3-36.5 L (BEAKER) (test code = 752) RED CELL DISTRIBUTION WIDTH 19.9 % 11.6-14.4 H (BEAKER) (test code = 412) PLATELET COUNT (BEAKER) (test 300 K/CU MM 150-450 code = 756) MEAN PLATELET VOLUME (BEAKER) 8.7 fL 9.4-12.4 L (test code = 754) NUCLEATED RED BLOOD CELLS 0 /100 WBC 0-0 (BEAKER) (test code = 413) CBC (HEMOGRAM ONLY)2023-01-17 13:25:46 Test Item Value Reference Range Interpretation Comments WHITE BLOOD CELL 18.5 K/ L 3.5-10.5 H COUNT (BEAKER) (test code = 775) RED BLOOD CELL COUNT 4.33 M/ L 4.63-6.08 L (BEAKER) (test code = 761) HEMOGLOBIN (BEAKER) 10.1 GM/DL 13.7-17.5 L Signific antly (test code = 410) different than previous result s. Patient transfu sed HEMATOCRIT (BEAKER) 33.8 % 40.1-51.0 L (test code = 411) MEAN CORPUSCULAR 78 fL 79-92 L VOLUME (BEAKER) (test code = 753) MEAN CORPUSCULAR 23.3 pg 25.7-32.2 L HEMOGLOBIN (BEAKER) (test code = 751) MEAN CORPUSCULAR 29.9 GM/DL 32.3-36.5 L HEMOGLOBIN CONC (BEAKER) (test code = 752) RED CELL DISTRIBUTION 19.9 % 11.6-14.4 H WIDTH (BEAKER) (test code = 412) PLATELET COUNT 347 K/CU MM 150-450 (BEAKER) (test code = 756) MEAN PLATELET VOLUME 8.8 fL 9.4-12.4 L (BEAKER) (test code = 754) NUCLEATED RED BLOOD 0 /100 WBC 0-0 CELLS (BEAKER) (test code = 413) Prepare Leuko-Red [id number] 06:46:00 Test Item Value Reference Range Interpretation Comments CROSSMATCH (test code = 2264) COMPATIBLE Unit ABO (test code = A Neg 9573134) UNIT NUMBER (test code = [id number] 934-0) Status (test code = 0032161) ISSUED Blood Bank Product (test code RED BLOOD CELLS = 2263) PRODUCT CODE (test code = D2369O25 933-2) [facility] 06:16:59 Test Item Value Reference Range Interpretation Comments PARTIAL THROMBOPLASTIN TIME 93.5 seconds 22.5-36.0 H (BEAKER) (test code = 760) [id number] 06:15:39 Test Item Value Reference Range Interpretation Comments FIBRINOGEN LEVEL (BEAKER) (test 368 mg/dl 225-434 code = 658) PROTHROMBIN TIME/[id number] 06:15:13 Test Item Value Reference Range Interpretation Comments PROTIME (BEAKER) (test code = 15.9 seconds 11.9-14.2 H 759) INR (BEAKER) (test code = 370) 1.36 <=5.90 RECOMMENDED COUMADIN/WARFARIN INR THERAPY RANGESSTANDARD DOSE: 2.0 - 3.0 Includes: PROPHYLAXIS for venous thrombosis, systemic embolization; TREATMENT for venous thrombosis and/or pulmonary embolus.HIGH RISK: Target INR is 2.5-3.5 for patients with mechanical heart valves.CBC (HEMOGRAM ONLY)2023-01-17 05:59:36 Test Item Value Reference Range Interpretation Comments WHITE BLOOD CELL COUNT (BEAKER) 10.9 K/ L 3.5-10.5 H (test code = 775) RED BLOOD CELL COUNT (BEAKER) 2.99 M/ L 4.63-6.08 L (test code = 761) HEMOGLOBIN (BEAKER) (test code = 6.9 GM/DL 13.7-17.5 L 410) HEMATOCRIT (BEAKER) (test code = 23.3 % 40.1-51.0 L 411) MEAN CORPUSCULAR VOLUME (BEAKER) 78 fL 79-92 L (test code = 753) MEAN CORPUSCULAR HEMOGLOBIN 23.1 pg 25.7-32.2 L (BEAKER) (test code = 751) MEAN CORPUSCULAR HEMOGLOBIN CONC 29.6 GM/DL 32.3-36.5 L (BEAKER) (test code = 752) RED CELL DISTRIBUTION WIDTH 20.2 % 11.6-14.4 H (BEAKER) (test code = 412) PLATELET COUNT (BEAKER) (test 292 K/CU MM 150-450 code = 756) MEAN PLATELET VOLUME (BEAKER) 9.3 fL 9.4-12.4 L (test code = 754) NUCLEATED RED BLOOD CELLS 0 /100 WBC 0-0 (BEAKER) (test code = 413) BASIC METABOLIC [id number] 04:52:29 Test Item Value Reference Range Interpretation Comments SODIUM (BEAKER) 135 meq/L 136-145 L (test code = 381) POTASSIUM 3.8 meq/L 3.5-5.1 (BEAKER) (test code = 379) CHLORIDE (BEAKER) 105 meq/L 98-107 (test code = 382) CO2 (BEAKER) 22 meq/L 22-29 (test code = 355) BLOOD UREA 5 mg/dL 7-21 L NITROGEN (BEAKER) (test code = 354) CREATININE 0.80 mg/dL 0.57-1.25 (BEAKER) (test code = 358) GLUCOSE RANDOM 104 mg/dL 70-105 (BEAKER) (test code = 652) CALCIUM (BEAKER) 7.6 mg/dL 8.4-10.2 L (test code = 697) EGFR (BEAKER) 95 Interpretatio n of eGFR (test code = mL/min/1.73 values Stage De scription 1092) sq m Result G1 Kiana l or high >=90 G2 Mildly decreased 60-89 G3a Mildl y to moderately 45-5 9 G3b Moderately to s everely 30-44 G4 Severl y decreased 15-29 G5 Kidney failure <15Reported eGF R is based on the CKD-EPI 2020 equation that d oes not use a race coefficientEsti mated GFR is not as accur ate as Creatinine Rosa rain in predicting glom erular filtration rate . Estimated GFR is not appl icable for dialysis patien ts Director Of Ancillary Services ID - ADMINHEPATIC FUNCTION [id number] 04:52:24 Test Item Value Reference Range Interpretation Comments TOTAL PROTEIN (BEAKER) (test code = 4.5 gm/dL 6.0-8.3 L 770) ALBUMIN (BEAKER) (test code = 1145) 2.3 g/dL 3.5-5.0 L BILIRUBIN TOTAL (BEAKER) (test code 0.3 mg/dL 0.2-1.2 = 377) BILIRUBIN DIRECT (BEAKER) (test 0.2 mg/dL 0.1-0.5 code = 706) ALKALINE PHOSPHATASE (BEAKER) (test 68 U/L 40-150 code = 346) AST (SGOT) (BEAKER) (test code = 10 U/L 5-34 353) ALT (SGPT) (BEAKER) (test code = < U/L 6-55 L 347) Director Of Ancillary Services ID - [id number] 04:41:53 Test Item Value Reference Range Interpretation Comments MAGNESIUM (BEAKER) (test code = 1.8 mg/dL 1.6-2.6 627) Director Of Ancillary Services ID - ADMINCBC (HEMOGRAM ONLY)2023-01-17 04:11:28 Test Item Value Reference Range Interpretation Comments WHITE BLOOD CELL COUNT (BEAKER) 10.5 K/ L 3.5-10.5 (test code = 775) RED BLOOD CELL COUNT (BEAKER) 2.93 M/ L 4.63-6.08 L (test code = 761) HEMOGLOBIN (BEAKER) (test code = 6.7 GM/DL 13.7-17.5 L 410) HEMATOCRIT (BEAKER) (test code = 22.6 % 40.1-51.0 L 411) MEAN CORPUSCULAR VOLUME (BEAKER) 77 fL 79-92 L (test code = 753) MEAN CORPUSCULAR HEMOGLOBIN 22.9 pg 25.7-32.2 L (BEAKER) (test code = 751) MEAN CORPUSCULAR HEMOGLOBIN CONC 29.6 GM/DL 32.3-36.5 L (BEAKER) (test code = 752) RED CELL DISTRIBUTION WIDTH 19.9 % 11.6-14.4 H (BEAKER) (test code = 412) PLATELET COUNT (BEAKER) (test 292 K/CU MM 150-450 code = 756) MEAN PLATELET VOLUME (BEAKER) 9.0 fL 9.4-12.4 L (test code = 754) NUCLEATED RED BLOOD CELLS 0 /100 WBC 0-0 (BEAKER) (test code = 413) SARS-CoV2/RT-PCR (Symptomatic ONLY)2023-01-17 01:10:35 Test Item Value Reference Interpretation Comments Range SARS-COV2/RT-PCR Negative Negative The SARS-Co V-2 (test code = target nucleic 83583-1) acids are not detected in thi s specimen. Negat hilton results do not preclude SARS-C oV-2 infection and should not be u sed as the sole bas is for patient management decisions. Nega tive results must be combined with clinical observations, patient history , and epidemiolog ical information. A false negative result may occu r if a specimen is improperly collected, transported or handled. This S ARS CoV-2 test is a rapid, real-wu e RT-PCR test intended for th e qualitative detection of nucleic acid fr om SARS-CoV-2 in a nasopharyngeal swab specimen collec kem from individual s suspected of COVID-19 by the ir healthcare provider. NILAM (test code = This test has been NILAM) authorized by FDA under an EUA for use by authorized laboratories. This test is only authorized for the duration of the declaration that circumstances exist justifying the authorization of emergency use of in vitro diagnostic tests for detection and/or diagnosis of COVID-19 under Section 564(b)(1) of the Federal Food, Drug and Cosmetic Act, 21 U.S.C. 360bbb-3(b)(1), unless the authorization is terminated or revoked sooner. Fact Sheet for Healthcare Providers: https://www.[employer]/Documents/Xp ert%20Xpress%20SAR S%20CoV-2/Fact%20S heets/265-5502%20S ARS-COV-2%20HEALTH CARE%20PROVIDERS%2 0FACT%20SHEET.pdf Fact Sheet for Healthcare Patients: https://www.[employer]/Documents/Xp ert%20Xpress%20SAR S%20CoV-2/Fact%20S heets/302-3801%20S ARS-COV-2%20PATIEN T%20FACT%20SHEET.p df Lab Interpretation Normal (test code = 90710-7) [facility]2023-01-17 01:10:35 Test Item Value Reference Range Interpretation Comments SARS-COV2/RT-PCR Negative Negative The SARS-Co V-2 target (test code = nucleic acids a re not 1498861) detected in thi s specimen. Negative result s do not preclude SARS-C oV-2 infection and s hould not be used as the brea e basis for patient managem ent decisions. Nega tive results must be combine d with clinical observ ations, patient history , and epidemiological information. A false negativ e result may occur if a spec imen is improperly moraima ected, transported or handled. This SARS CoV-2 test is a rapid, real-time RT-PC R test intended for th e qualitative detection of nu cleic acid from SARS-CoV-2 in a nasopharyngeal swab specimen collected from individuals suspected of CO VID-19 by their healthcar e provider. This test has been authorized by FDA under an EUA for use by authorized laboratories. This test is only authorized for the duration of the declaration that circumstances exist justifying the authorization of emergency use of in vitro diagnostic tests for detection and/or diagnosis of COVID-19 under Section 564(b)(1) of the Federal Food, Drug and Cosmetic Act, 21 U.S.C. 360bbb-3(b)(1), unless the authorization is terminated or revoked sooner. Fact Sheet for Healthcare Providers: https://www.[employer]/Documents/Xpert%20Xpress%20SARS%20CoV-2/Fact%20Sheets/3023802%65EBKR-MHT-0%20 HEALTHCARE%20PROVIDERS%20FACT%20SHEET.pdf Fact Sheet for Healthcare Patients: https://www.[employer]/Documents/Xpert%20Xp ress%20SARS%20CoV-2/Fact%20Sheets/302-3801%71RKEV-CWE-5%20PATIENT%20FACT%20SHEET .pdfCT, CHEST WITH IV CONTRAST- PE TEST [id number] 00:39:00Unlisted Reason for Exam - Click Yes and Enter Reason Below->No [facility] : 1950 Sex: MFINAL REPORT TECHNIQUE: CTA of the chest WITH intravenous contrast. Axial MIP imageswere provided to better assess the vasculature. Coronal and sagittal MPR images were performed. Dosemodulation, iterative reconstruction, and/or weight-based adjustment of the mA/kV was utilized to reduce the radiation dose to as low as reasonably achievable. INDICATION: PE suspected, high prob. COMPARISON: CT of the [facility] at 4:37 PM FINDINGS: LINES/TUBES: None. PULMONARY ARTERIES: Proximal to the bifurcation of the main pulmonary artery, the main pulmonary artery is 2.4 cm in diameter. Right middle lobe and right lower lobe segmental and subsegmental pulmonary line. Right upper lobe lobar and segmental pulmonary emboli. No discrete pulmonary embolus within the left lung. There is straightening of the intraventricular septum. Elevated RV to LV ratio 1.2. HEART AND MEDIASTINUM: The visualized thyroid gland is normal. No significant mediastinal, hilar, or axi llary lymphadenopathy. Heart is within normal limits in size. No pericardial effusion. Coronary artery atherosclerotic calcifications are present. PLEURA: Small left pleural effusion. LUNGS AND AIRWAYS: In comparison 01/10/2023 there is new dense dependent consolidation within the left lower lung with additional patchy areas of peripheral consolidation within the left upper lung. There are bilateral patchy groundglass opacities predominantly dependent in distribution on the right and fairly diffuse on the left, new since the prior examination. SOFT TISSUES AND BONES: Chronic appearing L2 compressiondeformity.UPPER ABDOMEN: Unremarkable. IMPRESSION: 1. Right upper lobe lobar and segmental and right middle and right lower lobe segmental and subsegmental pulmonary emboli. CT findings of RV strain asevidence by a strain of the intraventricular septum and elevated RV to LV ratio.2. New dense dependent consolidation within the left lower lung with additional patchy areas of consolidation within the left mid to upper lung. New bilateral groundglass opacities, predominantly dependent on the right. Findings suggest multifocal pneumonia or aspiration. Given the presence of pulmonary emboli groundglassopacity on the right may be related to pulmonary hemorrhage, in the appropriate clinical setting. Critical results discussed with and acknowledged by WALI Patiño on 01/17/2023 12:34 AM. Signed: Nicholas Delarosa [facility] Verified Date/Time: 01/17/2023 00:39:34 [id number] 00:03:02 Test Item Value Reference Range Interpretation Comments PARTIAL THROMBOPLASTIN TIME 93.6 seconds 22.5-36.0 H (BEAKER) (test code = 760) LACTIC ACID, [id number] 22:01:34 Test Item Value Reference Range Interpretation Comments LACTATE BLOOD VENOUS (2) (BEAKER) 1.09 mmol/L 0.50-2.00 (test code = 2872) Director Of Ancillary Services ID - ADMINCALCIUM, [id number] 21:47:40 Test Item Value Reference Range Interpretation Comments CALCIUM IONIZED (BEAKER) (test 1.07 mmol/L 1.12-1.27 L code = 698) PH, BLOOD (BEAKER) (test code = 7.36 1810) RAD, CHEST, 1 VIEW, NON [id number] 21:19:00Reason for exam:- >hypoxiaShould this be performed at the bedside?->Yes [facility] 1950 Sex: MFINAL REPORT EXAM: Chest one view COMPARISON: January 11, 2023 CLINICAL HISTORY: HypoxiaFINDINGS: There is interval development of airway opacity involving the entire left lung and right lower lobe likely represent pneumonitis. The cardiac size is within normal limits. There is no evidence of pleural effusion or pneumothorax. The regional osseous structures are unremarkable. Signed: Dayami Patricia MDReport Verified Date/Time: 01/16/2023 21:19:45 SENSITIVITY TROPONIN [id number] 18:45:30 Test Item Value Reference Range Interpretation Comments HIGH SENSITIVITY TROPONIN I (test 8 pg/ml <=35 code = 0396842) Director Of Ancillary Services ID - BSThe SECOND FLOOR OPERATOR STAT High Sensitivity Troponin-I results should be used in conjunctionwith other diagnostic information such as ECG, clinical observations and information, and patient symptoms to aid in the diagnosis of MA.B-TYPE NATRIURETIC FACTOR (BNP)2023-01-16 18:42:45 Test Item Value Reference Range Interpretation Comments B-TYPE NATRIURETIC PEPTIDE (BEAKER) 62 pg/mL 0-100 (test code = 700) Director Of Ancillary Services ID - [id number] 17:19:24 Test Item Value Reference Range Interpretation Comments PARTIAL THROMBOPLASTIN TIME 37.7 seconds 22.5-36.0 H (BEAKER) (test code = 760) Blood gas, [id number] 17:15:01 Test Item Value Reference Range Interpretation Comments pH, Arterial (test 7.38 7.35-7.45 code = 2744-1) pCO2, Arterial (test 42 See_Comment [Autom ated message] code = 2019-8) The system [employer] generated this result transmitted ref erence range: 35 - 45 mm Hg. The reference r carina was not used to interpret this result as normal/abnor mal. pO2, Arterial (test 90 See_Comment [Automa kem message] code = 2703-7) The system [facility] generated this result transmitted ref erence range: 80 - 90 mm Hg. The reference r carina was not used to interpret this result as normal/abnor mal. O2 Sat, Arterial 96.7 % 96.0-97.0 (test code = 2708-6) HCO3, Arterial (test 25 mmol/L 21-29 code = 1960-4) Base Excess, Arterial -0.4 mmol/L -2.0-3.0 (test code = 1925-7) Patient Temperature 37.2 (test code = 8310-5) FIO2 (test code = 50 1819) [facility], [id number] 17:15:01 Test Item Value Reference Range Interpretation Comments PH ARTERIAL (BEAKER) (test code = 7.38 7.35-7.45 383) PCO2 ARTERIAL (BEAKER) (test code 42 mm Hg 35-45 = 384) PO2 ARTERIAL (BEAKER) (test code 90 mm Hg 80-90 = 385) O2 SATURATION ARTERIAL (BEAKER) 96.7 % 96.0-97.0 (test code = 386) HCO3 ARTERIAL (BEAKER) (test code 25 mmol/L 21-29 = 388) BASE EXCESS ARTERIAL (BEAKER) -0.4 mmol/L -2.0-3.0 (test code = 387) PATIENT TEMPERATURE (BEAKER) 37.2 (test code = 1818) FIO2 (BEAKER) (test code = 1819) 50.0 BASIC METABOLIC [id number] 04:34:27 Test Item Value Reference Range Interpretation Comments SODIUM (BEAKER) 140 meq/L 136-145 (test code = 381) POTASSIUM 3.7 meq/L 3.5-5.1 (BEAKER) (test code = 379) CHLORIDE (BEAKER) 106 meq/L 98-107 (test code = 382) CO2 (BEAKER) 25 meq/L 22-29 (test code = 355) BLOOD UREA 3 mg/dL 7-21 L NITROGEN (BEAKER) (test code = 354) CREATININE 0.77 mg/dL 0.57-1.25 (BEAKER) (test code = 358) GLUCOSE RANDOM 106 mg/dL 70-105 H (BEAKER) (test code = 652) CALCIUM (BEAKER) 8.3 mg/dL 8.4-10.2 L (test code = 697) EGFR (BEAKER) 96 Interpretatio n of eGFR (test code = mL/min/1.73 values Stage De scription 1092) sq m Result G1 Kiana l or high >=90 G2 Mildly decreased 60-89 G3a Mildl y to moderately 45-5 9 G3b Moderately to s everely 30-44 G4 Severl y decreased 15-29 G5 Kidney failure <15Reported eGF R is based on the CKD-EPI 2020 equation that d oes not use a race coefficientEsti mated GFR is not as accur ate as Creatinine Rosa briseyda in predicting glom erular filtration rate . Estimated GFR is not appl icable for dialysis patien ts Director Of Ancillary Services ID Judy KRUSE [id number] 04:34:27 Test Item Value Reference Range Interpretation Comments MAGNESIUM (BEAKER) (test code = 2.0 mg/dL 1.6-2.6 627) Director Of Ancillary Services MARKY KRUSE WHEPATIC FUNCTION [id number] 04:34:27 Test Item Value Reference Range Interpretation Comments TOTAL PROTEIN (BEAKER) (test code = 5.4 gm/dL 6.0-8.3 L 770) ALBUMIN (BEAKER) (test code = 1145) 2.7 g/dL 3.5-5.0 L BILIRUBIN TOTAL (BEAKER) (test code 0.3 mg/dL 0.2-1.2 = 377) BILIRUBIN DIRECT (BEAKER) (test 0.2 mg/dL 0.1-0.5 code = 706) ALKALINE PHOSPHATASE (BEAKER) (test 90 U/L 40-150 code = 346) AST (SGOT) (BEAKER) (test code = 13 U/L 5-34 353) ALT (SGPT) (BEAKER) (test code = 7 U/L 6-55 347) Director Of Ancillary Services MARKY KRUSE WCBC (HEMOGRAM ONLY)2023-01-16 04:05:23 Test Item Value Reference Range Interpretation Comments WHITE BLOOD CELL COUNT (BEAKER) 6.6 K/ L 3.5-10.5 (test code = 775) RED BLOOD CELL COUNT (BEAKER) 3.45 M/ L 4.63-6.08 L (test code = 761) HEMOGLOBIN (BEAKER) (test code = 7.8 GM/DL 13.7-17.5 L 410) HEMATOCRIT (BEAKER) (test code = 26.4 % 40.1-51.0 L 411) MEAN CORPUSCULAR VOLUME (BEAKER) 77 fL 79-92 L (test code = 753) MEAN CORPUSCULAR HEMOGLOBIN 22.6 pg 25.7-32.2 L (BEAKER) (test code = 751) MEAN CORPUSCULAR HEMOGLOBIN CONC 29.5 GM/DL 32.3-36.5 L (BEAKER) (test code = 752) RED CELL DISTRIBUTION WIDTH 19.6 % 11.6-14.4 H (BEAKER) (test code = 412) PLATELET COUNT (BEAKER) (test 334 K/CU MM 150-450 code = 756) MEAN PLATELET VOLUME (BEAKER) 8.9 fL 9.4-12.4 L (test code = 754) NUCLEATED RED BLOOD CELLS 0 /100 WBC 0-0 (BEAKER) (test code = 413) RAD, ABDOMEN/KUB, 1 VIEW [id number] 22:19:00Reason for exam:->NGT placementShould this be performed at the bedside?->Yes [facility] 1950 Sex: MFINAL REPORT EXAM: KUB COMPARISON: January 15, 2023 CLINICAL HISTORY: NG tube placement FINDINGS: There is interval advancement of the nasogastric tube with its tip overlying the gastric fundus. Air-filled dilated small bowel loops again noted throughout the abdomen which may represent ileus versus early obstruction. The regional osseous structures are unchanged. Signed: Martin Patricia MDReport Verified Date/Time: 01/15/2023 22:19:18 RAD, ABDOMEN/KUB, 1 VIEW [id number] 21:28:00Reason for exam:->NG placement (after advancement) [facility] 1950 Sex: MFINAL REPORT TECHNIQUE: RAD, ABDOMEN/KUB, 1 VIEW AP INDICATION: NG placement (after advancement). COMPARISON: 01/15/2023 FINDINGS:Esophagogastric tube has been withdrawn with tip now projects over the distal esophagus. Gaseous distention of small and large bowel loops, as before. Supineradiographs are insensitive for detection of free intraperitoneal air. IMPRESSION:Esophagogastric tube has been withdrawn since the prior examination with the tip now projected over the distal esophagus; recommend advancing by 15 to 20 cm. Signed: Nicholas Delarosa MDReport Verified Date/Time: 01/15/2023 21:28:23 RAD, ABDOMEN/KUB, 1 VIEW [id number] 19:47:00Reason for exam:- >Enteric tube placement verification [facility] 1950 Sex: MFINAL REPORT TECHNIQUE: RAD, ABDOMEN/KUB, 1 VIEW AP INDICATION: Enteric tube placement verification. COMPARISON: None. FINDINGS:Esophagogastric tube tip projects over the gastric funduswith sidehole above the level of the GE junction; recommend advancing by 5 to 10 cm. Gas within dilated small and large bowel suggesting ileus. Implantable, with catheter directed caudally over the sacrum. IMPRESSION: 1. Esophagogastric tube sidehole remains above the level of the GE junction; recommend advancing by 5 to 10 cm.2. Gaseous distention of small and large bowel suggesting ileus. Continuedradiographic follow-up is suggested. Signed: Nicholas Delarosa [facility] Verified Date/Time: 01/15/2023 19:47:46 HEPATIC FUNCTION [id number] 05:46:09 Test Item Value Reference Range Interpretation Comments TOTAL PROTEIN (BEAKER) (test code = 5.3 gm/dL 6.0-8.3 L 770) ALBUMIN (BEAKER) (test code = 1145) 2.7 g/dL 3.5-5.0 L BILIRUBIN TOTAL (BEAKER) (test code 0.3 mg/dL 0.2-1.2 = 377) BILIRUBIN DIRECT (BEAKER) (test 0.2 mg/dL 0.1-0.5 code = 706) ALKALINE PHOSPHATASE (BEAKER) (test 86 U/L 40-150 code = 346) AST (SGOT) (BEAKER) (test code = 11 U/L 5-34 353) ALT (SGPT) (BEAKER) (test code = 8 U/L 6-55 347) Director Of Ancillary Services ID - URIAH WBASIC METABOLIC [id number] 05:46:08 Test Item Value Reference Range Interpretation Comments SODIUM (BEAKER) 141 meq/L 136-145 (test code = 381) POTASSIUM 3.8 meq/L 3.5-5.1 (BEAKER) (test code = 379) CHLORIDE (BEAKER) 107 meq/L 98-107 (test code = 382) CO2 (BEAKER) 28 meq/L 22-29 (test code = 355) BLOOD UREA 3 mg/dL 7-21 L NITROGEN (BEAKER) (test code = 354) CREATININE 0.81 mg/dL 0.57-1.25 (BEAKER) (test code = 358) GLUCOSE RANDOM 92 mg/dL 70-105 (BEAKER) (test code = 652) CALCIUM (BEAKER) 8.3 mg/dL 8.4-10.2 L (test code = 697) EGFR (BEAKER) 95 Interpretatio n of eGFR (test code = mL/min/1.73 values Stage De scription 1092) sq m Result G1 Kiana l or high >=90 G2 Mildly decreased 60-89 G3a Mildl y to moderately 45-5 9 G3b Moderately to s everely 30-44 G4 Severl y decreased 15-29 G5 Kidney failure <15Reported eGF R is based on the CKD-EPI 2020 equation that d oes not use a race coefficientEsti mated GFR is not as accur ate as Creatinine Rosa briseyda in predicting glom erular filtration rate . Estimated GFR is not appl icable for dialysis patien ts Director Of Ancillary Services ID Judy KRUSE [id number] 05:46:08 Test Item Value Reference Range Interpretation Comments MAGNESIUM (BEAKER) (test code = 2.0 mg/dL 1.6-2.6 627) Director Of Ancillary Services ID - URIAH [id number] 05:46:08 Test Item Value Reference Range Interpretation Comments PHOSPHORUS (BEAKER) (test code = 3.1 mg/dL 2.3-4.7 604) Director Of Ancillary Services ID - URIAH [id number] 05:37:16 Test Item Value Reference Range Interpretation Comments PROTIME (BEAKER) (test code = 14.2 seconds 11.9-14.2 759) INR (BEAKER) (test code = 370) 1.12 <=5.90 PARTIAL THROMBOPLASTIN TIME 40.7 seconds 22.5-36.0 H (BEAKER) (test code = 760) RECOMMENDED COUMADIN/WARFARIN INR THERAPY RANGESSTANDARD DOSE: 2.0 - 3.0 Includes: PROPHYLAXIS for venous thrombosis, systemic embolization; TREATMENT for venous thrombosis and/or pulmonary embolus.HIGH RISK: Target INR is 2.5-3.5 for patients with mechanical heart valves.CBC (HEMOGRAM ONLY)2023-01-15 05:28:11 Test Item Value Reference Range Interpretation Comments WHITE BLOOD CELL COUNT (BEAKER) 5.3 K/ L 3.5-10.5 (test code = 775) RED BLOOD CELL COUNT (BEAKER) 3.37 M/ L 4.63-6.08 L (test code = 761) HEMOGLOBIN (BEAKER) (test code = 7.7 GM/DL 13.7-17.5 L 410) HEMATOCRIT (BEAKER) (test code = 25.6 % 40.1-51.0 L 411) MEAN CORPUSCULAR VOLUME (BEAKER) 76 fL 79-92 L (test code = 753) MEAN CORPUSCULAR HEMOGLOBIN 22.8 pg 25.7-32.2 L (BEAKER) (test code = 751) MEAN CORPUSCULAR HEMOGLOBIN CONC 30.1 GM/DL 32.3-36.5 L (BEAKER) (test code = 752) RED CELL DISTRIBUTION WIDTH 19.3 % 11.6-14.4 H (BEAKER) (test code = 412) PLATELET COUNT (BEAKER) (test 336 K/CU MM 150-450 code = 756) MEAN PLATELET VOLUME (BEAKER) 8.9 fL 9.4-12.4 L (test code = 754) NUCLEATED RED BLOOD CELLS 0 /100 WBC 0-0 (BEAKER) (test code = 413) BASIC METABOLIC [id number] 06:46:14 Test Item Value Reference Range Interpretation Comments SODIUM (BEAKER) 138 meq/L 136-145 (test code = 381) POTASSIUM 3.7 meq/L 3.5-5.1 (BEAKER) (test code = 379) CHLORIDE (BEAKER) 105 meq/L 98-107 (test code = 382) CO2 (BEAKER) 25 meq/L 22-29 (test code = 355) BLOOD UREA 7 mg/dL 7-21 NITROGEN (BEAKER) (test code = 354) CREATININE 0.76 mg/dL 0.57-1.25 (BEAKER) (test code = 358) GLUCOSE RANDOM 98 mg/dL 70-105 (BEAKER) (test code = 652) CALCIUM (BEAKER) 8.0 mg/dL 8.4-10.2 L (test code = 697) EGFR (BEAKER) 96 Interpretatio n of eGFR (test code = mL/min/1.73 values Stage De scription 1092) sq m Result G1 Kiana l or high >=90 G2 Mildly decreased 60-89 G3a Mildl y to moderately 45-5 9 G3b Moderately to s everely 30-44 G4 Severl y decreased 15-29 G5 Kidney failure <15Reported eGF R is based on the CKD-EPI 2020 equation that d oes not use a race coefficientEsti mated GFR is not as accur ate as Creatinine Rosa briseyda in predicting glom erular filtration rate . Estimated GFR is not appl icable for dialysis patien ts Director Of Ancillary Services ID - URIAH [facility] (HEMOGRAM ONLY)2023-01-14 06:07:14 Test Item Value Reference Range Interpretation Comments WHITE BLOOD CELL COUNT (BEAKER) 5.8 K/ L 3.5-10.5 (test code = 775) RED BLOOD CELL COUNT (BEAKER) 3.43 M/ L 4.63-6.08 L (test code = 761) HEMOGLOBIN (BEAKER) (test code = 7.9 GM/DL 13.7-17.5 L 410) HEMATOCRIT (BEAKER) (test code = 26.2 % 40.1-51.0 L 411) MEAN CORPUSCULAR VOLUME (BEAKER) 76 fL 79-92 L (test code = 753) MEAN CORPUSCULAR HEMOGLOBIN 23.0 pg 25.7-32.2 L (BEAKER) (test code = 751) MEAN CORPUSCULAR HEMOGLOBIN CONC 30.2 GM/DL 32.3-36.5 L (BEAKER) (test code = 752) RED CELL DISTRIBUTION WIDTH 19.1 % 11.6-14.4 H (BEAKER) (test code = 412) PLATELET COUNT (BEAKER) (test 304 K/CU MM 150-450 code = 756) MEAN PLATELET VOLUME (BEAKER) 9.1 fL 9.4-12.4 L (test code = 754) NUCLEATED RED BLOOD CELLS 0 /100 WBC 0-0 (BEAKER) (test code = 413) BASIC METABOLIC [id number] 04:54:37 Test Item Value Reference Range Interpretation Comments SODIUM (BEAKER) 135 meq/L 136-145 L (test code = 381) POTASSIUM 3.6 meq/L 3.5-5.1 (BEAKER) (test code = 379) CHLORIDE (BEAKER) 101 meq/L 98-107 (test code = 382) CO2 (BEAKER) 26 meq/L 22-29 (test code = 355) BLOOD UREA 9 mg/dL 7-21 NITROGEN (BEAKER) (test code = 354) CREATININE 0.82 mg/dL 0.57-1.25 (BEAKER) (test code = 358) GLUCOSE RANDOM 101 mg/dL 70-105 (BEAKER) (test code = 652) CALCIUM (BEAKER) 7.8 mg/dL 8.4-10.2 L (test code = 697) EGFR (BEAKER) 95 Interpretatio n of eGFR (test code = mL/min/1.73 values Stage De scription 1092) sq m Result G1 Kiana l or high >=90 G2 Mildly decreased 60-89 G3a Mildl y to moderately 45-5 9 G3b Moderately to s everely 30-44 G4 Severl y decreased 15-29 G5 Kidney failure <15Reported eGF R is based on the CKD-EPI 2020 equation that d oes not use a race coefficientEsti mated GFR is not as accur ate as Creatinine Rosa briseyda in predicting glom erular filtration rate . Estimated GFR is not appl icable for dialysis patien ts Director Of Ancillary Services ID - URIAH WCBC (HEMOGRAM ONLY)2023-01-13 04:26:05 Test Item Value Reference Range Interpretation Comments WHITE BLOOD CELL COUNT (BEAKER) 6.6 K/ L 3.5-10.5 (test code = 775) RED BLOOD CELL COUNT (BEAKER) 3.48 M/ L 4.63-6.08 L (test code = 761) HEMOGLOBIN (BEAKER) (test code = 7.8 GM/DL 13.7-17.5 L 410) HEMATOCRIT (BEAKER) (test code = 25.4 % 40.1-51.0 L 411) MEAN CORPUSCULAR VOLUME (BEAKER) 73 fL 79-92 L (test code = 753) MEAN CORPUSCULAR HEMOGLOBIN 22.4 pg 25.7-32.2 L (BEAKER) (test code = 751) MEAN CORPUSCULAR HEMOGLOBIN CONC 30.7 GM/DL 32.3-36.5 L (BEAKER) (test code = 752) RED CELL DISTRIBUTION WIDTH 19.1 % 11.6-14.4 H (BEAKER) (test code = 412) PLATELET COUNT (BEAKER) (test 311 K/CU MM 150-450 code = 756) MEAN PLATELET VOLUME (BEAKER) 8.8 fL 9.4-12.4 L (test code = 754) NUCLEATED RED BLOOD CELLS 0 /100 WBC 0-0 (BEAKER) (test code = 413) CARCINOEMBRYONIC ANTIGEN (CEA)2023-01-12 15:31:39 Test Item Value Reference Range Interpretation Comments CARCINOEMBRYONIC ANTIGEN (BEAKER) 97.6 ng/mL 0.0-5.0 H (test code = 685) Director Of Ancillary Services ID - [id number] 07:07:42 Test Item Value Reference Range Interpretation Comments MAGNESIUM (BEAKER) (test code = 2.1 mg/dL 1.6-2.6 627) Director Of Ancillary Services ID - MMBASIC METABOLIC [id number] 07:07:41 Test Item Value Reference Range Interpretation Comments SODIUM (BEAKER) 136 meq/L 136-145 (test code = 381) POTASSIUM 4.2 meq/L 3.5-5.1 (BEAKER) (test code = 379) CHLORIDE (BEAKER) 99 meq/L 98-107 (test code = 382) CO2 (BEAKER) 27 meq/L 22-29 (test code = 355) BLOOD UREA 8 mg/dL 7-21 NITROGEN (BEAKER) (test code = 354) CREATININE 0.86 mg/dL 0.57-1.25 (BEAKER) (test code = 358) GLUCOSE RANDOM 88 mg/dL 70-105 (BEAKER) (test code = 652) CALCIUM (BEAKER) 8.0 mg/dL 8.4-10.2 L (test code = 697) EGFR (BEAKER) 93 Interpretatio n of eGFR (test code = mL/min/1.73 values Stage De scription 1092) sq m Result G1 Kiana l or high >=90 G2 Mildly decreased 60-89 G3a Mildl y to moderately 45-5 9 G3b Moderately to s everely 30-44 G4 Severl y decreased 15-29 G5 Kidne y failure <15Reported eGF R is based on the CKD-EPI 2020 equation that d oes not use a race coefficientEsti mated GFR is not as accur ate as Creatinine Rsoa briseyda in predicting glom erular filtration rate . Estimated GFR is not appl icable for dialysis patien ts Director Of Ancillary Services ID - [id number] 07:02:58 Test Item Value Reference Range Interpretation Comments FERRITIN (BEAKER) (test code = 42.74 ng/mL 5.00-275.00 361) Director Of Ancillary Services ID - [id number] 06:42:02 Test Item Value Reference Range Interpretation Comments PREALBUMIN (BEAKER) (test code = 586) 5 mg/dL 14-45 L Director Of Ancillary Services ID - MMIRON, TIBC, % SAT. (WITHOUT FERRITIN)2023-01-12 06:42:02 Test Item Value Reference Range Interpretation Comments IRON (BEAKER) (test code = 547) 13.0 ug/dL 40.0-160.0 L TOTAL IRON BINDING CAPACITY 158 ug/dL 250-450 L (BEAKER) (test code = 769) IRON % SATURATION (2) (BEAKER) 8 % 20-55 L (test code = 2590) Director Of Ancillary Services ID - MMCBC (HEMOGRAM ONLY)2023-01-12 06:32:08 Test Item Value Reference Range Interpretation Comments WHITE BLOOD CELL COUNT (BEAKER) 6.7 K/ L 3.5-10.5 (test code = 775) RED BLOOD CELL COUNT (BEAKER) 3.34 M/ L 4.63-6.08 L (test code = 761) HEMOGLOBIN (BEAKER) (test code = 7.6 GM/DL 13.7-17.5 L 410) HEMATOCRIT (BEAKER) (test code = 24.8 % 40.1-51.0 L 411) MEAN CORPUSCULAR VOLUME (BEAKER) 74 fL 79-92 L (test code = 753) MEAN CORPUSCULAR HEMOGLOBIN 22.8 pg 25.7-32.2 L (BEAKER) (test code = 751) MEAN CORPUSCULAR HEMOGLOBIN CONC 30.6 GM/DL 32.3-36.5 L (BEAKER) (test code = 752) RED CELL DISTRIBUTION WIDTH 19.1 % 11.6-14.4 H (BEAKER) (test code = 412) PLATELET COUNT (BEAKER) (test 302 K/CU MM 150-450 code = 756) MEAN PLATELET VOLUME (BEAKER) 8.9 fL 9.4-12.4 L (test code = 754) NUCLEATED RED BLOOD CELLS 0 /100 WBC 0-0 (BEAKER) (test code = 413) RAD, CHEST, 1 VIEW, NON [id number] 21:33:00Reason for exam:->Eval lungsShould this be performed at the bedside?->Yes [facility] 1950 Sex: MFINAL REPORT EXAM/TECHNIQUE: Single view frontal radiograph of the chest. INDICATION: Evaluate lungs. COMPARISON: None. FINDINGS: Devices/Objects: None. Lungs: Left pleural effusion andhazy opacities are present. No visible pneumothorax. Heart/Mediastinum: No cardiomegaly. No interstitial thickening. Osseous: No acute osseous process. No suspicious osseous lesion. Upper abdomen: Unremarkable. Impression: Left apical and lateral pleural effusions. Signed: Alexi Grove MDReport Verified Date/Time: 01/11/2023 21:33:59 [id number] 18:27:57 Test Item Value Reference Range Interpretation Comments MAGNESIUM (BEAKER) (test code = 2.1 mg/dL 1.6-2.6 627) Director Of Ancillary Services ID - BSCOMPREHENSIVE METABOLIC [id number] 18:27:56 Test Item Value Reference Range Interpretation Comments TOTAL PROTEIN 5.9 gm/dL 6.0-8.3 L (BEAKER) (test code = 770) ALBUMIN (BEAKER) 3.1 g/dL 3.5-5.0 L (test code = 1145) ALKALINE 92 U/L 40-150 PHOSPHATASE (BEAKER) (test code = 346) BILIRUBIN TOTAL 0.5 mg/dL 0.2-1.2 (BEAKER) (test code = 377) SODIUM (BEAKER) 135 meq/L 136-145 L (test code = 381) POTASSIUM (BEAKER) 4.0 meq/L 3.5-5.1 (test code = 379) CHLORIDE (BEAKER) 97 meq/L 98-107 L (test code = 382) CO2 (BEAKER) (test 29 meq/L 22-29 code = 355) BLOOD UREA 9 mg/dL 7-21 NITROGEN (BEAKER) (test code = 354) CREATININE 0.93 mg/dL 0.57-1.25 (BEAKER) (test code = 358) GLUCOSE RANDOM 98 mg/dL 70-105 (BEAKER) (test code = 652) CALCIUM (BEAKER) 8.6 mg/dL 8.4-10.2 (test code = 697) AST (SGOT) 10 U/L 5-34 (BEAKER) (test code = 353) ALT (SGPT) 7 U/L 6-55 (BEAKER) (test code = 347) EGFR (BEAKER) 89 Interpretatio n of eGFR (test code = 1092) mL/min/1.[address] age Description sq m Result G1 Kiana l or high >=90 G2 Mildly decreased 60-89 G3a Mildl y to moderately 45- 59 G3b Moderately to s everely 30-44 G4 Severl y decreased 15-29 G5 Kidney failure <15Reported eGF R is based on the CKD-EPI 2020 equation that d oes not use a race coefficientEsti mated GFR is not as accur ate as Creatinine Rosa briseyda in predicting glom erular filtration rate . Estimated GFR is not appl icable for dialysis patien ts Director Of Ancillary Services ID - BSCBC W/PLT COUNT & AUTO [id number] 18:12:36 Test Item Value Reference Range Interpretation Comments WHITE BLOOD CELL COUNT (BEAKER) 8.0 K/ L 3.5-10.5 (test code = 775) RED BLOOD CELL COUNT (BEAKER) 3.90 M/ L 4.63-6.08 L (test code = 761) HEMOGLOBIN (BEAKER) (test code = 8.6 GM/DL 13.7-17.5 L 410) HEMATOCRIT (BEAKER) (test code = 28.2 % 40.1-51.0 L 411) MEAN CORPUSCULAR VOLUME (BEAKER) 72 fL 79-92 L (test code = 753) MEAN CORPUSCULAR HEMOGLOBIN 22.1 pg 25.7-32.2 L (BEAKER) (test code = 751) MEAN CORPUSCULAR HEMOGLOBIN CONC 30.5 GM/DL 32.3-36.5 L (BEAKER) (test code = 752) RED CELL DISTRIBUTION WIDTH 19.0 % 11.6-14.4 H (BEAKER) (test code = 412) PLATELET COUNT (BEAKER) (test 358 K/CU MM 150-450 code = 756) MEAN PLATELET VOLUME (BEAKER) 8.8 fL 9.4-12.4 L (test code = 754) NUCLEATED RED BLOOD CELLS 0 /100 WBC 0-0 (BEAKER) (test code = 413) NEUTROPHILS RELATIVE PERCENT 75 % (BEAKER) (test code = 429) LYMPHOCYTES RELATIVE PERCENT 16 % (BEAKER) (test code = 430) MONOCYTES RELATIVE PERCENT 5 % (BEAKER) (test code = 431) EOSINOPHILS RELATIVE PERCENT 3 % (BEAKER) (test code = 432) BASOPHILS RELATIVE PERCENT 0 % (BEAKER) (test code = 437) NEUTROPHILS ABSOLUTE COUNT 6.01 K/ L 1.78-5.38 H (BEAKER) (test code = 670) LYMPHOCYTES ABSOLUTE COUNT 1.31 K/ L 1.32-3.57 L (BEAKER) (test code = 414) MONOCYTES ABSOLUTE COUNT (BEAKER) 0.36 K/ L 0.30-0.82 (test code = 415) EOSINOPHILS ABSOLUTE COUNT 0.23 K/ L 0.04-0.54 (BEAKER) (test code = 416) BASOPHILS ABSOLUTE COUNT (BEAKER) 0.02 K/ L 0.01-0.08 (test code = 417) IMMATURE GRANULOCYTES-RELATIVE 1.00 % 0.00-1.00 PERCENT (BEAKER) (test code = 2801) PROTHROMBIN TIME/[id number] 18:06:55 Test Item Value Reference Range Interpretation Comments PROTIME (JOSEY) (test code = 15.3 seconds 11.9-14.2 H 759) INR (BEAKER) (test code = 370) 1.29 <=5.90 RECOMMENDED COUMADIN/WARFARIN INR THERAPY RANGESSTANDARD DOSE: 2.0 - 3.0 Includes: PROPHYLAXIS for venous thrombosis, systemic embolization; TREATMENT for venous thrombosis and/or pulmonary embolus.HIGH RISK: Target INR is 2.5-3.5 for patients with mechanical heart valves.[id number] 17:49:00 Test Item Value Reference Range Interpretation Comments APTT Patient (test See_Comment [Automat ed code = 3173-2) message] The system which generated this result transmitted reference range : 23 - 38 Seconds . The reference range was not used to interpr et this result as normal/abnormal . NILAM (test code = NILAM) [facility] patient population mean normal value for aPTT is 30 seconds. Lab Interpretation Normal (test code = 40470-5) [facility] [id number] 17:47:00 Test Item Value Reference Range Interpretation Comments PROTIME PATIENT (test See_Comment [Auto mated message] code = 5964-2) The system wh ich generated this result transmitted ref erence range: 12.0 - 1 4.7 Seconds. The re ference range was not u sed to interpret this result as normal/abnor mal. INR (test code = 6301-6) Nor mal INR <1.1; Warfarin Therap eutic range 2.0 to 3. 0 or 2.5 to 3.5, dep ending upon the indica tions. Lab Interpretation (test Normal code = 74416-0) [facility] FUNCTION TEST 2020-05-19 17:45:00 Test Item Value Reference Range Interpretation Comments COL/ADP ADP test not (test code performed due t o = EPI result with in [id number]) normal range. Tommy Hooker 05/19/2020 12:42 COL/EPI See_Comment [Automated (test code message] The = system which [id number]) generated this result transmitted reference range : [...] red cell transfusion prior to consideringplatelet supplements. [facility] WITH [id number] 15:09:00 Test Item Value Reference Range Interpretation Comments WBC (test code = See_Comment [Automated 2390-2) message] The sy stem which generated this result transmitted reference range : 4.20 - 10.70 10*3/?L. The reference range was not used to interpret this result as normal/abnormal . RBC (test code = See_Comment [Automated 789-8) message] The sy stem which generated this [...] RDW-SD (test code = 45.2 fL 38.5-51.6 05913-0) RDW-CV (test code = 13.2 % 12.1-15.4 788-0) PLT (test code = See_Comment [Automated 777-3) message] The sy stem which generated this result transmitted reference range : 150 - 328 10*3/ ?L. The reference r carina was not used to interpret this result as normal/abnormal . MPV (test code = 9.7 fL 9.8-13 L 19220-0) NRBC/100 WBC (test See_Comment [Automat ed code = 6118332661) message] The system which generated this result transmitted reference range : 0.0 - 10.0 /100 WBCs. The refer ence range was not u sed to interpret th is result as normal/abnormal . NRBC x10^3 (test code <0.01 See_Comment [Auto mated = [id number]) message] The s ystem which generated this result transmitted reference range : 10*3/?L. The reference range was not used to interpret this result as normal/abnormal . GRAN MAT (NEUT) % 60.9 % (test code = 770-8) IMM GRAN % (test code 0.30 % = 0263886350) LYMPH % (test code = 29.4 % 736-9) MONO % (test code = 6.0 % 5905-5) EOS % (test code = 2.8 % 713-8) BASO % (test code = 0.6 % 706-2) GRAN MAT x10^3(ANC) 3.85 10*3/uL 1.99-6.95 (test code = 1300496503) IMM GRAN x10^3 (test <0.03 0-0.06 code = 7868250044) LYMPH x10^3 (test code 1.86 10*3/uL 1.09-3.23 = 731-0) MONO x10^3 (test code 0.38 10*3/uL 0.36-1.02 = 742-7) EOS x10^3 (test code = 0.18 10*3/uL 0.06-0.53 711-2) BASO x10^3 (test code 0.04 10*3/uL 0.01-0.09 = 704-7) Lab Interpretation Abnormal (test code = 96799-6) [facility]
[2023-02-26] MEDS ORDERED: CEFAZOLIN 1 GM in NA CHLORIDE 0.9% 50 ML IVPB SCH (12:00)
--- NOTE | 2023-02-26 12:40 | P.HP ---
Certification for Inpatient Patient admitted to: Inpatient With expected LOS: >2 Midnights Practitioner: I am a practitioner with admitting privileges, knowledge of patient current condition, hospital course, and medical plan of care. Services: Services provided to patient in accordance with Admission requirements found in Title 42 Section 412.3 of the Code of Federal Regulations Patient History Date of Service: 02/26/23 Reason for admission: Colon cancer History of Present Illness: 73-year-old gentleman with a history of lymphoma, recently diagnosed with colon cancer was referred by Dr. Fuller had to be directly admitted here for evaluation for port placement and diverting colostomy. Patient complains of pelvic pain which is managed with oral morphine at home. He stated he continues to have bowel movement, mostly stool incontinence. He denied any fever. He denied any chills. He states that he has been tolerating diet. Allergies hydromorphone [From Dilaudid] Adverse Reaction (Verified 07/16/17 09:53) hallucinations Home Medications: Amitriptyline HCl 150 mg PO BEDTIME 06/25/17 Morphine Sulfate [Ms Contin] 30 mg PO BID 06/25/17 methocarbamoL [Robaxin*] 750 mg PO BID 06/25/17 Pantoprazole [Protonix Tab*] 40 mg PO BIDAC tab 01/11/23 Apixaban [Eliquis] 5 mg PO BID 02/26/23 Ferrous Sulfate [Feosol] 325 mg PO TID 02/26/23 Gabapentin 300 mg PO TID 02/26/23 Magnesium Oxide [Mag 0X Tab] 400 mg PO DAILY 02/26/23 Polyethylene Glycol 3350 [Miralax] 17 gm PO DAILY 02/26/23 Sennosides/Docusate Sodium [Senexon-S 50-8.6 mg Tablet] 2 each PO BID 02/26/23 - Past Medical/Surgical History -: lymphoma -: chronic back pain -: pain pump -: back sx -: skin ca removals -: lens implants bilateral -: appy -: lung sx -: bilateral knee sx -: rectal fistula -: bilateral bunyun removal - Family History Father -: Cancer (Skin cancer) - Social History Alcohol use: No CD- Drugs: No Caffeine use: Yes Review of Systems Other: Except as documented, all other systems reviewed and negative. Physical Examination - Physical Exam General: Alert, In no apparent distress, Cachectic HEENT: Atraumatic, Normocephalic, PERRLA, Mucous membr. moist/pink, Sclerae nonicteric Neck: Supple, JVD not distended Respiratory: Clear to auscultation bilaterally, Normal air movement Cardiovascular: No edema, Regular rate/rhythm, Normal S1 S2, No murmurs Capillary refill: <2 Seconds Gastrointestinal: Normal bowel sounds, Soft and benign, Non-distended, No tenderness Musculoskeletal: No swelling, No tenderness Integumentary: No rashes, No cyanosis Neurological: Normal speech, Normal strength at 5/5 x4 extr, Cranial nerves 3-12 intact Lymphatics: No axilla or inguinal lymphadenopathy Assessment and Plan - Problems (Diagnosis) (1) Colon cancer Current Visit: Yes Status: Acute (2) History of lymphoma Current Visit: Yes Status: Acute (3) Chronic pain Current Visit: Yes Status: Acute - Plan Admit patient to the medical floor. Consult to general surgery-Dr. Fuller. Dr. Fuller evaluated patient and recommend transfer to a tertiary center for laparoscopically perform colostomy which need to be done by colorectal surgeon and port placement. Dr. Fuller initiated transfer to [facility]. Accepting physician is Dr. Guerra. Resume patient's home medications-oral morphine. IV morphine as needed for breakthrough pain. Monitor H&H and transfuse as needed for hemoglobin less than 8 Hold Eliquis for impending procedure. Start full dose Lovenox. Resume other home medications - Advance Directives Does patient have a Living Will: No Does patient have a Durable POA for Healthcare: No
[2023-02-26] MEDS: NA CHLORIDE 0.9% 1,000 ML IV SCH (12:48)
[2023-02-26] MEDS ORDERED: ACETAMINOPHEN 500 MG TAB PO PRN (13:16)
[2023-02-26] MEDS ORDERED: ONDANSETRON 4 MG/2 ML VIAL IV PRN (13:16)
[2023-02-26] MEDS ORDERED: FENTANYL CITR 100 MCG/2 ML IV PRN (13:16)
[2023-02-26 14:05] LABS: Absolute Lymphocytes (CBC) 1.1 K/uL (0.7-4.9); Hematocrit 27.8 % (39.6-49.0); Lymphocytes % 15.7 % (15.3-44.8); MCV 79.8 fL (80-100); MPV 6.7 fL (7.6-11.3); RBC Red Blood Cell Count 3.48 M/uL (4.33-5.43)
[2023-02-26 14:16] LABS: Protime INR 1.45
[2023-02-26 14:22] LABS: Potassium 4.1 mEq/L (3.5-5.1)
[2023-02-26] MEDS: PANTOPRAZOLE 40MG TABLET PO SCH (17:27)
--- NOTE | 2023-02-26 17:47 | RAD REPORT ---
EXAM DESCRIPTION: [place] Single View02/26/2023 3:40 pm CLINICAL HISTORY: New admit COMPARISON: Chest Single View dated 01/07/2023; Chest Abdomen Pelvis W Cont dated 01/10/2023; Outpt Marlene st Pa/Lat (2 Views) dated 06/25/2017 TECHNIQUE: Portable AP view of the chest. FINDINGS: Volume loss within the left hemithorax again seen, streaky and patchy opacification at the left base, suggestive of atelectasis, stable. No developing left mid lung patchy airspace opacities. A degree of dextroconvex upper thoracic curvature somewhat limits evaluation. No pneumothorax or ef fusion. The cardiomediastinal contours are unremarkable. IMPRESSION: Developing left midlung airspace opacities, raises concern for pneumonia.
[2023-02-26 18:16] LABS: Platelet Estimate ADEQ; White Blood Cell Scan OK (OK)
[2023-02-26 18:18] LABS: Anisocytosis 2+; Blood Morphology Comment NOTED (NOT SEEN); Hypochromasia 1+; Polychromasia SLIGHT
[2023-02-26] MEDS: DOCUSATE NA/SENNA CONC 1 TAB PO SCH (20:07)
[2023-02-26] MEDS: FERROUS SULFATE 325 MG TAB PO SCH (20:07)
[2023-02-26] MEDS: MORPHINE *EXTENDED RELEASE* 15 MG TAB PO SCH (20:07)
[2023-02-26] MEDS: methocarbamoL 750 MG TAB PO SCH (20:07)
[2023-02-26] MEDS: GABAPENTIN 300 MG CAP PO SCH (20:08)
--- NOTE | 2023-02-26 20:34 | EKG ---
Test Date: 2023-02-26 Test Time: 12:59:42 Clinical Laboratory Technologist: BUSHRA MEASUREMENT RESULTS: Intervals: Rate: 85 PA: 152 QRSD: 106 QT: 386 QTc: 459 Drewsey: P: 74 PA: 152 QRS: 68 T: 56 INTERPRETIVE STATEMENTS: Normal sinus rhythm Nonspecific ST abnormality Abnormal ECG Compared to ECG 01/07/2023 10:41:57 ST (T wave) deviation now present Sinus tachycardia no longer present Electronically Signed On 02-26-23 20:32:33 CDT by Abraham Smith
[2023-02-26] MEDS: AMITRIPTYLINE 50 MG TAB PO SCH (21:00)
[2023-02-27] MEDS: NA CHLORIDE 0.9% 1,000 ML IV SCH ×2 (01:09→14:06)
[2023-02-27] MEDS: POLYETHYL GLY 3350 17 GM/DOSE PO SCH (08:37)
[2023-02-27] MEDS: MAGNESIUM OXIDE 400 MG TAB PO SCH (08:37)
[2023-02-27] MEDS: MORPHINE *EXTENDED RELEASE* 15 MG TAB PO SCH ×2 (08:37→19:56)
[2023-02-27] MEDS: PANTOPRAZOLE 40MG TABLET PO SCH ×2 (08:37→14:06)
[2023-02-27] MEDS: DOCUSATE NA/SENNA CONC 1 TAB PO SCH ×2 (08:38→19:56)
[2023-02-27] MEDS: FERROUS SULFATE 325 MG TAB PO SCH ×3 (08:38→20:02)
[2023-02-27] MEDS: GABAPENTIN 300 MG CAP PO SCH ×3 (08:38→19:56)
[2023-02-27] MEDS: methocarbamoL 750 MG TAB PO SCH ×2 (08:38→19:56)
--- NOTE | 2023-02-27 11:19 | CON ---
Date of Consultation: 02/26/2023 Reason For Consultation: Advanced rectal cancer. History Of Present Illness: The patient is a 73-year-old gentleman, presented to my office yesterday with a need for a Port-A-Cath. I evaluated him. He was hypertensive and tachycardic in my office. He was in some distress. Was complaining of loose bowels, unable to control his stool, weakness, bl oating, unable to keep. The patient was then advised to go to the hospital and was admitted under e hospice care. At this point, I went through his CAT scan and all of his history and his pathology report and then determined that the patient would be best served at a tertiary care hospital. The daniele downey has a PE. He has advanced cancer invading the sacrum and the coccyx. This is locally advanced . There is no evidence of distant disease on the CT of the chest and abdomen. Probably, this cancer is unresectable, but he would benefit from chemotherapy and radiation therapy and he also would need a Sherie filter for his PE as well as a Port-A-Cath for chemotherapy and a loop colostomy. So b ased on all of the patient's needs and his critical status and colon being large with partial obstruc tion present on the CAT scan, I felt it would be best to transfer him to a tertiary care. I contacte sagrario Guerra at [facility], went over the case with him in detail, he agreed to accept the patie nt. The patient is awake, alert. Pain is a little bit better. His anus area still is raw and dimas . No fever or chills. No sore throat, runny nose, cough, headaches, or dizziness. No chest pain. Review of Systems: Otherwise unremarkable. Past Medical History: Significant for lymphoma, chronic back pain. Past Surgical History: Back surgery, skin cancer removal, lung surgery, appendectomy, lens implants in both eyes, bilateral knee surgeries. Allergies: INCLUDE HYDROMORPHONE. Social History: The patient does not smoke at this time and does not drink alcohol. Family History: Skin cancer in the father. Physical Examination: His vital signs currently are stable. Blood pressure is 106/52. Laboratory Data: Reviewed. White count is 6.7, H and H are 8.7 and 27.8, platelets of 378. INR is 1.45. Chemistry reviewed. Chest x-ray reviewed, it shows developing left mid lung air space opaciti es concerning for pneumonia. EKG shows normal sinus rhythm, nonspecific ST abnormality. CT of the a bdomen and pelvis and path report were reviewed as per HPI. Assessment: Locally advanced rectal cancer with pulmonary embolism in an emaciated partially obstruc kem patient. Recommendations: We will transfer the patient to [facility], [facility], and a loop colostomy at the same time. He is high risk for anesthesia, so doing sep arate anesthesia would increase the risk for this patient. The patient has been accepted and is awai ting a bed placement at [facility]. /MODL Voice ID: [id number] Report ID: [id number]
--- NOTE | 2023-02-27 14:12 | P.PN ---
Subjective Date of Service: 02/27/23 Chief Complaint: Colon cancer Patient has no new complain except intermittent pain. Physical Examination - Vital Signs Temperature: 98.3 F Blood Pressure: 99/52 Pulse: 78 Respirations: 16 Pulse Ox (%): 98 - Physical Exam General: Alert, In no apparent distress, Oriented x3 HEENT: Mucous membr. moist/pink Neck: JVD not distended Respiratory: Clear to auscultation bilaterally, Normal air movement Cardiovascular: No edema, Regular rate/rhythm, Normal S1 S2 Gastrointestinal: Normal bowel sounds, Soft and benign, Non-distended, No tenderness Musculoskeletal: No swelling Integumentary: No rashes, No cyanosis Neurological: Normal strength at 5/5 x4 extr - Studies Laboratory Data (last 24 hrs) 02/26/23 13:33: PT 15.9 H, INR 1.45, APTT 38.3 H 02/26/23 13:33: Sodium 136, Potassium 4.1, BUN 15, Creatinine 0.80, Glucose 89 02/26/23 13:33: WBC 6.70, Hgb 8.7 L, Hct 27.8 L, Plt Count 378 Assessment And Plan - Current Problems (Diagnosis) (1) Colon cancer Current Visit: Yes Status: Acute (2) History of lymphoma Current Visit: Yes Status: Acute (3) Chronic pain Current Visit: Yes Status: Acute - Plan Patient seen by Dr. Fuller who recommend transfer to a tertiary center for laparoscopically perform colostomy which need to be done by colorectal surgeon and port placement. Transfer to [facility] initiated pending bed availability. Accepting physician is Dr. Guerra. Pain management with home dose oral morphine. IV morphine as needed for breakthrough pain. Monitor H&H and transfuse as needed for hemoglobin less than 8 Hold Eliquis for impending procedure and bridged with full dose Lovenox. Continue other home medications
[2023-02-27] MEDS ORDERED: ENOXAPARIN 80 MG/0.8 ML SQ SCH (14:14)
[2023-02-27 16:24] LABS: Absolute Lymphocytes (CBC) 1.1 K/uL (0.7-4.9); Hematocrit 26.9 % (39.6-49.0); Lymphocytes % 18.2 % (15.3-44.8); MCV 80.1 fL (80-100); MPV 6.5 fL (7.6-11.3); RBC Red Blood Cell Count 3.35 M/uL (4.33-5.43)
[2023-02-27] MEDS: AMITRIPTYLINE 50 MG TAB PO SCH (21:00)
[2023-02-28] MEDS: LIDOCAINE 5% OINT 30 GM TUBE TOP SCH ×5 (00:33→23:29)
[2023-02-28] MEDS: NA CHLORIDE 0.9% 1,000 ML IV SCH ×2 (03:02→16:22)
[2023-02-28] MEDS: GABAPENTIN 300 MG CAP PO SCH ×3 (08:38→19:18)
[2023-02-28] MEDS: PANTOPRAZOLE 40MG TABLET PO SCH ×2 (08:38→15:19)
[2023-02-28] MEDS: DOCUSATE NA/SENNA CONC 1 TAB PO SCH ×2 (08:38→19:18)
[2023-02-28] MEDS: FERROUS SULFATE 325 MG TAB PO SCH ×3 (08:38→19:18)
[2023-02-28] MEDS: MORPHINE *EXTENDED RELEASE* 15 MG TAB PO SCH ×2 (08:38→19:18)
[2023-02-28] MEDS: POLYETHYL GLY 3350 17 GM/DOSE PO SCH (08:39)
[2023-02-28] MEDS: MAGNESIUM OXIDE 400 MG TAB PO SCH (08:42)
[2023-02-28] MEDS: methocarbamoL 750 MG TAB PO SCH ×2 (08:44→19:18)
--- NOTE | 2023-02-28 15:09 | P.PN ---
Subjective Date of Service: 02/28/23 Chief Complaint: Colon cancer Patient reports passing bloody stools yesterday. He denies abdominal pain. Physical Examination - Vital Signs Temperature: 97.9 F Blood Pressure: 108/55 Pulse: 79 Respirations: 20 Pulse Ox (%): 97 - Physical Exam General: Alert, In no apparent distress, Cachectic HEENT: Mucous membr. moist/pink Neck: Supple, JVD not distended Respiratory: Clear to auscultation bilaterally, Normal air movement Cardiovascular: No edema, Regular rate/rhythm, Normal S1 S2 Gastrointestinal: Normal bowel sounds, Soft and benign, Non-distended, No tenderness Musculoskeletal: No swelling Integumentary: No rashes, No cyanosis Neurological: Normal strength at 5/5 x4 extr - Studies Laboratory Data (last 24 hrs) 02/27/23 16:08: Sodium 138, Potassium 4.0, BUN 9, Creatinine 0.80, Glucose 122 H 02/27/23 16:08: WBC 6.20, Hgb 8.6 L, Hct 26.9 L, Plt Count 408 H Assessment And Plan - Current Problems (Diagnosis) (1) Colon cancer Current Visit: Yes Status: Acute (2) History of lymphoma Current Visit: Yes Status: Acute (3) Chronic pain Current Visit: Yes Status: Acute - Plan Patient seen by Dr. Fuller who recommend transfer to a tertiary center for laparoscopically perform colostomy which need to be done by colorectal surgeon and port placement. Transfer to [facility] initiated pending bed availability. Accepting physician is Dr. Guerra. Pain management with home dose oral morphine. IV morphine as needed for breakthrough pain. Monitor H&H and transfuse as needed for hemoglobin less than 8 Eliquis is on hold due to lower GI bleeding likely related to the colon cancer. Patient will need an IVC filter. Continue other home medications
[2023-02-28 16:31] LABS: Urine Bilirubin NEGATIVE (Negative); Urine Blood Negative (Negative); Urine Clarity Clear (Clear); Urine Color Light-Yellow (Yellow); Urine Glucose NEGATIVE (Negative); Urine Protein NEGATIVE (Negative); Urine Urobilinogen Normal (Normal)
[2023-02-28 20:36] VITALS: O2SAT 98
[2023-02-28] MEDS: AMITRIPTYLINE 50 MG TAB PO SCH (21:00)
[2023-02-28 21:20] VITALS: BP 123/63; TEMP 97.2
== END 2023-03-01 00:05 | disposition short-term general hospital (02) | DRG 375 ==
LOC: 4TH 11:00
PROVIDERS: ADMIT Internal Medicine; ATTEND Internal Medicine
DX: C18.9 Malignant neoplasm of colon, unspecified (principal); K92.2 Gastrointestinal hemorrhage, unspecified; R64 Cachexia; G89.29 Other chronic pain; M54.9 Dorsalgia, unspecified; Z93.3 Colostomy status; Z88.5 Allergy status to narcotic agent; Z79.01 Long term (current) use of anticoagulants; Z68.20 Body mass index [BMI] 20.0-20.9, adult; Z85.72 Personal history of non-Hodgkin lymphomas; Z90.49 Acquired absence of other specified parts of digestive tract; Z85.828 Personal history of other malignant neoplasm of skin
CPT/HCPCS: 36415; 71045; 77014; 77334; 80048; 81003; 85025; 85610; 85730; 93005; J0690; J7030

== ENCOUNTER 2023-05-21 08:51 | Emergency (ER) | payer OTHER ==
--- OUTSIDE RECORDS SUMMARY | 2023-05-21 08:55 | XMS REPORT | Continuity of Care Document ---
:1950 Author Organization [facility] t Address [address] [place] [address] [place] [id number] Care Team Providers Name Role Phone JATINDER SYED Attending Clinician Unavailable SUNNY PHELAN Attending Clinician Unavailable KEVIN NARAYANAN Attending Clinician Unavailable VLADIMIR TOLENTINO Attending Clinician Unavailable Victor Manuel PEREA, Ehsan Attending Clinician Abraham Conde MD Attending Clinician [phone] Daphne Florentino CRNA Attending Clinician Doctor Unassigned, [place] Attending Clinician Unavailable Only, Adc Test Attending Clinician Unavailable Jatinder Syed MD Attending Clinician Pob, Adc Lab Main Attending Clinician Unavailable JATINDER SYED Admitting Clinician Unavailable EVERARDO [place] Admitting Clinician Unavailable HAWA RUGGIERO Admitting Clinician Unavailable Payers Payer Name Policy Type Policy Number Effective Date Expiration Date Adriel robertson MEDICARE PART A [id number] 2002 \\T\\ B 00:00:00 [employer] INDEMNITY [id number] 2013 00:00:00 [employer] MEDICARE O [id number] 2022 POS PPO 00:00:00 Problems Condition Condition Condition Status Onset Resolution Last Treating Co mments Source Name Details Category Date Date Treatment Clinician Date Rectal Rectal Disease [facility] Allergies, Adverse Reactions, Alerts Allergy Allergy Status Severity Reaction(s) Onset Inactive Treating Comm ents Source Name Type Date Date Clinician HYDROMOR Allergy Active Other [facility] Hydromor Propensi Active Other (See psychosis [facility] phone ty to Comments) 01[facility]11 [facility] adverse 00:00: Medical reaction 00 [facility] Hydromor Drug Active Hallucinatio Patient U nivers phone Allergy ns 05-20 states ity of 00:00: that it [place] 00 makes him Medical "nuts" Branch HYDROMOR DRUG Active Med Anxiety Univers PHONE INGREDI 05-20 ity of 00:00: [place] 00 Medical Branch NO KNOWN Allergy Active [facility] ALLERGIE S NO KNOWN Drug Active Univers ALLERGIE Class ity of S [facility] Family History Family Member Diagnosis Comments Start Date Stop Date Source Natural mother Dementia [facility] Social History Social Habit Start Date Stop Date Quantity Comments Source History of tobacco Cigarette Smoker [facility] use [facility] Exposure to 2023-01-06 2023-01-[address] [facility] SARS-CoV-2 (event) 00:00:00 10:33:00 [facility] Alcohol intake 2023-01-16 2023-01-16 Ex-drinker [facility] 00:00:00 00:00:00 (finding) [facility] Cigarettes smoked 2023-01-11 2023-01-[address] [facility] current (pack per 00:00:00 00:00:00 Medical Center day) - Reported Cigarette 2023-01-11 2023-01-[address] [facility] pack-years 00:00:00 00:00:00 [facility] Tobacco use and 2023-01-11 2023-01-11 Smokeless [address] [facility] exposure 00:00:00 00:00:00 non-user [facility] Alcohol Comment 2023-01-11 2023-01-11 has a sip of [facility] 00:00:00 00:00:[address] month Sex Assigned At [address] [facility] 00:[facility]00 [facility]00 [facility] Smoking Status Start Date Stop Date Source Unknown if ever smoked [facility] [place] [facility] Ex-smoker 2023-01-11 00:00:00 2023-01-11 00:00:[address] [facility] Never smoker [facility] Medications Ordered Filled Start Stop Current Ordering Indication Dosage Frequency Signature Comments Components Source Medication Medication Date Date Medication? Clinician (SIG) Name Name morphine 2022-0 Yes 30mg Q.5D Take [address] [...] (750 mg total) before bedtime. morphine ER 2020-0 Yes 30mg Take 30 mg Univers 30 mg 12 hr 9-21 by mouth ity of tablet 13:48: every 12 [place] [address] (twelve) Medical hours. Branch methocarbam 2020-0 Yes 750mg Take 750 U nivers oL 9-21 mg by ity of (ROBAXIN-75 13:48: mouth 2 Bill as 0) 750 mg 37 (two) Medical tablet times [place] daily. amitriptyli 2020-0 Yes 150mg Take 150 U nivers ne 150 mg 9-21 mg by ity of tablet 13:48: mouth at [place] [address] bedtime. Medical Branch morphine ER 2020-0 Yes 30mg Take 30 mg Univers 30 mg 12 hr 9-18 by mouth ity of tablet 20:52: every 12 [place] 05 (twelve) Medical hours. Branch methocarbam 2020-0 Yes 750mg Take 750 U nivers oL 9-18 mg by ity of (ROBAXIN-75 20:52: mouth 2 Bill as 0) 750 mg 05 (two) Medical tablet times [place] daily. amitriptyli 2020-0 Yes 150mg Take 150 U nivers ne 150 mg 9-18 mg by ity of tablet 20:52: mouth at [place] 05 bedtime. Medical Branch Vital Signs Vital Name Observation Time Observation Value Comments Source HEIGHT 2023-03-01 01:00:00 190.5 cm WEIGHT 2023-03-01 01:00:00 70.852 kg HEIGHT 2023-03-01 01:00:00 190.5 cm WEIGHT 2023-03-01 01:00:00 70.852 kg HEIGHT 2023-01-11 19:10:00 190.5 cm WEIGHT 2023-01-11 19:10:00 76.204 kg HEIGHT 2023-01-11 19:10:00 190.5 cm WEIGHT 2023-01-11 19:10:00 76.204 kg Systolic blood 2023-01-17 07:50:00 136 mm[Hg] [facility] Diastolic blood 2023-01-17 07:50:00 59 mm[Hg] [facility] Body temperature 2023-01-17 07:50:00 37 Marlena [facility] Heart rate 2023-01-17 07:41:00 92 /min [facility] Respiratory rate 2023-01-17 07:41:00 21 /min [facility] Oxygen saturation in 2023-01-17 07:41:00 95 /min [facility] Arterial blood by Medical Ce nter Pulse oximetry Body height 2023-01-11 19:10:00 190.5 cm [facility] Body weight 2023-01-11 19:10:00 76.204 kg [facility] BMI 2023-01-11 19:10:00 21.00 kg/m2 [facility] Procedures Procedure Date / Time Performing Clinician Source Performed PREPARE LEUKO-REDUCED RBC 2023-01-17 06:46:00 Elmer López CH, I [facility] CBC (HEMOGRAM ONLY) 2023-01-17 05:37:00 Elmer López [facility] PROTHROMBIN TIME/INR 2023-01-17 05:37:00 Elmer López [facility] FIBRINOGEN 2023-01-17 05:37:00 Elmer López [facility] APTT 2023-01-17 05:37:00 Ravi Silva [facility] CBC (HEMOGRAM ONLY) 2023-01-17 03:50:00 [facility] BASIC METABOLIC PANEL 2023-01-17 03:50:00 [facility] HEPATIC FUNCTION PANEL 2023-01-17 03:50:00 [facility] MAGNESIUM 2023-01-17 03:50:00 [facility] APTT 2023-01-16 23:34:00 [facility] LACTIC ACID, VENOUS 2023-01-16 21:39:00 [facility] CALCIUM, IONIZED 2023-01-16 21:39:00 [facility] SARS-COV2/RT-PCR ([facility] & 2023-01-16 21:39:00 AdhiPatsy [facility] REF LABS) [facility] CTA CHEST FOR PULMONARY 2023-01-16 19:00:00 Jeramy Silvachesterfieldmikie [facility] EMBOLUS [facility] B-TYPE NATRIURETIC FACTOR 2023-01-16 18:05:00 Betito Zepeda [facility] (BNP) [facility] HIGH SENSITIVITY TROPONIN 2023-01-16 18:05:00 Betito Zepeda I [facility] I [facility] XR CHEST 1 VIEW PORTABLE / 2023-01-16 17:31:00 Ravi Silva [facility] BEDSIDE [facility] BLOOD GAS, ARTERIAL 2023-01-16 17:08:00 Ravi Silva [facility] APTT 2023-01-16 16:54:00 Jeramy Silvachesterfieldmikie [facility] REPORT OF PROCEDURE - 2023-01-16 12:10:02 Abraham Conde [facility] ENDOSCOPY URL [facility] COLONOSCOPY, WITH 2023-01-16 11:17:00 Mansour, [facility] POLYPECTOMY [facility] COLONOSCOPY, WITH BIOPSY 2023-01-16 11:17:00 [facility] BASIC METABOLIC PANEL 2023-01-16 03:23:00 [facility] HEPATIC FUNCTION PANEL 2023-01-16 03:23:00 [facility] MAGNESIUM 2023-01-16 03:23:00 [facility] CBC (HEMOGRAM ONLY) 2023-01-16 03:22:00 [facility] TYPE AND SCREEN, AUTOMATED 2023-01-16 03:22:00 [facility] XR ABDOMEN/KUB 1 VIEW 2023-01-15 22:13:00 [facility] XR ABDOMEN/KUB 1 VIEW 2023-01-15 20:56:00 [facility] XR ABDOMEN/KUB 1 VIEW 2023-01-15 14:26:00 [facility] CBC (HEMOGRAM ONLY) 2023-01-15 04:43:00 [facility] BASIC METABOLIC PANEL 2023-01-15 04:43:00 [facility] HEPATIC FUNCTION PANEL 2023-01-15 04:43:00 [facility] MAGNESIUM 2023-01-15 04:43:00 [facility] PHOSPHORUS 2023-01-15 04:43:00 [facility] PT/APTT 2023-01-15 04:43:00 [facility] CBC (HEMOGRAM ONLY) 2023-01-14 05:11:00 [facility] BASIC METABOLIC PANEL 2023-01-14 05:11:00 [facility] CBC (HEMOGRAM ONLY) 2023-01-13 04:11:00 [facility] BASIC METABOLIC PANEL 2023-01-13 04:11:00 [facility] IRON, TIBC, % SAT. 2023-01-12 06:01:00 Marcela Hooker [facility] (WITHOUT FERRITIN) [facility] CARCINOEM[facility]YON[facility] ANTIGEN 2023-01-12 06:01:00 Marcela Hooker [facility] (CEA) [facility] PREALBUMIN 2023-01-12 06:01:00 [facility]OL[facility] PANEL 2023-01-12 06:01:00 [facility] MAGNESIUM 2023-01-12 06:01:00 [facility] CBC (HEMOGRAM ONLY) 2023-01-12 06:01:00 [facility] FERRITIN 2023-01-12 06:01:00 [facility] CHEST 1 VIEW PORTABLE / 2023-01-11 20:36:00 Matthew Antonio [facility] CBC W/PLT COUNT & AUTO 2023-01-11 17:21:00 [facility] DIFFERENTIAL [facility] CBC W/PLT COUNT & AUTO 2023-01-11 17:21:00 [facility] DIFFERENTIAL [facility] COMPREHENSIVE METABOLIC 2023-01-11 17:21:00 [facility] PANEL [facility] MAGNESIUM 2023-01-11 17:21:00 [facility] PROTHROMBIN TIME/INR 2023-01-11 17:21:00 [facility] DAY SURGERY - ADC 2020-05-23 05:01:00 Doctor Unassigned, No [facility] Branch CBC WITH DIFF 2020-05-19 15:02:00 Jatinder Syed [facility] PROTHROMBIN TIME / INR 2020-05-19 15:02:00 [facility] 2020-05-19 15:02:00 Jatinder Syed [facility] ADC OR CLC ONLY - PLATELET 2020-05-19 15:02:00 Jatinder Syed [facility] FUNCTION TEST [facility] ASSIGNMENT OF BENEFITS 2020-05-19 14:45:32 Doctor Unassigned, No [facility] Name [facility] Plan of Care Planned Activity Planned Date Details Comments Source Future Scheduled 2033-01-16 Screening for malignant [facility] Test 00:00:00 neoplasm of colon Medical Ce nter (procedure) [code = 633156797] Future Scheduled 2033-01-16 Screening for malignant [facility] Test 00:00:00 neoplasm of colon Medical Ce nter (procedure) [code = 107710526] Future Scheduled 2024-01-[address] [...] screening Medical C enter (procedure) [code = 130408369] Future Scheduled 2016-02-18 PNEUMOCOCCAL 65+ YRS (1 [...] [facility] Test 00:00:00 [code = CT Colonography [facility] (combo)] Future Scheduled 1950 Screening for malignant [facility] Test 00:00:00 neoplasm of colon Medical Ce nter (procedure) [code = 597854487] Future Scheduled 1950 Screening for malignant [facility] Test 00:00:00 neoplasm of colon Medical Ce nter (procedure) [code = 649848152] Future Scheduled 1950 Sigmoidoscopy [code = [facility] Test 00:00:00 Sigmoidoscopy] Medical Luh saleem Encounters Start End Encounter Admission Attending Care Care Encounter Source Date/Time Date/Time Type Type Clinicians Facility Department ID 2021-06-30 Outpatient R ANA SYED [id number] [facility] 18:21:[facility] 2023-03-01 2023-03-03 [facility] General Med [id number] [facility] 00:59:00 15:29:00 [facility] 2023-03-02 2023-03-02 Inpatient UR [facility] [id number] [facility] 19:18:10 00:00:00 [facility] 2023-03-02 2023-03-02 Inpatient UR [facility] [id number] [facility] 19:18:03 00:00:00 [facility] 2023-01-11 2023-01-22 Inpatient UR JESSJeanie VLADIMIR [facility] Surgery [id number] [facility] 16:19:00 18:31:00 2023-01-16 2023-01-16 Anesthesia Victor Manuel, [facility] [id number] [facility] 11:17:00 12:28:[address] [facility] 2023-01-16 2023-01-16 Surgery Elton, [facility] [id number] 10:00:00 11:00:00 Abraham [facility] 2023-01-16 2023-01-16 Travel [facility] [id number] [facility] 00[facility]00 [facility] 2023-01-15 2023-01-15 Anesthesia Daphne Florentino [facility] [id number] [facility] 12:27:39 12:27:39 Event [facility] 2020-05-23 2020-05-23 Orders Doctor WILMER [id number] [facility] 00:00:00 00:00:00 Only Unassigned, BECKY 350.1.13.10 ity of [facility] 4.2.7.2.686 Bill as [phone] [place] 009 Branch 2020-05-20 2020-05-20 Laboratory Only, Adc Test [facility] [id number]. [id number] Univers 15:56:50 16:11:50 Only Jatinder Syed 350.1.13.1 0 ity of [place] 4.2.7.2.686 [place] [facility] [phone] [place] 353 Branch 2020-05-20 2020-05-20 Outpatient R KUNAL [facility] [id number] Univers 12:45:00 12:45:00 JATINDER ity of [facility] 2020-05-19 2020-05-19 Maintenance Specialist Jackson Wade Lab Main [facility] 1.2.8 [id number] [id number] Univers 09:40:22 09:55:22 Visit Jatinder Syed 350.1.13.1 0 ity of [place] 4.2.7.2.686 [place] [facility] [phone] [place] [address] [facility] 2020-05-19 2020-05-19 Outpatient R KUNAL [facility] [id number] Univers 09:30:00 09:30:00 JATINDER ity of [facility] 2020-05-19 2020-05-19 Orders Doctor WILMER [id number] Univers 00:00:00 00:00:00 Only Unassigned, BECKY 350.1.13.10 ity of [place] [facility] 4.2.7.2.686 Bill as [phone] [address] Results Test Description Test Time Test Comments Results Result [facility] e Comments TISSUE EXAM 2023-03-02 Surgical Pathology Report 4 Case: [id number] 12:18:39 Authorizing Provider: Abraham Conde MD Collected: 01/16/2023 11:43 AM Ordering Location: [address] Received: 01/16/2023 01:43 PM Service Pathologist: Mario Curtis MD Specimens: A) - Polyp, Colon - Cecum, via cold snare B) - Rectal, rectal mass biopsy 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.Please see attached document for detailed report.Addendum electronically signed by Mario Curtis MD on 03/15/2023 at 12:18 PMMolecular genetics performed and interpreted at [employer].KEENAN/SILAS panel.Result summary:SNVs/Indels: KRAS [id number] negatives: No alterations detected in the following genes: BRAF, HRAS, NRAS.Please see the scanned report for more details.Addendum electronically signed by Neo Pearson MD on 03/07/2023 at 11:30 AMPart B: Immunohistochemistry (IHC) Testing for Mismatch Repair (MMR) Proteins MLH1: Punctate nuclear expression (interpreted as loss of nuclear expression)PMS2: Loss of nuclear expressionMSH2: Intact nuclear expressionMSH6: Intact nuclear expression Background nonneoplastic tissue/internal control with intact nuclear expression IHC Interpretation: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 Reference: Punctate MLH1 mismatch repair immunostaining in colorectal cancer. Histopathology 2019, 74, 335-143 Dr. Narayanan concurs with the above diagnosis.Addendum electronically signed by Mario Curtis MD on 01/21/2023 at 2:36 PMA. CECUM, POLYP, COLD SNARE - TUBULAR ADENOMA.B. RECTUM, MASS, BIOPSY - INVASIVE MODERATELY DIFFERENTIATED ADENOCARCINOMA. Signing Pathologist Direct Phone Line: [phone] signed by Mario Curtis MD on 01/17/2023 at 9:39 AMMismatch repair protein status will be reported in an addendum.Results communicated to Dr. Conde via secure text message on 01/17/2023 at 9:37 AM.47664 x 2, 03006, 11111 x 3AnemiaA. Polyp, Colon - CecumReceived in formalin labeled with the patient's name, medical record number and "cecum polyp" are multiple webb-yellow to webb-brown polypoid fragments ranging in size from 0.1-0 1.3 cm, which are submitted in toto in A1.B. RectalReceived in formalin labeled with the patient's name, medical record number and "rectal" are multiple webb-white to webb-red soft tissue fragments ranging in size from 0.1-0.5 cm, which are submitted in toto in B1.Alyx BanksPerformed.The interpretation of this case included the use of immunohistochemistry or special stains.Control Slides Examined: In-house known positive controls were evaluated along with the test tissue. These control slides run alongside of the patients sample show appropriate staining. Internal positive and negative controls when available are evaluated Immunohistochemistry technical testing was performed at [facility], Pathology Laboratory where it was developed and its performance characteristics were determined. It has not been cleared or approved by the U.S. Food and Drug Administration. The FDA has determined that such clearance or approval is not necessary. The test is used for clinical purposes. It should not be regarded as investigational or for research. This laboratory is certified under the Clinical Laboratory Improvement Amendments of 1988 (CLIA-88) as qualified to perform high complexity clinical laboratory testing. CT ABDOMEN/PELVIS WITH & WITHOUT IV 3 CONTRAST 11:41:21 [facility] 1950 Sex: M CT Chest with contrast; CT abdomen and pelvis without and with contrastHistory:Rectal adenocarcinomaComparison:Technique: serial axial imaging was performed without and subsequentlyfollowing up to 100cc of non ionic iodinated intravenous contrast as perdepartmental protocol. Multiplanar images are reconstructed andreviewed when indicated. This CT examination is performed using one or more of the following dosereduction techniques:Automated exposure control, adjustment of the mA and /or kV according topatient size, and/or use of iterative reconstruction technique.Findings:No mediastinal or hilar lymphadenopathy. Normal size heart. No pericardial effusion. No thoracic aortic aneurysm or dissection. No central pulmonaryarterial filling defect. Patent central airways. There is moderate generalized volume losswithin the left lung, with areas of pleural calcification and a chronicappearing trace left pleural effusion. There are also calcifiedgranulomata throughout the left lung, which are consistent with previousgranulomatous disease. Multifocal scarring is present throughout theleft lung. Interval development of subcentimeter right lower lobepulmonary nodules which are best seen on axial lung window images 43 and71. The larger measures 7 mm in size. Lungs are otherwise clear.Coarse calcifications in the pancreatic head, suggestive of priorpancreatitis. Pancreas and spleen are otherwise unremarkable. Unremarkable appearance of liver and gallbladder. Unremarkable appearance of the adrenal glands. No hydronephrosis orsuspicious renal masses. There are multiple bilateral renal cysts whichmeasure up to 3.6 cm in size and require no further imaging follow-up. .Interval increase in size of the primary, locally invasive rectal mass.For example, the component which invades the adjacent sacrum currentlymeasures 7.3 x 6.0 cm in the axial plane, previously 5.8 x 4.8 cm. There is significant stool within the upstream colon, suggesting atleast partial obstruction. This finding is unchanged. A left perirectal lymph node on axial image 110 has increased in size,now measuring 1.9 cm in long axis dimension, previously 1.2 cm. No abdominal aortic aneurysm. No aggressive osseous lesion. Mild chronic appearing L2 compressiondeformity.IMPRE SSION:Impression:1. Locally invasive primary malignant rectal mass has increased in size.Significant stool within the upstream colon, suggesting at least partialobstruction.2. Interval increase in size of left perirectal lymph node. Intervaldevelopment of 2 subcentimeter nodules within the right lower lobe.These findings are concerning for metastatic disease. Electronically Signed By: Sagar Barboza MD03/04/2023 11:43 CDTWorkstation Name: [id number] CT CHEST WITH IV 2023-03- CONTRAST 3 11:41:21 [facility] 1950 Sex: M CT Chest with contrast; CT abdomen and pelvis without and with contrastHistory:Rectal adenocarcinomaComparison:Technique: serial axial imaging was performed without and subsequentlyfollowing up to 100cc of non ionic iodinated intravenous contrast as perdepartmental protocol. Multiplanar images are reconstructed andreviewed when indicated. This CT examination is performed using one or more of the following dosereduction techniques:Automated exposure control, adjustment of the mA and /or kV according topatient size, and/or use of iterative reconstruction technique.Findings:No mediastinal or hilar lymphadenopathy. Normal size heart. No pericardial effusion. No thoracic aortic aneurysm or dissection. No central pulmonaryarterial filling defect. Patent central airways. There is moderate generalized volume losswithin the left lung, with areas of pleural calcification and a chronicappearing trace left pleural effusion. There are also calcifiedgranulomata throughout the left lung, which are consistent with previousgranulomatous disease. Multifocal scarring is present throughout theleft lung. Interval development of subcentimeter right lower lobepulmonary nodules which are best seen on axial lung window images 43 and71. The larger measures 7 mm in size. Lungs are otherwise clear.Coarse calcifications in the pancreatic head, suggestive of priorpancreatitis. Pancreas and spleen are otherwise unremarkable. Unremarkable appearance of liver and gallbladder. Unremarkable appearance of the adrenal glands. No hydronephrosis orsuspicious renal masses. There are multiple bilateral renal cysts whichmeasure up to 3.6 cm in size and require no further imaging follow-up. .Interval increase in size of the primary, locally invasive rectal mass.For example, the component which invades the adjacent sacrum currentlymeasures 7.3 x 6.0 cm in the axial plane, previously 5.8 x 4.8 cm. There is significant stool within the upstream colon, suggesting atleast partial obstruction. This finding is unchanged. A left perirectal lymph node on axial image 110 has increased in size,now measuring 1.9 cm in long axis dimension, previously 1.2 cm. No abdominal aortic aneurysm. No aggressive osseous lesion. Mild chronic appearing L2 compressiondeformity.IMPRE SSION:Impression:1. Locally invasive primary malignant rectal mass has increased in size.Significant stool within the upstream colon, suggesting at least partialobstruction.2. Interval increase in size of left perirectal lymph node. Intervaldevelopment of 2 subcentimeter nodules within the right lower lobe.These findings are concerning for metastatic disease. Electronically Signed By: Sagar Barboza MD03/04/2023 11:43 CDTWorkstation Name: [id number] CARCINOEMBRYONIC ANTIGEN (CEA) 2023-03-02 14:36:24 Test Item Value Reference Range Interpretation Comme nts CARCINOEMBRYONIC ANTIGEN (BEAKER) (test code = 685) 96.3 ng/mL 0. 0-5.0 H [employer] Developer ID - [id number] 07:22:23 Test Item Value Reference Range Interpretation Comments PHOSPHORUS (BEAKER) (test code = 2.9 mg/dL 2.3-4.7 604) [employer] Developer ID - MMBASIC METABOLIC [id number] 07:22:22 Test Item Value Reference Range Interpretation Comments SODIUM (BEAKER) 138 meq/L 136-145 (test code = 381) POTASSIUM 4.0 meq/L 3.5-5.1 (BEAKER) (test code = 379) CHLORIDE (BEAKER) 104 meq/L 98-107 (test code = 382) CO2 (BEAKER) 25 meq/L 22-29 (test code = 355) BLOOD UREA 6 mg/dL 7-21 L NITROGEN (BEAKER) (test code = 354) CREATININE 0.63 mg/dL 0.57-1.25 (BEAKER) (test code = 358) GLUCOSE RANDOM 104 mg/dL 70-105 (BEAKER) (test code = 652) CALCIUM (BEAKER) 8.3 mg/dL 8.4-10.2 L (test code = 697) EGFR (BEAKER) 100 Interpretatio n of eGFR (test code = [...] not appl icable for dialysis patien ts [employer] Developer ID - [id number] 07:22:22 Test Item Value Reference Range Interpretation Comments MAGNESIUM (BEAKER) (test code = 1.8 mg/dL 1.6-2.6 627) [employer] Developer ID - [id number] 07:19:59 Test Item Value Reference Range Interpretation Comments FERRITIN (BEAKER) (test code = 94.68 ng/mL 5.00-275.00 361) [employer] Developer ID - MMVITAMIN [id number] 07:19:58 Test Item Value Reference Range Interpretation Comments VITAMIN B12 (BEAKER) (test code = 477 pg/mL 213-816 774) [employer] Developer ID - MMIRON, TIBC, % SAT. (WITHOUT FERRITIN)2023-03-01 06:20:56 Test Item Value Reference Range Interpretation Comments IRON (BEAKER) (test code = 547) 22.0 ug/dL 40.0-160.0 L TOTAL IRON BINDING CAPACITY 129 ug/dL 250-450 L (BEAKER) (test code = 769) IRON % SATURATION (2) (BEAKER) 17 % 20-55 L (test code = 2590) [employer] Developer ID - ADMINCBC W/PLT COUNT & AUTO [id number] 05:17:58 Test Item Value Reference Range Interpretation Comments WHITE BLOOD CELL COUNT (BEAKER) 7.3 K/ L 3.5-10.5 (test code = 775) RED BLOOD CELL COUNT (BEAKER) 3.31 M/ L 4.63-6.08 L (test code = 761) HEMOGLOBIN (BEAKER) (test code = 8.3 GM/DL 13.7-17.5 L 410) HEMATOCRIT (BEAKER) (test code = 27.0 % 40.1-51.0 L 411) MEAN CORPUSCULAR VOLUME (BEAKER) 82 fL 79-92 (test code = 753) MEAN CORPUSCULAR HEMOGLOBIN 25.1 pg 25.7-32.2 L (BEAKER) (test code = 751) MEAN CORPUSCULAR HEMOGLOBIN CONC 30.7 GM/DL 32.3-36.5 L (BEAKER) (test code = 752) RED CELL DISTRIBUTION WIDTH 21.2 % 11.6-14.4 H (BEAKER) (test code = 412) PLATELET COUNT (BEAKER) (test 326 K/CU MM 150-450 code = 756) MEAN PLATELET VOLUME (BEAKER) 8.6 fL 9.4-12.4 L (test code = 754) NUCLEATED RED BLOOD CELLS 0 /100 WBC 0-0 (BEAKER) (test code = 413) NEUTROPHILS RELATIVE PERCENT 70 % (BEAKER) (test code = 429) LYMPHOCYTES RELATIVE PERCENT 18 % (BEAKER) (test code = 430) MONOCYTES RELATIVE PERCENT 5 % (BEAKER) (test code = 431) EOSINOPHILS RELATIVE PERCENT 7 % (BEAKER) (test code = 432) BASOPHILS RELATIVE PERCENT 1 % (BEAKER) (test code = 437) NEUTROPHILS ABSOLUTE COUNT 5.09 K/ L 1.78-5.38 (BEAKER) (test code = 670) LYMPHOCYTES ABSOLUTE COUNT 1.29 K/ L 1.32-3.57 L (BEAKER) (test code = 414) MONOCYTES ABSOLUTE COUNT (BEAKER) 0.37 K/ L 0.30-0.82 (test code = 415) EOSINOPHILS ABSOLUTE COUNT 0.51 K/ L 0.04-0.54 (BEAKER) (test code = 416) BASOPHILS ABSOLUTE COUNT (BEAKER) 0.04 K/ L 0.01-0.08 (test code = 417) IMMATURE GRANULOCYTES-RELATIVE 0.30 % 0.00-1.00 PERCENT (BEAKER) (test code = 2801) PROTHROMBIN TIME/[id number] 05:17:28 Test Item Value Reference Range Interpretation Comments PROTIME (BEAKER) (test code = 14.3 seconds 11.9-14.2 H 759) INR (BEAKER) (test code = 370) 1.18 <=5.90 RECOMMENDED COUMADIN/WARFARIN INR THERAPY RANGESSTANDARD DOSE: 2.0 - 3.0 Includes: PROPHYLAXIS for venous thrombosis, systemic embolization; TREATMENT for venous thrombosis and/or pulmonary embolus.HIGH RISK: Target INR is 2.5-3.5 for patients with mechanical heart valves.MISCELLANEOUS LAB [id number] 14:44:33 Test Item Value Reference Range Interpretation Comments SCAN RESULT (test code = 7629840) See attachment BLOOD [id number] 01:00:55 Test Item Value Reference Range Interpretation Comments CULTURE (BEAKER) (test No growth in 5 days code = 1095) BLOOD [id number] 01:00:54 Test Item Value Reference Range Interpretation Comments CULTURE (BEAKER) (test No growth in 5 days code = 1095) BASIC METABOLIC [id number] 06:10:55 Test Item Value Reference Range Interpretation [...] not appl icable for dialysis patien ts [employer] Developer ID - [id number] 06:10:55 Test Item Value Reference Range Interpretation Comments MAGNESIUM (BEAKER) (test code = 1.8 mg/dL 1.6-2.6 627) [employer] Developer ID - ADMINHEPATIC FUNCTION [id number] 06:10:55 Test Item Value Reference Range Interpretation [...] (test code = 15 U/L 6-55 347) [employer] Developer ID - ADMINCBC (HEMOGRAM ONLY)2023-01-22 05:34:34 Test [...] code = 413) RAD, ABDOMEN/KUB, 1 VIEW [id number] 17:17:00Reason for exam:->r/o bowel obstructionShould this be performed at the bedside?->Yes [facility] 1950 Sex: MFINAL [...] the right lower flank. Signed: Everett Darden Verified Date/Time: 01/21/2023 17:17:25 C METABOLIC [id number] 06:51:26 Test Item Value Reference Range Interpretation [...] not appl icable for dialysis patien ts [employer] Developer ID - [id number] 06:41:53 Test Item Value Reference Range Interpretation Comments MAGNESIUM (BEAKER) (test code = 1.8 mg/dL 1.6-2.6 627) [employer] Developer ID - MMHEPATIC FUNCTION [id number] 06:41:53 Test Item Value Reference Range Interpretation [...] (test code = 16 U/L 6-55 347) [employer] Developer ID - [id number] 05:49:09 Test Item Value Reference Range Interpretation [...] (BEAKER) (test code = 413) BASIC METABOLIC [id number] 06:02:45 Test Item Value Reference Range Interpretation [...] not appl icable for dialysis patien ts [employer] Developer ID - ADMINHEPATIC FUNCTION [id number] 06:02:09 Test Item Value Reference Range Interpretation [...] (test code = 6 U/L 6-55 347) [employer] Developer ID - [id number] 06:02:08 Test Item Value Reference Range Interpretation Comments MAGNESIUM (BEAKER) (test code = 1.9 mg/dL 1.6-2.6 627) [employer] Developer ID - [id number] 05:51:20 Test Item Value Reference Range Interpretation [...] WBC 0-0 (BEAKER) (test code = 413) [id number] 20:14:09 Test Item Value Reference Range Interpretation Comments PARTIAL THROMBOPLASTIN TIME 88.9 seconds 22.5-36.0 H (BEAKER) (test code = 760) [id number] 13:36:38 Test Item Value Reference Range Interpretation Comments PARTIAL THROMBOPLASTIN TIME 89.6 seconds 22.5-36.0 H (BEAKER) (test code = 760) BASIC METABOLIC [id number] 06:43:58 Test Item Value Reference Range Interpretation [...] rted eGFR is based on the CKD-EPI 2020 equation t hat does not use a race coefficientEsti mated GFR is not as accur ate as Creatinine Rosa rain in predicting glom erular filtration rate . Estimated GFR is not appl icable for dialysis patien ts [employer] Developer ID - [id number] 06:42:15 Test Item Value Reference Range Interpretation Comments MAGNESIUM (BEAKER) (test code = 1.7 mg/dL 1.6-2.6 627) [employer] Developer ID - MARCOHEPATIC FUNCTION [id number] 06:42:15 Test Item Value Reference Range Interpretation [...] (test code = 6 U/L 6-55 347) [employer] Developer ID - [id number] 06:35:25 Test Item Value Reference Range Interpretation [...] WBC 0-0 (BEAKER) (test code = 413) [id number] 23:57:50 Test Item Value Reference Range Interpretation Comments PARTIAL THROMBOPLASTIN TIME 65.8 seconds 22.5-36.0 H (BEAKER) (test code = 760) [id number] 17:16:13 Test Item Value Reference Range Interpretation Comments PARTIAL THROMBOPLASTIN TIME 56.9 seconds 22.5-36.0 H (BEAKER) (test code = 760) [id number] 11:08:55 Test Item Value Reference Range Interpretation Comments PARTIAL THROMBOPLASTIN TIME 43.9 seconds 22.5-36.0 H (BEAKER) (test code = 760) HEPATIC FUNCTION [id number] 04:43:44 Test Item Value Reference Range Interpretation [...] code = < U/L 6-55 L 347) [employer] Developer ID - MMBASIC METABOLIC [id number] 04:43:41 Test Item Value Reference Range Interpretation [...] not appl icable for dialysis patien ts [employer] Developer ID - [id number] 04:38:48 Test Item Value Reference Range Interpretation Comments MAGNESIUM (BEAKER) (test code = 1.9 mg/dL 1.6-2.6 627) [employer] Developer ID - MMCBC (HEMOGRAM ONLY)2023-01-18 04:15:26 Test [...] = 413) RAD, CHEST, 1 VIEW, NON [id number] 00:31:00Reason for exam:->feverShould this be performed at the bedside?->Yes [facility] 1950 Sex: [...] contours. Additional findings: None. Signed: Valente Morrison MDReport Verified Date/Time: 01/18/2023 00:31:01 URINALYSIS W/ REFLEX URINE [id number] 00:05:30 Test Item Value Reference Range Interpretation [...] = Rare 1574) SOURCE(BEAKER) (test code = 1125) [employer] Developer ID - [auto][employer] Developer ID - techCBC (HEMOGRAM ONLY)2023-01-17 23:58:22 Test [...] (BEAKER) (test code = 413) Prepare Leuko-Red [id number] 06:46:00 Test Item Value Reference Range Interpretation Comments CROSSMATCH (test code = 2264) COMPATIBLE Unit ABO (test code = A Neg 0938673) UNIT NUMBER (test code = [id number] 934-0) Status (test code = 1021973) ISSUED Blood Bank Product (test code RED BLOOD CELLS = 2263) PRODUCT CODE (test code = J9272H22 933-2) [facility] 06:16:59 Test Item Value Reference Range Interpretation Comments PARTIAL THROMBOPLASTIN TIME 93.5 seconds 22.5-36.0 H (BEAKER) (test code = 760) [id number] 06:15:39 Test Item Value Reference Range Interpretation Comments FIBRINOGEN LEVEL (BEAKER) (test 368 mg/dl 225-434 code = 658) PROTHROMBIN TIME/[id number] 06:15:13 Test Item Value Reference Range Interpretation [...] (BEAKER) (test code = 413) BASIC METABOLIC [id number] 04:52:29 Test Item Value Reference Range Interpretation [...] not appl icable for dialysis patien ts [employer] Developer ID - ADMINHEPATIC FUNCTION [id number] 04:52:24 Test Item Value Reference Range Interpretation [...] code = < U/L 6-55 L 347) [employer] Developer ID - [id number] 04:41:53 Test Item Value Reference Range Interpretation Comments MAGNESIUM (BEAKER) (test code = 1.8 mg/dL 1.6-2.6 627) [employer] Developer ID - ADMINCBC (HEMOGRAM ONLY)2023-01-17 04:11:28 Test [...] SARS-Co V-2 (test code = target nucleic 06824-3) acids are not detected in thi s [...] om SARS-CoV-2 in a nasopharyngeal swab specimen colle kem from individual s suspected of COVID-19 [...] revoked sooner. Fact Sheet for Healthcare Providers: https://www.[employer]com/Documents/Xp ert%20Xpress%20SAR S%20CoV-2/Fact%20S heets/302-3802%20S ARS-COV-2%20HEALTH CARE%20PROVIDERS%2 0FACT%20SHEET.pdf Fact Sheet for Healthcare Patients: https://www.[employer]/Documents/Xp ert%20Xpress%20SAR S%20CoV-2/Fact%20S heets/302-3801%20S ARS-COV-2%20PATIEN T%20FACT%20SHEET.p df Lab Interpretation Normal (test code = 24095-7) [facility])2023-01-17 01:10:35 Test Item Value Reference Range Interpretation Comments SARS-COV2/RT-PCR Negative Negative The SARS-Co V-2 target (test code = nucleic acids a re not 6119253) detected in thi s specimen. Negative result [...] revoked sooner. Fact Sheet for Healthcare Providers: https://www.[employer]/Documents/Xpert%20Xpress%20SARS%20CoV-2/Fact%20Sheets/302-3802%61MOZT-GMC-3%20 HEALTHCARE%20PROVIDERS%20FACT%20SHEET.pdf Fact Sheet for Healthcare Patients: https://www.[employer]/Documents/Xpert%20Xp ress%20SARS%20CoV-2/Fact%20Sheets/302-3801%22TUJP-ZMZ-2%20PATIENT%20FACT%20SHEET .pdfCT, CHEST WITH IV CONTRAST- PE TEST [id number] 00:39:00Unlisted Reason for Exam - Click Yes and Enter Reason Below->No [facility] 1950 Sex: MFINAL [...] high prob. COMPARISON: [facility] of the chest [facility] 01/10/2023 at 4:37 PM FINDINGS: LINES/TUBES: None. [...] on 01/17/2023 12:34 AM. Signed: Nicholas Delarosa [facility] Verified Date/Time: 01/17/2023 00:39:34 [id number] 00:03:02 Test Item Value Reference Range Interpretation Comments PARTIAL THROMBOPLASTIN TIME 93.6 seconds 22.5-36.0 H (BEAKER) (test code = 760) LACTIC ACID, [id number] 22:01:34 Test Item Value Reference Range Interpretation Comments LACTATE BLOOD VENOUS (2) (BEAKER) 1.09 mmol/L 0.50-2.00 (test code = 2872) [employer] Developer ID - ADMINCALCIUM, [id number] 21:47:40 Test Item Value Reference Range Interpretation Comments CALCIUM IONIZED (BEAKER) (test 1.07 mmol/L 1.12-1.27 L code = 698) PH, BLOOD (BEAKER) (test code = 7.36 1810) RAD, CHEST, 1 VIEW, NON [id number] 21:19:00Reason for exam:- >hypoxiaShould this be performed at the bedside?->Yes [facility] : 1950 Sex: [...] MDReport Verified Date/Time: 01/16/2023 21:19:45 SENSITIVITY TROPONIN [id number] 18:45:30 Test Item Value Reference Range Interpretation Comments HIGH SENSITIVITY TROPONIN I (test 8 pg/ml <=35 code = 7543672) [employer]board Developer ID - BSThe TISSUE INSERTER STAT High Sensitivity Troponin-I results should be used in conjunctionwith other diagnostic information such as ECG, clinical observations and information, and patient symptoms to aid in the diagnosis of CA.B-TYPE NATRIURETIC FACTOR (BNP)2023-01-16 18:42:45 Test Item Value Reference Range Interpretation Comments B-TYPE NATRIURETIC PEPTIDE (BEAKER) 62 pg/mL 0-100 (test code = 700) [employer] Developer ID - [id number] 17:19:24 Test Item Value Reference Range Interpretation Comments PARTIAL THROMBOPLASTIN TIME 37.7 seconds 22.5-36.0 H (BEAKER) (test code = 760) Blood gas, [id number] 17:15:01 Test Item Value Reference Range Interpretation Comments pH, Arterial (test 7.38 7.35-7.45 code = 2744-1) pCO2, Arterial (test 42 See_Comment [Autom ated message] code = 2019-8) The system [facility] generated this result transmitted ref erence range: 35 - 45 mm Hg. The reference r carina was not used to interpret this result as normal/abnor mal. pO2, Arterial (test 90 See_Comment [Automa kem message] code = 2703-7) The system [facility] generated this result transmitted ref erence [...] 8310-5) FIO2 (test code = 50 1819) [facility], [id number] 17:15:01 Test Item Value Reference Range Interpretation [...] (test code = 1819) 50.0 BASIC METABOLIC [id number] 04:34:27 Test Item Value Reference Range Interpretation [...] De scription 1092) sq m Result G1 Norm al or high >=90 G2 Mildly decreased 60-89 [...] not appl icable for dialysis patien ts [employer] Developer ID - URIAH [id number] 04:34:27 Test Item Value Reference Range Interpretation Comments MAGNESIUM (BEAKER) (test code = 2.0 mg/dL 1.6-2.6 627) [employer] Developer ID - URIAH WHEPATIC FUNCTION [id number] 04:34:27 Test Item Value Reference Range Interpretation [...] (test code = 7 U/L 6-55 347) [employer] Developer ID - URIAH WCBC (HEMOGRAM ONLY)2023-01-16 04:05:23 Test Item Value [...] code = 413) RAD, ABDOMEN/KUB, 1 VIEW [id number] 22:19:00Reason for exam:->NGT placementShould this be performed at the bedside?->Yes [facility] Jodi : 1950 Sex: MFINAL REPORT EXAM: KUB COMPARISON: January 15, 2023 CLINICAL HISTORY: NG tube placement FINDINGS: There is interval advancement of the nasogastric tube with its tip overlying the gastric fundus. Air-filled dilated small bowel loops again noted throughout the abdomen which may represent ileus versus early obstruction. The regional osseous structures are unchanged. Signed: Martin Patriciaeport Verified Date/Time: 01/15/2023 22:19:18 RAD, ABDOMEN/KUB, 1 VIEW [id number] 21:28:00Reason for exam:->NG placement (after advancement) [facility] 1950 Sex: MFINAL [...] Date/Time: 01/15/2023 21:28:23 RAD, ABDOMEN/KUB, 1 VIEW [id number] 19:47:00Reason for exam:- >Enteric tube placement verification [facility] : 1950 Sex: [...] Continuedradiographic follow-up is suggested. Signed: Nicholas Delarosa [facility] Verified Date/Time: 01/15/2023 19:47:46 HEPATIC FUNCTION [id number] 05:46:09 Test Item Value Reference Range Interpretation [...] (test code = 8 U/L 6-55 347) [employer] Developer ID Judy KRUSE WBASIC METABOLIC [id number] 05:46:08 Test Item Value Reference Range Interpretation [...] not appl icable for dialysis patien ts [employer] Developer ID Judy KRUSE [id number] 05:46:08 Test Item Value Reference Range Interpretation Comments MAGNESIUM (BEAKER) (test code = 2.0 mg/dL 1.6-2.6 627) [employer] Developer ID Judy KRUSE [id number] 05:46:08 Test Item Value Reference Range Interpretation Comments PHOSPHORUS (BEAKER) (test code = 3.1 mg/dL 2.3-4.7 604) [employer] Developer ID Judy KRUSE WPT/[id number] 05:37:16 Test Item Value Reference Range Interpretation [...] (BEAKER) (test code = 413) BASIC METABOLIC [id number] 06:46:14 Test Item Value Reference Range Interpretation [...] not appl icable for dialysis patien ts [employer] Developer MARKY Judy KRUSE [facility] (HEMOGRAM ONLY)2023-01-14 06:07:14 Test Item Value Reference [...] (BEAKER) (test code = 413) BASIC METABOLIC [id number] 04:54:37 Test Item Value Reference Range Interpretation [...] not appl icable for dialysis patien ts [employer] Developer ID Judy KRUSE WCBC (HEMOGRAM ONLY)2023-01-13 04:26:05 Test Item Value [...] ng/mL 0.0-5.0 H (test code = 685) [employer] Developer ID - [id number] 07:07:42 Test Item Value Reference Range Interpretation Comments MAGNESIUM (BEAKER) (test code = 2.1 mg/dL 1.6-2.6 627) [employer] Developer ID - MMBASIC METABOLIC [id number] 07:07:41 Test Item Value Reference Range Interpretation [...] not appl icable for dialysis patien ts [employer] Developer ID - [id number] 07:02:58 Test Item Value Reference Range Interpretation Comments FERRITIN (BEAKER) (test code = 42.74 ng/mL 5.00-275.00 361) [employer] Developer ID - [id number] 06:42:02 Test Item Value Reference Range Interpretation Comments PREALBUMIN (BEAKER) (test code = 586) 5 mg/dL 14-45 L [employer] Developer ID - MMIRON, TIBC, % SAT. (WITHOUT FERRITIN)2023-01-12 06:42:02 Test Item Value Reference Range Interpretation Comments IRON (BEAKER) (test code = 547) 13.0 ug/dL 40.0-160.0 L TOTAL IRON BINDING CAPACITY 158 ug/dL 250-450 L (BEAKER) (test code = 769) IRON % SATURATION (2) (BEAKER) 8 % 20-55 L (test code = 2590) [employer] Developer ID - MMCBC (HEMOGRAM ONLY)2023-01-12 06:32:08 Test [...] = 413) RAD, CHEST, 1 VIEW, NON [id number] 21:33:00Reason for exam:->Eval lungsShould this be performed at the bedside?->Yes [facility] 1950 Sex: MFINAL [...] Alexi Grove MDReport Verified Date/Time: 01/11/2023 21:33:59 [id number] 18:27:57 Test Item Value Reference Range Interpretation Comments MAGNESIUM (BEAKER) (test code = 2.1 mg/dL 1.6-2.6 627) [employer] Developer ID - BSCOMPREHENSIVE METABOLIC [id number] 18:27:56 Test Item Value Reference Range Interpretation [...] eGF R is based on the CKD-EPI 202 equation that d oes not use a race coefficientEsti mated GFR is not as accur ate as Creatinine Rosa rain in predicting glom erular filtration rate . Estimated GFR is not appl icable for dialysis patien ts [employer] Developer ID - BSCBC W/PLT COUNT & AUTO [id number] 18:12:36 Test Item Value Reference Range Interpretation [...] PERCENT (BEAKER) (test code = 2801) PROTHROMBIN TIME/[id number] 18:06:55 Test Item Value Reference Range Interpretation Comments PROTIME (BEAKER) (test code = 15.3 seconds 11.9-14.2 H 759) INR (BEAKER) (test code = 370) 1.29 <=5.90 RECOMMENDED COUMADIN/WARFARIN INR THERAPY RANGESSTANDARD DOSE: 2.0 - 3.0 Includes: PROPHYLAXIS for venous thrombosis, systemic embolization; TREATMENT for venous thrombosis and/or pulmonary embolus.HIGH RISK: Target INR is 2.5-3.5 for patients with mechanical heart valves.[id number] 17:49:00 Test Item Value Reference Range Interpretation Comments APTT Patient (test See_Comment [Automat ed code = 3173-2) message] The system which generated this result transmitted reference range : 23 - 38 Seconds . The reference range was not used to interpr et this result as normal/abnormal . NILAM (test code = NILAM) The [facility] patient population mean normal value for aPTT is 30 seconds. Lab Interpretation Normal (test code = 55135-0) [facility] / [id number] 17:47:00 Test Item Value Reference Range Interpretation [...] tions. Lab Interpretation (test Normal code = 69751-3) [facility] - PLATELET FUNCTION TEST 2020-05-19 17:45:00 Test Item Value Reference Range Interpretation Comments COL/ADP ADP test not (test code performed due t o = EPI result with in [id number]) normal range. Tommy Hooker 05/19/2020 12:42 COL/EPI See_Comment [Automated (test code message] The = system which [id number]) generated this result transmitted reference range : [...] red cell transfusion prior to consideringplatelet supplements. [facility] WITH [id number] 15:09:00 Test Item Value Reference Range Interpretation Comments WBC (test code = See_Comment [Automated 6690-2) message] The sy stem which generated this [...] RDW-SD (test code = 45.2 fL 38.5-51.6 31889-7) RDW-CV (test code = 13.2 % 12.1-15.4 788-0) PLT (test code = See_Comment [Automated 777-3) message] The sy stem which generated this result transmitted reference range : 150 - 328 10*3/ ?L. The reference r carina was not used to interpret this result as normal/abnormal . MPV (test code = 9.7 fL 9.8-13 L 92986-9) NRBC/100 WBC (test See_Comment [Automat ed code = 7888913605) message] The system which generated this result transmitted reference range : 0.0 - 10.0 /100 WBCs. The refer ence range was not u sed to interpret th is result as normal/abnormal . NRBC x10^3 (test code <0.01 See_Comment [Auto mated = [id number]) message] The s ystem which generated this result transmitted reference range : 10*3/?L. The reference range was not used to interpret this result as normal/abnormal . GRAN MAT (NEUT) % 60.9 % (test code = 770-8) IMM GRAN % (test code 0.30 % = 7538065987) LYMPH % (test code = 29.4 % 736-9) MONO % (test code = 6.0 % 5905-5) EOS % (test code = 2.8 % 713-8) BASO % (test code = 0.6 % 706-2) GRAN MAT x10^3(ANC) 3.85 10*3/uL 1.99-6.95 (test code = 7353429183) IMM GRAN x10^3 (test <0.03 0-0.06 code = 3861196962) LYMPH x10^3 (test code 1.86 10*3/uL 1.09-3.23 = 731-0) MONO x10^3 (test code 0.38 10*3/uL 0.36-1.02 = 742-7) EOS x10^3 (test code = 0.18 10*3/uL 0.06-0.53 711-2) BASO x10^3 (test code 0.04 10*3/uL 0.01-0.09 = 704-7) Lab Interpretation Abnormal (test code = 66638-7) [facility]
[2023-05-21] MEDS ORDERED: ONDANSETRON 4 MG/2 ML VIAL ONE ×2 (09:15→21:07)
[2023-05-21] MEDS ORDERED: PANTOPRAZOLE 40 MG INJ ONE (09:15)
[2023-05-21] MEDS ORDERED: NA CHLORIDE 0.9% 1,000 ML ONE (09:16)
[2023-05-21] MEDS ORDERED: NA CHLORIDE 0.9% 250 ML ONE ×2 (09:16→10:31)
[2023-05-21 09:26] LABS: Hematocrit 17.7 % (39.6-49.0); Lymphocytes % 10.4 % (15.3-44.8); MCV 86.7 fL (80-100); MPV 6.9 fL (7.6-11.3); Platelets 372 thou/uL (152-406); RBC Red Blood Cell Count 2.05 M/uL (4.33-5.43)
[2023-05-21 09:28] LABS: Protime INR 1.48
[2023-05-21 09:31] LABS: AST/SGOT 24 U/L (15-37); Albumin 1.3 g/dL (3.4-5.0); Alkaline Phosphatase 84 U/L (45-117); BUN Blood Urea Nitrogen 34 mg/dL (7-18); Bicarbonate 24 mEq/L (21-32); Bilirubin Total 0.2 mg/dL (0.2-1.0); Glomerular Filtration Rate 74 ml/min (=/>90); Glucose Level 140 mg/dL (74-106); Potassium 4.1 mEq/L (3.5-5.1); Protein, Total 3.8 g/dL (6.4-8.2); Sodium Level 137 mEq/L (136-145)
[2023-05-21 09:32] LABS: ALT/SGPT < 10 U/L (16-61); Lipase < 6 U/L (13-75)
--- NOTE | 2023-05-21 09:35 | ER ---
Nurse's Notes [facility] Name: Carlo Neri Age: 73 yrs Sex: Male : 1950 Arrival Date: 05/21/2023 Time: 08:51 Bed 4 Private MD: Diagnosis: Hematemesis;GI Bleed/ Gastrointestinal hemorrhage, unspecified;Anemia, unspecified;Hypotension, unspecified Presentation: 05/21 09:00 Chief complaint: EMS states: n/v x1 day with blood present in his urine, stool, and kc6 vomit. BGL en route 81. Coronavirus screen: At this time, the client does not indicate any symptoms associated with coronavirus-19. Ebola Screen: No symptoms or risks identified at this time. Initial Sepsis Screen: Does the patient meet any 2 criteria? Systolic BP < 90 mmHg. Mean Arterial Pressure (MAP) < 65. HR > 90 bpm. Does the patient have a suspected source of infection? No. Patient's initial sepsis screen is negative. Risk Assessment: Do you want to hurt yourself or someone else? Patient reports no desire to harm self or others. Onset of symptoms was May 21, 2023. 09:00 Method Of Arrival: EMS: [facility] kc6 09:00 Acuity: VANITA 2 kc6 Triage Assessment: 09:02 General: Appears in no apparent distress. uncomfortable, ill, Behavior is calm, kc6 cooperative, appropriate for age. Pain: Complains of pain in abdomen. EENT: No signs and/or symptoms were reported regarding the EENT system. Neuro: Level of Consciousness is awake, alert, obeys commands, Oriented to person, place, time, situation, Appropriate for age. Cardiovascular: Denies chest pain, Heart tones S1 S2 present Capillary refill < 3 seconds Rhythm is sinus tachycardia. Respiratory: Airway is patent Trachea midline Respiratory effort is even, unlabored, Respiratory pattern is regular, symmetrical. GI: Abdomen is flat, non-distended, Bowel sounds present X 4 quads. Reports bloody stool, nausea, vomiting, Patient currently denies diarrhea. : Fleming in place to gravity drainage clamped Urine is clear. Derm: No signs and/or symptoms reported regarding the dermatologic system. Skin is intact, Skin is dry, Skin is pale, Skin temperature is warm. Musculoskeletal: No signs and/or symptoms reported regarding the musculoskeletal system. Circulation, motion, and sensation intact. Capillary refill < 3 seconds, Range of motion: intact in all extremities. Historical: - Allergies: 09:02 Dilaudid; kc6 - PMHx: 09:02 chronic back pain; Lymphoma (remission); colon cancer; kc6 - PSHx: 09:02 pain pump; Appendectomy; kc6 - Immunization history:: Adult Immunizations up to date. - Social history:: Smoking status: Patient denies any tobacco usage or history of. - Family history:: not pertinent. - Hospitalizations: : No recent hospitalization is reported. Screenin:04 [facility] ED Fall Risk Assessment (Adult) History of falling in the last 3 months, kc6 including since admission No falls in past 3 months (0 pts) Confusion or Disorientation No (0 pts) Intoxicated or Sedated No (0 pts) Impaired Gait Yes (1 pt) Mobility Assist Device Used Yes (1 pt) Altered Elimination Yes (1 pt) Score/Fall Risk Level 3 or more points = High Risk. Abuse screen: Denies threats or abuse. Denies injuries from another. Nutritional screening: No deficits noted. Tuberculosis screening: No symptoms or risk factors identified. Assessment: 09:04 Reassessment: please see triage assessment. kc6 09:20 General: Appears in no apparent distress. comfortable, Behavior is calm, cooperative, ld1 appropriate for age. Pain: Complains of pain in abdomen. Neuro: Level of Consciousness is awake, alert, obeys commands, Oriented to person, place, time, situation. Cardiovascular: Capillary refill < 3 seconds Patient's skin is warm and dry. Rhythm is sinus tachycardia. Respiratory: Airway is patent Respiratory effort is even, unlabored. GI: Abdomen is flat, non-distended, Reports lower abdominal pain, upper abdominal pain, nausea, vomiting. : No signs and/or symptoms were reported regarding the genitourinary system. EENT: No signs and/or symptoms were reported regarding the EENT system. Derm: No signs and/or symptoms reported regarding the dermatologic system. Musculoskeletal: No signs and/or symptoms reported regarding the musculoskeletal system. 10:20 Reassessment: Patient appears in no apparent distress at this time. No changes from kc6 previously documented assessment. Patient and/or family updated on plan of care and expected duration. Pain level reassessed. Patient is alert, oriented x 3, equal unlabored respirations, skin warm/dry/pink. 10:45 Reassessment: please see blood transfusion flow sheet for further vital signs. kc6 11:35 Reassessment: Patient appears in no apparent distress at this time. No changes from kc6 previously documented assessment. Patient and/or family updated on plan of care and expected duration. Pain level reassessed. Patient is alert, oriented x 3, equal unlabored respirations, skin warm/dry/pink. 13:00 Reassessment: Patient appears in no apparent distress at this time. No changes from kc6 previously documented assessment. Patient and/or family updated on plan of care and expected duration. Pain level reassessed. Patient is alert, oriented x 3, equal unlabored respirations, skin warm/dry/pink. 14:20 Reassessment: Patient appears in no apparent distress at this time. No changes from kc6 previously documented assessment. Patient and/or family updated on plan of care and expected duration. Pain level reassessed. Patient is alert, oriented x 3, equal unlabored respirations, skin warm/dry/pink. 15:20 Reassessment: Patient appears in no apparent distress at this time. No changes from kc6 previously documented assessment. Patient and/or family updated on plan of care and expected duration. Pain level reassessed. Patient is alert, oriented x 3, equal unlabored respirations, skin warm/dry/pink. 16:20 Reassessment: Patient appears in no apparent distress at this time. No changes from kc6 previously documented assessment. Patient and/or family updated on plan of care and expected duration. Pain level reassessed. Patient is alert, oriented x 3, equal unlabored respirations, skin warm/dry/pink. 17:20 Reassessment: Patient appears in no apparent distress at this time. No changes from kc6 previously documented assessment. Patient and/or family updated on plan of care and expected duration. Pain level reassessed. Patient is alert, oriented x 3, equal unlabored respirations, skin warm/dry/pink. 19:00 Reassessment: [facility] TRANSFER IN PROCESS. TRANSPORT PENDING. bp 19:30 Reassessment: : MIKE [phone]. bp 20:30 Reassessment: PT DIANE WITH TRANSPORT. bp Vital Signs: 09:00 BP 79 / 58; Pulse 118; Resp 16 S; Temp 97.9(O); Pulse Ox 100% on 2 lpm NC; Weight 64 kg kc6 (M); Height 6 ft. 3 in. (R); 09:20 BP 92 / 58; Pulse 117; Resp 14 S; Pulse Ox 100% on 2 lpm NC; kc6 09:20 BP 92 / 58; Pulse 115; Resp 18; Pulse Ox 100% on 2 lpm NC; ld1 09:57 BP 104 / 58; Pulse 115; Resp 16 S; Pulse Ox 100% on 2 lpm NC; kc6 10:30 BP 91 / 59; Pulse 118; Resp 20 S; Pulse Ox 98% on 2 lpm NC; kc6 11:35 BP 112 / 64; Pulse 113; Resp 18 S; Pulse Ox 97% on 2 lpm NC; kc6 11:35 BP 112 / 64; Pulse 112; rn 13:01 BP 95 / 66; Pulse 120; Resp 17 S; Pulse Ox 100% on 2 lpm NC; kc6 14:20 BP 98 / 60; Pulse 116; Resp 18 S; Pulse Ox 100% on 2 lpm NC; kc6 14:35 BP 99 / 65; Pulse 118; Resp 17; Pulse Ox 98% on 2 lpm NC; ld1 15:30 BP 98 / 55; Pulse 115; Resp 18 S; Pulse Ox 93% on 2 lpm NC; kc6 16:30 BP 98 / 69; Pulse 119; Resp 20 S; Pulse Ox 94% on 2 lpm NC; kc6 18:00 BP 111 / 53; Pulse 121; Resp 19 S; Pulse Ox 96% on 2 lpm NC; kc6 19:00 BP 98 / 69; Pulse 121; Resp 21; Pulse Ox 94% ; bp 09:00 Body Mass Index 17.64 (64.00 kg, 190.5 cm) 6 ED Course: 08:53 Patient arrived in ED. ld1 08:53 Shahid Hinojosa MD is Attending Physician. rn 09:00 Protime (+inr) Sent. ld1 09:00 Ptt, Activated Sent. ld1 09:00 Lactate w/ 2H reflex if indic. Sent. ld1 09:00 CBC with Diff Sent. ld1 09:00 CMP Sent. ld1 09:00 Lipase Sent. ld1 09:02 Triage completed. kc6 09:02 Arm band placed on. kc6 09:04 Maintain EMS IV. Dressing intact. Good blood return noted. Site clean \T\ dry. Gauge \T\ connie 6 site: 18G LAC. 09:04 Patient has correct armband on for positive identification. Placed in gown. Bed in low kc6 position. Call light in reach. Side rails up X2. Client placed on continuous cardiac and pulse oximetry monitoring. NIBP monitoring applied. duralumin metalworker on. 09:19 Blanca Singh, RN is Primary Nurse. kc6 09:20 No provider procedures requiring assistance completed. ld1 09:21 Type And Screen Sent. cp4 09:21 Protime (+inr) Sent. cp4 09:21 Ptt, Activated Sent. cp4 09:22 Lactate w/ 2H reflex if indic. Sent. cp4 09:22 CBC with Diff Sent. cp4 09:22 CMP Sent. cp4 09:22 Lipase Sent. cp4 09:36 CT Abd/Pelvis - IV Contrast Only In Process Unspecified. EDMS 09:53 pts .............[phone]. bd 09:55 Inserted saline lock: 18 gauge in right antecubital area, using aseptic technique. kc6 Blood collected. 11:23 initiated transfer to [facility]. bd 16:20 Assisted provider with central line placement. Set up central line tray. Triple lumen kc6 line placed in right femoral. Line placed by Shahid Hinojosa MD Placement verified by blood return, Dressed with Tegaderm, Patient tolerated well. Was patient positioned to in a way to prevent air embolism? Yes. Was procedure site sterilized? Yes, with chlorhexidine. Was the site allowed to dry? Yes. During the procedure, did the Practitioner(s) maintain a sterile field? Yes. Was blood aspirated from each lumen? Yes. 16:46 no icu beds at [facility]. initiated transfer to [facility]. bd 18:10 pt accepted in transfer to [facility] by Dr Hudson admin approval given by orestes Mcgarry. 20:40 Attending Physician role handed off by Shahid Hinojosa MD pf1 20:41 Abdulkadir Mcgowan MD is Attending Physician. rusty Administered Medications: 09:20 Drug: Ondansetron IVP 4 mg IVP once; over 2 minutes Route: IVP; Site: left antecubital; kc6 09:55 Follow up: Response: No adverse reaction; Nausea unchanged; Vomiting unchanged kc6 09:20 Drug: NS 0.9% IV 500 ml IV at bolus once Route: IV; Rate: bolus; Site: left antecubital;kc6 10:29 Follow up: Response: No adverse reaction; IV Status: Completed infusion; IV Intake: kc6 1000ml 09:20 Drug: Pantoprazole IVP 40 mg IVP once Route: IVP; Site: left antecubital; kc6 09:55 Follow up: Response: No adverse reaction 6 09:20 Drug: Pantoprazole IV 8 mg/hr IV at 25 ml/hr continuous; (Standard dilution is 80 mg in kc6 250 mL NS) Route: IV; Rate: 25 ml/hr; Site: left antecubital; 11:01 Follow up: Response: No adverse reaction; IV Status: Infusion continued upon transfer; kc6 IV Intake: 250ml 09:51 Drug: Promethazine IVP 12.5 mg IVP once Route: IVP; Site: left antecubital; ld1 10:29 Follow up: Response: No adverse reaction; Nausea is decreased; Vomiting decreased kc6 10:25 Drug: Rocephin IV 1 grams IV at calculated rate once; Given slow IV push per pharmacy kc6 instructions Route: IV; Rate: calculated rate; Site: left antecubital; 11:01 Follow up: Response: No adverse reaction; IV Status: Completed infusion kc6 10:59 Drug: Zithromax IVPB 500 mg IVPB once over 1 hrs; mix in 250 mL NS Route: IVPB; Infused kc6 Over: 1 hrs; Site: left antecubital; 14:21 Follow up: Response: No adverse reaction; IV Status: Completed infusion; IV Intake: kc6 250ml 11:11 Drug: NS 0.9% IV 500 ml IV at bolus once Route: IV; Rate: bolus; Site: left antecubital;kc6 11:29 Follow up: Response: No adverse reaction; IV Status: Completed infusion; IV Intake: kc6 500ml 17:29 Drug: Norepinephrine IV 0.1 mcg/kg/min IV at calculated rate See Administration jl7 Instructions; (Standard concentration 4 mg / 250 mL D5W); Recommended max rate 3 mcg/kg/min; Titrate 0.05 mcg/kg/min as often as every 5 minutes to achieve goal (see titration policy); Goal parameter MAP greater than 65 mmHg. Route: IV; Rate: calculated rate; Site: right femoral; 17:50 Follow up: Rate change 0.15 mcg/kg/min kc6 20:31 Follow up: IV Status: Infusion continued upon transfer bp 20:57 Drug: Magnesium Sulfate IVPB 2 grams IVPB once over 1 hrs Route: IVPB; Infused Over: 1 rv hrs; Site: right femoral; 20:57 Drug: Ondansetron IVP 4 mg IVP once; over 2 minutes Route: IVP; Site: left antecubital; rv Intake: 10:29 IV: 1000ml; Total: 1000ml. kc6 11:01 IV: 250ml; Total: 1250ml. kc6 11:29 IV: 500ml; Total: 1750ml. kc6 14:21 IV: 250ml; Total: 2000ml. kc6 Outcome: 09:35 ER care complete, transfer ordered by . rn 20:31 Patient left the ED. bp 21:01 Patient left the ED. pf1 Signatures: Dispatcher [employer] EDMS Philly Armijo Corey, MD MD cha Nieto, Roman, MD MD rn Leal, Jahala, RN RN ji7 Merlin Newby RN RN Curtis Wilson, RN CHAN rv Quita Kohler, CHAN RN ld1 Blanca Singh RN RN connie6 Ashley Le RN RN pf1 Marie Taylor cp
--- NOTE | 2023-05-21 09:35 | EDPHYS ---
Physician Documentation [facility] Name: Carlo Neri Age: 73 yrs Sex: Male : 1950 Arrival Date: 05/21/2023 Time: 08:51 Bed 4 Private MD: YVONNE Physician Abdulkadir Mcgowan HPI: 05/21 08:57 This 73 yrs old Male presents to ER via Unassigned with complaints of Nausea/Vomiting. rn 08:57 The patient presents to the emergency department with nausea, vomiting, abdominal pain. rn Onset: The symptoms/episode began/occurred this morning. Possible causes: unknown. The symptoms are aggravated by nothing. The symptoms are alleviated by nothing. Associated signs and symptoms: Pertinent positives: GI bleeding, nausea, vomiting, Pertinent negatives: fever. Severity of symptoms: At their worst the symptoms were moderate in the emergency department the symptoms are unchanged. The patient has not experienced similar symptoms in the past. The patient has not recently seen a physician. EMS reports shelter noticed vomiting dark blood this morning. Patient with known colon cancer, states is in the rectum. Sees Dr. Wheeler and undergoing chemotherapy. Denies any liver problems. Denies blood thinners. Reports abdominal pain and chronic back pain. Historical: - Allergies: 09:02 Dilaudid; kc6 - PMHx: 09:02 chronic back pain; Lymphoma (remission); colon cancer; kc6 - PSHx: 09:02 pain pump; Appendectomy; kc6 - Immunization history:: Adult Immunizations up to date. - Social history:: Smoking status: Patient denies any tobacco usage or history of. - Family history:: not pertinent. - Hospitalizations: : No recent hospitalization is reported. ROS: 08:57 Constitutional: Negative for fever, chills, and weight loss, Cardiovascular: Negative rn for chest pain, palpitations, and edema, Respiratory: Negative for shortness of breath, cough, wheezing, and pleuritic chest pain, Abdomen/GI: Positive for abdominal pain and nausea/vomiting with coffee-ground emesis Back: Negative for injury and pain, MS/Extremity: Negative for injury and deformity, Skin: Negative for injury, rash, and discoloration, Neuro: Positive for generalized weakness Exam: 08:57 Constitutional: Thin male, cachectic, holding emesis bag with coffee-ground emesis in rn bag Head/Face: Normocephalic, atraumatic. Eyes: Pale conjunctiva ENT: Dry mucous membranes Cardiovascular: Tachycardic, regular Respiratory: No increased work of breathing, no retractions or nasal flaring. Abdomen/GI: Soft, no focal tenderness, no distention Skin: Pale skin MS/ Extremity: Pulses equal, no cyanosis. Neuro: Awake and alert, GCS 15, oriented to person, place, time, and situation. Vital Signs: 09:00 BP 79 / 58; Pulse 118; Resp 16 S; Temp 97.9(O); Pulse Ox 100% on 2 lpm NC; Weight 64 kg kc6 (M); Height 6 ft. 3 in. (R); 09:20 BP 92 / 58; Pulse 117; Resp 14 S; Pulse Ox 100% on 2 lpm NC; kc6 09:20 BP 92 / 58; Pulse 115; Resp 18; Pulse Ox 100% on 2 lpm NC; ld1 09:57 BP 104 / 58; Pulse 115; Resp 16 S; Pulse Ox 100% on 2 lpm NC; kc6 10:30 BP 91 / 59; Pulse 118; Resp 20 S; Pulse Ox 98% on 2 lpm NC; kc6 11:35 BP 112 / 64; Pulse 113; Resp 18 S; Pulse Ox 97% on 2 lpm NC; kc6 11:35 BP 112 / 64; Pulse 112; rn 13:01 BP 95 / 66; Pulse 120; Resp 17 S; Pulse Ox 100% on 2 lpm NC; kc6 14:20 BP 98 / 60; Pulse 116; Resp 18 S; Pulse Ox 100% on 2 lpm NC; kc6 14:35 BP 99 / 65; Pulse 118; Resp 17; Pulse Ox 98% on 2 lpm NC; ld1 15:30 BP 98 / 55; Pulse 115; Resp 18 S; Pulse Ox 93% on 2 lpm NC; kc6 16:30 BP 98 / 69; Pulse 119; Resp 20 S; Pulse Ox 94% on 2 lpm NC; kc6 18:00 BP 111 / 53; Pulse 121; Resp 19 S; Pulse Ox 96% on 2 lpm NC; kc6 19:00 BP 98 / 69; Pulse 121; Resp 21; Pulse Ox 94% ; bp 09:00 Body Mass Index 17.64 (64.00 kg, 190.5 cm) kc6 Procedures: 16:30 Central Line: the site was prepped with Betadine, in sterile fashion, a triple lumen rn catheter was inserted, in the right femoral vein, in 1 attempts. placement was verified, by blood return, the site was dressed with Tegaderm, using sterile technique, the patient tolerated the procedure, well. MDM: 08:53 Patient medically screened. rn 09:33 ED course: 1 unit of blood ordered for transfusion. rn 09:34 Differential diagnosis: Gastritis, upper GI bleed. Data reviewed: vital signs, nurses rn notes, lab test result(s), and as a result, I will admit patient. Consideration of Admission/Observation Patient was admitted/placed on observation. Escalation of care including admission/observation considered. Care significantly affected by the following chronic conditions: Cancer. Counseling: I had a detailed discussion with the patient and/or guardian regarding the historical points, exam findings, and any diagnostic results supporting the discharge/admit diagnosis, lab results, the need for further work-up and treatment in the hospital, the need to transfer to another facility, for higher level of care, [facility] does not immediately have the required specialist. 12:12 ED course: Spoke with hospitalist at [facility], wants another unit of blood transfused rn and repeat lactate and if vitals continue to improve and lactate improves will accept patient for transfer. Requested possible ICU transfer given this is going to prolong and delay transfer and they do not have any open beds. Currently finishing his first unit of blood. 17:06 ED course: Patient's monitor with change, EKG shows diffuse ST depression, patient rn denies chest pain or shortness of breath. Most likely demand ischemia from anemia and GI bleed. Central line was placed and Levophed started. Will send troponin but this is likely a secondary effect from anemia and GI bleed.. 17:47 ED course: Accepted for transfer to [facility] for ICU level care and GI consultation. . rn 05/21 08:54 Order name: CBC with Diff; Complete Time: :47 rn 05/21 08:54 Order name: CMP; Complete Time: :47 rn 05/21 08:54 Order name: Lipase; Complete Time: :47 rn 05/21 08:54 Order name: Lactate w/ 2H reflex if indic.; Complete Time: 09:54 rn 05/21 08:54 Order name: Protime (+inr); Complete Time: 09:30 rn 05/21 08:54 Order name: Ptt, Activated; Complete Time: 09:30 rn 05/21 08:54 Order name: Type And Screen rn 05/21 09:34 Order name: Bb Add On bd 05/21 10:06 Order name: Packed RBC Leukored EDSC 05/21 12:30 Order name: Lactate Sepsis 2 HR Follow-up; Complete Time: 15:07 EDSC 05/21 15:08 Order name: Lactate w/ 2H reflex if indic.; Complete Time: 16:03 rn 05/21 17:05 Order name: Troponin High Sensitivity; Complete Time: 20:40 rn 05/21 08:54 Order name: CT Abd/Pelvis - IV Contrast Only; Complete Time: 10:16 rn 05/21 20:43 Order name: EKG; Complete Time: 20:43 [facility] 05/21 08:54 Order name: IV Saline Lock; Complete Time: 09:00 rn 05/21 08:54 Order name: Labs collected and sent; Complete Time: 09:00 rn 05/21 20:43 Order name: EKG - Nurse/Tech; Complete Time: 20:57 [facility] Administered Medications: 09:20 Drug: Ondansetron IVP 4 mg IVP once; over 2 minutes Route: IVP; Site: left antecubital; kc6 09:55 Follow up: Response: No adverse reaction; Nausea unchanged; Vomiting unchanged kc6 09:20 Drug: NS 0.9% IV 500 ml IV at bolus once Route: IV; Rate: bolus; Site: left antecubital;kc6 10:29 Follow up: Response: No adverse reaction; IV Status: Completed infusion; IV Intake: kc6 1000ml 09:20 Drug: Pantoprazole IVP 40 mg IVP once Route: IVP; Site: left antecubital; kc6 09:55 Follow up: Response: No adverse reaction kc6 09:20 Drug: Pantoprazole IV 8 mg/hr IV at 25 ml/hr continuous; (Standard dilution is 80 mg in kc6 250 mL NS) Route: IV; Rate: 25 ml/hr; Site: left antecubital; 11:01 Follow up: Response: No adverse reaction; IV Status: Infusion continued upon transfer; kc6 IV Intake: 250ml 09:51 Drug: Promethazine IVP 12.5 mg IVP once Route: IVP; Site: left antecubital; ld1 10:29 Follow up: Response: No adverse reaction; Nausea is decreased; Vomiting decreased kc6 10:25 Drug: Rocephin IV 1 grams IV at calculated rate once; Given slow IV push per pharmacy kc6 instructions Route: IV; Rate: calculated rate; Site: left antecubital; 11:01 Follow up: Response: No adverse reaction; IV Status: Completed infusion kc6 10:59 Drug: Zithromax IVPB 500 mg IVPB once over 1 hrs; mix in 250 mL NS Route: IVPB; Infused kc6 Over: 1 hrs; Site: left antecubital; 14:21 Follow up: Response: No adverse reaction; IV Status: Completed infusion; IV Intake: kc6 250ml 11:11 Drug: NS 0.9% IV 500 ml IV at bolus once Route: IV; Rate: bolus; Site: left antecubital;kc6 11:29 Follow up: Response: No adverse reaction; IV Status: Completed infusion; IV Intake: kc6 500ml 17:29 Drug: Norepinephrine IV 0.1 mcg/kg/min IV at calculated rate See Administration jl7 Instructions; (Standard concentration 4 mg / 250 mL D5W); Recommended max rate 3 mcg/kg/min; Titrate 0.05 mcg/kg/min as often as every 5 minutes to achieve goal (see titration policy); Goal parameter MAP greater than 65 mmHg. 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 Total time: 85 minutes Signatures: Dispatcher [employer] EDSC Abdulkadir Mcgowan MD MD cha Nieto, Roman, MD MD rn Leal, Jahala RN RN jl7 Merlin Newby RN RN bp Curtis Quispe, RN RN rv Matthew Kohler, DO ms3 Quita Kohler RN RN ld1 Blanca Singh RN RN kc6 Ashley Le RN RN pf1 Corrections: (The following items were deleted from the chart) 17: 09:35 rn rn 17:44 09:35 [facility] rn rn 17:44 09:34 Critical care time: Bedside Care: 35 minutes. Total time: 35 minutes rn rn 20:31 17:44 rn bp 21:01 20:31 bp pf1
[2023-05-21] MEDS ORDERED: NA CHLORIDE 0.9% 500 ML ONE ×2 (09:52→11:20)
[2023-05-21] MEDS ORDERED: PROMETHAZINE INJ 25 MG/ML AMP ONE (10:00)
--- NOTE | 2023-05-21 10:08 | RAD REPORT ---
EXAM DESCRIPTION: CT - Abdomen Pelvis W Contrast - 05/21/2023 9:36 am CLINICAL HISTORY: hx of colon cancer, hematemesis;Abd pain COMPARISON: CT RAD RX FIELD SPINE dated 02/25/2023; Chest Abdomen Pelvis W Cont dated 01/10/2023 TECHNIQUE: Thin cut axial CT imaging of the abdomen and pelvis was performed following intravenous a dministration of 100 mL Isovue 300. Multiplanar reformats were generated and reviewed. All CT scans are performed using dose optimization technique as appropriate and may include automated exposure control or mA/KV adjustment according to patient size. FINDINGS: Left pleural thickening or small effusion with adjacent atelectasis, stable. Developing co nfluent ground-glass opacities in the right lower lobe medially. Peribronchovascular 8 millimeter brea id nodule on axial image 5 appears new since the prior exam. The liver, spleen, adrenal glands, and pancreas show no suspicious findings. Gallbladder and biliary tree are also without suspicious finding. Symmetric renal function is seen with no hydronephrosis or suspicious renal mass. Numerous renal merari ical cysts, grossly stable, largest measuring 4.1 cm at the right lower pole, stable Dilated proximal small bowel loops, including the duodenum and proximal jejunum. No discrete transiti on point is appreciated, although streak artifact resulting from all the subcutaneous right flank lewis n pump pack limits evaluation. Decompressed distal small bowel is seen. Nodular mass involving the lo wer rectum and anal canal appears to have increased in size since the prior examinations, with exophy tic components that involves the presacral space and the lower sacrococcygeal segments. The mass elza ures 12.2 x 9.2 cm in greatest axial dimensions, previously measured 9.1 x 3.1 cm. In greatest cranio caudal extent, the anorectal component of the mass measures 13.5 cm. No free air, free fluid or infla mmatory stranding. No appreciable hernias or bulky lymphadenopathy. Small bilateral inguinal lymph no jose are grossly stable. The urinary bladder is decompressed with Fleming catheter in place. Superior endplate compression deformity at L2 with moderate vertebral body height loss, stable. Left seventh and right ninth rib focal areas of sclerosis area new or progressive since the prior exam, co uld relate to sequelae of fracture healing or focal osseous metastases. IMPRESSION: Dilated proximal small bowel loops to the level of the proximal jejunum, with no discret e transition point. Streak artifact resulting from right flank pain pump limits evaluation. Findings are most suggestive of ileus. Enlarging bulky masslike wall thickening along the lower rectum and anal canal, with bulky components extending posteriorly into the presacral space, and involving the lower sacral coccygeal segments. T he largest dimensions are stated above. Developing confluent ground-glass opacities in the right lower lobe medially. These are favored to re present pneumonia. Solid peribronchovascular right lower lobe 8 millimeter nodule is new since the prior CT exams, and c ould be related to the above infectious/inflammatory process, or represent a metastatic lung nodule. Additional evaluation by dedicated CT of the chest is recommended. Questionable small foci of sclerosis along the left seventh and right ninth ribs, may relate to seque lae of fracture healing, or possibly small osseous metastases. Other stable findings as above.
[2023-05-21] MEDS ORDERED: CEFTRIAXONE 1000 MG/VIAL ONE (10:31)
[2023-05-21] MEDS ORDERED: AZITHROMYCIN 500 MG INJ IVPB ONE (10:31)
[2023-05-21] MEDS ORDERED: NOREPINEPHRINE BITARTRATE/D5W 4 MG/250 ML BAG IV ONE (17:30)
[2023-05-21] MEDS ORDERED: PANTOPRAZOLE INJ 80 MG in NA CHLORIDE 0.9% 250 ML IV SCH (19:00)
[2023-05-21] MEDS ORDERED: Magnesium Sulfate 2gm IVPB 2 G/50 ML BAG IV ONE (21:00)
[2023-05-21 21:23] VITALS: TEMP 97.9
[2023-05-21 22:19] VITALS: BP 98/69; O2SAT 94
--- NOTE | 2023-05-22 14:31 | EKG ---
Test Date: 2023-05-21 Test Time: 20:47:02 Supervisor [employer]: RV MEASUREMENT RESULTS: Intervals: Rate: 124 MO: 202 QRSD: 102 QT: 388 QTc: 557 [place]: P: -7 MO: 202 QRS: 17 T: -78 INTERPRETIVE STATEMENTS: Sinus tachycardia Low voltage QRS ST elevation, consider anterolateral injury or acute infarct ACUTE CA / STEMI Abnormal ECG Compared to ECG 05/12/2023 15:46:31 Low QRS voltage now present ST (T wave) deviation now present Myocardial infarct finding still present Electronically Signed On 05-22-23 14:30:17 CDT by Ashok Gonzalez
--- NOTE | 2023-05-22 14:32 | EKG ---
Test Date: 2023-05-21 Test Time: 17:03:56 Foot Specialist: NATASHA MEASUREMENT RESULTS: Intervals: Rate: 116 MS: 182 QRSD: 80 QT: 342 QTc: 475 [place]: P: MS: 182 QRS: 74 T: 236 INTERPRETIVE STATEMENTS: Sinus tachycardia with fusion complexes ST elevation, consider inferior injury or acute infarct ACUTE MS Consider right ventricular involvement in acute inferior infarct Abnormal ECG Compared to ECG 05/12/2023 15:46:31 Fusion complex(es) now present ST (T wave) deviation now present Myocardial infarct finding still present Myocardial infarct finding still present Electronically Signed On 05-22-23 14:30:32 CDT by Ashok Gonzalez
== END 2023-05-21 21:01 | disposition short-term general hospital (02) ==
LOC: ER 08:51
PROC: 30233N1 Transfusion of Nonautologous Red Blood Cells into Peripheral Vein, Percutaneous Approach (ICD-10-PCS; principal; 2023-05-21)
PROC: 06HM33Z Insertion of Infusion Device into Right Femoral Vein, Percutaneous Approach (ICD-10-PCS; 2023-05-21)
DX: K92.0 Hematemesis (principal); D64.9 Anemia, unspecified; I95.9 Hypotension, unspecified; C18.9 Malignant neoplasm of colon, unspecified; Z88.5 Allergy status to narcotic agent
CPT/HCPCS: 85025; 36415; 86900; 86850; 85610; 86901; 83605 ×3; 85730; 86920 ×3; 84484; 83690; 80053; 74177; 36430; 36556; Q9967; J2550; J3475; C9113 ×2; J2405 ×2; P9016 ×2; J7050 ×3; J7040; J7030; J0696; 93005